=== PATIENT | male | born 1935 | race Two or more races ===

== ENCOUNTER 2025-01-27 06:33 | Inpatient (IN) | payer OTHER, SELFPAY ==
[2025-01-27] VITALS (17 sets, daily range): BP systolic 102–147; BP diastolic 62–90; BMI 25.6
--- NOTE | 2025-01-27 03:38 | ED.GENMED ---
History of Present Illness
General
Chief Complaint: Chest Pain
Source: patient and ambulance crew
Exam Limitations: clinical condition (Primary language is Guinean. 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
Time Seen by Provider: 01/27/25 03:38
History of Present Illness
History of Present Illness:
This is an 89-year-old gentleman who resides at home alone. He has history of hypertension, BPH, hyperlipidemia. He woke up approximately 1 hour prior to arrival to go to the bathroom and developed substernal chest pain radiating to his abdomen.
No history of similar episodes in the past.
His primary language is Guinean.
He arrives via EMS. Prehospital EKG concerning for anterior wall WY/STEMI. No name provided prehospital however, no old EKGs available for comparison.
He received 324 mg chewable aspirin prehospital as well as 3 sublingual nitroglycerin, thus far no improvement in pain.
His daily medications include Norvasc 10 mg, finasteride 5 mg. He takes 1 other medication he cannot recall. He had been on a statin in the past but currently not taking a statin.
He denies drug allergies.
Past History
Past History
ED Past Medical History: HTN, Hypercholesterolemia and Other (BPH)
ED Past Surgical History: None
Social History
Tobacco: Non-smoker
Alcohol: None
Drug: None
Personal:
Living: alone
Employment: Retired
Family History
Family History: Unable to obtain
Phy Exam
Physical Exam
Physical Exam:
GENERAL: 89-year-old gentleman appears his stated age, awake and alert, mildly to moderately anxious. Easily communicative.
EYE: pupils equal and reactive. anicteric
NECK: Supple, nontender, no meningismus, no significant adenopathy. No JVD.
ENT: posterior pharynx is clear, oral mucosa is mildly dry. No rhinorrhea.
CARDIAC: Regular rate and rhythm. no murmur.
LUNGS: Clear breath sounds bilaterally, no acute respiratory distress, no wheezes/rales/rhonchi
ABDOMEN: Soft, nondistended, without focal tenderness, no r/g, no cvat. normoactive BS.
NEUROLOGICAL: Alert and oriented x3, no focal neuro deficits.
SKIN: Warm and dry, normal color, skin intact. No rash.
MUSCULOSKELETAL: No C/C/E. peripheral pulses are full and equal b/l. No palpable tenderness.
PSYCH: Normal and appropriate interaction.
Scores
Heart Score for Chest Pain Patients
STEMI patient?: Yes
Course
Orders/Labs/Results
Orders:
Orders
01/27/25 03:33
EKG [Electrocardiogram (*1)] Urgent
Reason for Study: Chest Pain
EKG- Treatment ONCE
01/27/25 03:36
Complete Blood Count/With Diff Urgent
Comprehensive Metabolic Panel Urgent
PT/INR [Prothrombin Time] Urgent
Troponin I Urgent
01/27/25 03:47
Heparin 5,000 units .ROUTE .STK-MED ONE
Ticagrelor [Brilinta] 180 mg .ROUTE .STK-MED ONE
01/27/25 05:30
Code Status As Directed
Resuscitation Status: Full Code
Acetaminophen [Tylenol] 650 mg PO Q4HPRN PRN
01/27/25 05:31
Admit Patient As Directed
Co-Sign Provider:
Level of Care: Inpatient admission
Assign to:: IVU
Physician / Group: David
Diagnosis: Anterior STEMI
Reason for Hospitalization: Anterior STEMI
Expected length of stay greater than two midnights?: Yes
ELOS- Estimated Length of Stay in days: 4
I certify the patient meets the requirements for IP care: Yes
Electrocardiogram (*1) Urgent
Reason for Study: Other
Other Reason for Exam: s/p intervention
CARDIAC REHAB CONSULT Routine
Co-Sign Provider:
Cardiac Rehab & Exercise Evaluation Referral
Type of Cardiac Rehab Referral: Outpatient
Diagnosis: STEMI
Date of Diagnosis/Surgery: [id number]
Referring Provider: Yg Hernandez
[facility] Intensive Cardiac Rehab Exercise Prescription
The above named person is capable of participating in an intensive cardiac rehab exercise therapy program
under the guidance of the [facility] cardiac rehab staff, outpatient registered dieticians and
supervision of a physician.
ICR Program Objectives:
Provide supervised exercise, cooking classes, nutritional counseling and healthy mind-set education to
improve the function/symptom free work capacity to an optimal level as well as control risk factors to
prevent the progression of heart disease. During the supervised exercise therapy session some or all of
the following may be included in the cardiac rehab session: ECG telemetry, BP, heart rate, rate of
perceived exertion, symptoms/tolerance, cholesterol testing and education. Exercise modalities may
include: treadmill, upright or recumbent bike, spin bike, rowing machine, elliptical, recumbent
elliptical, arm-bike machine, recumbent stepper and free weights.
Intensity:
All CR staff will use ACSM guidelines: Most patients will exercise in the following range: Heart Rate
[place] range of 40% to 80% & Oxygen Uptake reserve range 40-80% (VO2R). Peak heart rate and VO2 are
derived from the cardiac rehab submaximal graded exercise test at RPE of 13/14 out of 20. Initial
intensity range: RPE 11 to 14/20 and may expand to 11 to 16/20.
Duration & Frequency:
If appropriate the patient will be progressed up to 40 minutes of exercise therapy. Patients will be
instructed to come three times a week in cardiac rehab and at a home/other gym to achieve optimal
physical activity/exercies i.e. 4000-10,000 steps per day.
Education:
The patient will receive one-on-one education during their orientation, initial exercise evaluation, ITP
reassessments and discharge session. Each exercise session will also include an education class (30-40
minutes).
Activity As Directed
Activity Level: Bedrest
Comment: refer to hemostasis device used for bedrest duration, then ambulate ad sandra
Oil And Gas Well Treatment Operator Procedure As Directed
Cardiac Cath Procedure: percutaneous coronary intervention
Femoral Artery Hemostasis Method As Directed
Procedure performed:: Percutaneous Coronary Int
Type of femoral hemostasis method used:: Internal Closure Device
Duration of bedrest (hours):: 4
Call provider if:: hematoma present after hemostasis achieved
Head of Bed-Restrictions As Directed
Comment: may elevate head of bed 30 degrees
Intake/ Output As Directed
Frequency: Per unit guidelines
Notify MD As Directed
Notify physician if: immediately for chest pain or bleeding from access site(s)
Site Checks As Directed
Check access site for bleeding/hematoma: Yes
Comment: on arrival, Q15min x4, Q30min x2, Q1 hr x2, Q2 hr x2, Q4 hr or per
protocol
Vascular Checks As Directed
Location: distal to access site - pulse check
Frequency: Other
Comment: on arrival, Q15min x4, Q30min x2, Q1 hr x2, Q2 hr x2, Q4 hr or per protocol
Vital Signs As Directed
Frequency: Other
Additional Instructions:: on arrival, Q15min x4, Q30min x2, Q1 hr x2, Q2 hr x2, then Q4 hr or per unit
protocol
PRN Pain Medication Management As Directed
May give lesser potent ordered pain med per pt: Yes
preference::
Protocol:: Medication orders for pain may be administered in a
manner that supports deferring to patient preference
when the pt is:
- Requesting an ordered lesser potent pain medication.
Least to most potent pain medications are defined
as: acetaminophen < NSAID < tramadol < opioids
(morphine, oxycodone, hydromorphone).
- Requesting a lesser dose of the same medication IF
ORDERED.
- Requesting a less intrusive route of administration
if both routes are prescribed by the provider (PO <
IV).
DX Deep Vein Thrombosis Video Routine
01/27/25 05:33
Glycohemoglobin (HgbA1c) Routine
01/27/25 05:35
Electrocardiogram (*1) Urgent
Reason for Study: Other
Other Reason for Exam: s/p intervention
Activity As Directed
Activity Level: Out of Bed- Chair
Comment: bed/chair rest for 2 hours then out of bed ad sandra
Oil And Gas Well Treatment Operator Procedure As Directed
Cardiac Cath Procedure: percutaneous coronary intervention
Intake/ Output As Directed
Frequency: Per unit guidelines
Notify MD As Directed
Notify physician if: immediately for chest pain or bleeding from access site(s)
Radial Artery Hemostasis Method As Directed
Instructions:: 3 mL out at 2 hour posts placement of band
3 mL out at 2 1/2 hours post placement of band
3 mL out at 3 hours post placement of band
Off at 3 1/2 hours post placement of band
If any oozing or hemotoma occurs:: re-inflate band and call provider
Site Checks As Directed
Check access site for bleeding/hematoma: Yes
Comment: on arrival, Q15min x4, Q30min x2, Q1 hr x2, Q2 hr x2, Q4 hr or per
protocol
Vascular Checks As Directed
Location: distal to access site - pulse check
Frequency: Other
Comment: on arrival, Q15min x4, Q30min x2, Q1 hr x2, Q2 hr x2, Q4 hr or per protocol
Vital Signs As Directed
Frequency: Other
Additional Instructions:: on arrival, Q15min x4, Q30min x2, Q1 hr x2, Q2 hr x2, then Q4 hr or per unit
protocol
01/27/25 06:00
Electrocardiogram (*1) IN AM
Reason for Study: Other
Other Reason for Exam: s/p intervention
Electrocardiogram (*1) Q6
Reason for Study: Other
Other Reason for Exam: s/p intervention
Comment: Obtain ECG with troponin
Cholesterol Lowering
At Your Request: Limited Participation
Cholesterol Lowering: Sodium, 2 Gram
Cardiovascular Evaluation IN AM
Nitroglycerin 100 mg/250 ml [Nitroglycerin Premix] 100 mg in 250 ml IV PER PROTOCOL
Initial dose in mcg/min, then titrate:: 5
Titrate to keep:: Chest Pain Free
Titrate to keep other:: SBP > 90 mmHg
Titrate by mcg/min:: 5 mcg/min, may increase by 10 mcg/min if dose > 20 mcg/min
Frequency of titrations (minutes):: every 5-10 minutes
Maximum dose in mcg/min:: 200
Begin to taper infusion when:: Remained at goal for 2hrs
Taper by mcg/min:: 5 mcg/min
Frequency of taper (minutes) if patient maintains goal:: 30
Taper to off?: Yes
If infusion off & no longer maintaining goal:: Contact Provider
01/27/25 08:00
Aspirin Chewable [Low Strength Aspirin] 81 mg PO DAILY
Pantoprazole [Protonix] 40 mg PO DAILY
01/27/25 09:15
Troponin I Q6H
01/27/25 12:00
Electrocardiogram (*1) Q6
Reason for Study: Other
Other Reason for Exam: s/p intervention
Comment: Obtain ECG with troponin
01/27/25 15:15
Troponin I Q6H
01/27/25 18:00
Electrocardiogram (*1) Q6
Reason for Study: Other
Other Reason for Exam: s/p intervention
Comment: Obtain ECG with troponin
Atorvastatin [Lipitor] 40 mg PO QPM
Enoxaparin Sodium [Lovenox] 40 mg SC QPM
01/27/25 20:00
Ticagrelor [Brilinta] 90 mg PO BID
01/28/25 05:57
Echo 2D MMode Color/Doppler [Echo 2D MMode Color/Doppler] Routine
Reason for Study: Anterior STEMI
Cardiology Consult: Yg Hernandez
01/28/25 06:00
Complete Blood Count/No Diff IN AM
01/29/25 06:00
Complete Blood Count/No Diff IN AM
Abnormal Lab Results
01/27/25 01/27/25 01/27/25
03:36 04:20 05:08
WBC 12.4 H 10^3/uL
(4.8-10.8)
RBC 4.42 L 10^6/uL
(4.70-6.10)
Hgb 12.8 L g/dL
(13.0-18.0)
Hct 38.9 L %
(39.0-52.0)
MCHC 32.9 L g/dL
(33.0-37.0)
MPV 11.2 H fL
(7.4-10.4)
Absolute Neuts (auto) 7.6 H 10^3/uL
(1.4-6.5)
Absolute Monos (auto) 1.0 H 10^3/uL
(0.1-0.6)
Sodium 134 L mmol/L
(135-145)
Glucose 154 H mg/dl
(70-99)
Troponin I 0.037 H* ng/ml
POC ACT Low Range 166 H Seconds 318 H Seconds
(116-155) (116-155)
01/27/25 03:36
01/27/25 03:36
Vital Signs
Initial and Last Documented VS:
Initial Vital Signs
Pulse Resp BP Pulse Ox
71 18 102/65 96
01/27/25 03:37 01/27/25 03:37 01/27/25 03:37 01/27/25 03:37
Last Documented Vital Signs
Temp Pulse Resp BP Pulse Ox
97.8 F 71 28 134/82 94
01/27/25 03:41 01/27/25 06:45 01/27/25 04:00 01/27/25 04:00 01/27/25 06:45
MDM/Problems Addressed
Differential Diagnosis Includes:
Concern for acute WY/STEMI
Aortic dissection
GERD
Acute intra-abdominal pathology
MDM/Problems Addressed:
Acute chest pain
Prehospital EKG concerning for acute anterior wall WY with anterior Q's. No old EKGs to compare.
Upon arrival to the ED patient continues with chest pain and EKG upon arrival notes progression of ST elevation anterolaterally consistent with acute anterior wall WY/STEMI.
I have been in contact with test center manager, Dr. Hernandez just prior to patient's arrival and during patient's arrival.
STEMI alert initiated promptly upon ED EKG.
Patient does have a son who resides in [place]. Son has been contacted and is on his way. Lives over an hour away.
Although patient's primary language is Guinean, he does well with understanding and speaking Azeri. Language line nuclear plant equipment operator utilized as well.
Chronic conditions affecting care: HTN and Other (Hyperlipidemia)
*Pulse Oximetry
SaO2: 96
Oxygen Mode of Delivery: Room air
Patient hypoxic: no
*EKG
Interpreted by ED Provider?: Yes
Interpretation: abnormal
Comparison EKG: no comparison EKG present
Rate: bradycardiac
Rhythm: sinus
[place]: normal axis
Interval: normal QT interval
QRS Pattern: poor R-wave progression
Ischemia: ST elevation
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
Rate: bradycardiac
Interpretation: normal
Rhythm: sinus
*Critical Care Note
Total Time (30-74mins, 75-104mins- exclusive of procedures): 25
comment:
Critical care statement: A total of 25 minutes of critical care time was provided for this patient. This includes management of unstable vital signs, evaluation of the patient at bedside, reviewing the patient's pertinent medical records, discussion
with consultants, review of old EKGs and review of pertinent medical records. This time with separate from time utilized to perform the aforementioned documented procedures
Update Note
Update Note:
03:45
Patient received 180 mg Brilinta, chewed, IV heparin 5000 units.
He did receive chewable aspirin 324 mg prehospital as well as 3 sublingual nitroglycerin.
Initially no improvement in pain but currently resting much more comfortably with marked improvement in pain. Chest pain has not completely resolved but markedly improved.
He remains hemodynamically stable. No respiratory distress.
Awaiting cardiology and Oil And Gas Well Treatment Operator team arrival.
ED Attending Note
-
Portions of this chart may have been created with voice recognition software.� Occasional wrong word or��sound alike� substitutions may have occurred due to the inherent limitations of voice recognition software.
Discharge Plan
Departure
Patient Disposition: Admit
Date of Disposition: 01/27/25
Time of Disposition: 03:43
Admit to: computer lab assistant
Admit to doctor: David
Presentation/result/management discussed w/ accepting MD/DO: Cardiology
Condition: Serious
Discharge Problem:
ST elevation (STEMI) myocardial infarction
Interventions
Interventions:
*Risk Screen - Suicide Last Done: 01/27/25 04:00
*General Assessment Last Done: 01/27/25 03:48
*Neglect/Abuse Screening Last Done: 01/27/25 04:00
*ED- Fall Risk Assessment Last Done: 01/27/25 03:48
*ED COVID-19 Vaccine History Last Done: 01/27/25 03:48
*ED Influenza Vaccine History Last Done: 01/27/25 03:48
*Nursing Disposition Last Done: 01/27/25 04:05
ED- Cardiac Assessment Last Done: 01/27/25 03:45
Discharge Date and Time
Discharge Date/Time: 01/27/25 04:05
[2025-01-27 03:54] LABS: Hematocrit 38.9 % (39.0-52.0); Hemoglobin 12.8 g/dL (13.0-18.0); Mean Corp Hgb Conc. 32.9 g/dL (33.0-37.0); Mean Corpuscular Volume 88.0 fL (80.0-94.0); Nucleated Red Blood Cells % 0 % (-); Platelet Count 299 10^3/uL (130-400); Red Cell Dist. Width 14.0 % (11.5-14.5)
[2025-01-27 04:08] LABS: INR 1.10; PT 14.5 Sec (11.4-14.6)
[2025-01-27 04:14] LABS: ALT (SGPT) 20 U/L (0-50); AST (SGOT) 21 U/L (17-59); Albumin 3.8 g/dl (3.5-5.0); Alkaline Phosphatase 52 U/L (38-126); Blood Urea Nitrogen 19 mg/dl (9-20); Calcium 8.9 mg/dl (8.4-10.2); Carbon Dioxide 27 mmol/L (22-30); Chloride 104 mmol/L (98-107); Estimated Creatinine Clearance 46 ml/min; Glucose 154 mg/dl (70-99); Potassium 3.5 mmol/L (3.5-5.1); Sodium 134 mmol/L (135-145); Total Protein 7.1 g/dl (6.3-8.2); eGFR > 60.00
[2025-01-27 04:35] LABS: ACT-LR - POC 166 Seconds (116-155)
[2025-01-27 04:42] LABS: Troponin I 0.037 ng/ml
[2025-01-27 05:24] LABS: ACT-LR - POC 318 Seconds (116-155)
--- NOTE | 2025-01-27 05:27 | ITS.CL.CATH ---
Machine Icer - Catheterization
Cardiac Catheterization
Procedure Report:
LEFT HEART CATH AND CORONARY INTERVENTION
Date of Procedure: January 27, 2025
Referring: [facility] Emergency Department
PROCEDURES:
1. Left heart catheterization with coronary and single-plane left ventriculography
2. Successful stenting of ostial to mid LAD with a 2.5 x 38 mm Mcgill stent that was implanted at nominal pressures and postdilated with a 2.5 mm noncompliant balloon
INDICATION: This is an 89-year-old primarily Wallisian-speaking gentleman who lives locally with his son ([place]). His son was away for the weekend at the [facility] when the patient experienced the sudden onset of abdominal and mid
epigastric/chest discomfort beginning approximately 1 hour prior to admission. His prehospital electrocardiogram was suggestive of an evolving anterior wall myocardial infarction. Informed consent proved extremely difficult given the language
barrier. I did call his son. Patient stated that he did not want any surgeries while the son agreed to proceed with percutaneous revascularization to which the patient agreed.
His past medical history is notable for hypertension, hyperlipidemia, and a reported 'leaky valve'. He is hard of hearing and wears hearing aids. No tobacco, alcohol history and no allergies per family. His passed 6 months ago today.
ACCESS: Right radial artery, 6 Angolan sheath. Severe tortuosity in the right subclavian artery limiting catheter torque. Radial access was abandoned in favor of right common femoral access. Ultrasound guidance was utilized and a 6 Angolan sheath
was inserted
HEMODYNAMICS (mmHg):
AO (s/d, m) : 116/65, 87
LV (s/d) : 118/20
LVEDP : 32
CORONARY FINDINGS
Dominance: Right
LEFT MAIN: 50% distal left main stenosis
LEFT ANTERIOR DESCENDING: The LAD arises normally fill left main and has a proximal 60-70% stenosis and 90% stenosis in the mid LAD spanning the origin of a small to medium caliber diagonal branch. The mid to distal LAD has a smooth focal 60%
stenosis.
CIRCUMFLEX: The circumflex is a medium caliber nondominant vessel. There is a 50% ostial circumflex stenosis. OM 2 has only minor luminal irregularities. The circumflex continues in the AV groove supplying a third obtuse marginal branch and
several small posterolateral branches. A well-developed collateral is noted to fill the posterolateral branch from the occluded RCA
RIGHT CORONARY: The right coronary artery is a heavily calcified dominant vessel that is subtotally occluded proximally and 100% occluded in its midportion. The mid to distal right coronary artery fills via [id number] collaterals with a
well-developed collateral from the distal circumflex
ANGIOPLASTY PROCEDURE DETAIL: Upon review of the diagnostic angiogram the decision was made to proceed directly with percutaneous revascularization of the ostial/proximal to mid LAD. Intravenous heparin was administered and the ACT was monitored
throughout the procedure. The patient received aspirin and a 180 mg loading dose of ticagrelor.
The origin of the left main was cannulated with a 6 Angolan EBU 3.5 guiding catheter and a short BMW guidewire was advanced with a moderate degree of difficulty across the stenosis in the proximal to mid LAD. The tip of the wire was redirected into
the distal vessel. A long BMW guidewire was then positioned in the distal circumflex. Balloon predilation of the LAD was performed with a 2.0 mm Euphora balloon and was followed by placement of a 2.5 x 38 mm Red stent that was positioned at the
ostium of the LAD and implanted at nominal pressures. The stent was postdilated with a 2.5 mm noncompliant balloon. Antegrade flow was maintained in the circumflex with stent deployment and following postdilation.
VENTRICULOGRAPHY: Left ventriculography was performed at conclusion of the interventional coronary procedure. The digital single-plane left ventricular ejection fraction is visually estimated at 35-40%. There is apical dyskinesis and anterolateral
hypokinesis. +2-3 mitral regurgitation is noted
SEDATION: 63 minutes of procedural sedation was utilized. An independent medical clerical assistant was present to assist with and help manage the patient's level of consciousness and physiologic status
RADIATION SUMMARY: Fluoro Time (min): 15.8, Dose (mGy): 1067, DAP (Gy.cm2) : 62.7
CONCLUSIONS
1. Acute coronary syndrome secondary to high-grade proximal and subtotal occlusion of the mid LAD. Chronic total occlusion of the right coronary artery. Successful stenting of the ostium to mid LAD with a 2.5 x 38 mm Red stent that was implanted
at nominal pressures and postdilated with a 2.5 mm noncompliant balloon
2. Mild to moderately reduced left ventricular systolic function. The apex is dyskinetic with hypokinesis noted in the anterolateral wall. There is 2-3+ mitral regurgitation.
RECOMMENDATIONS
1. The patient continued to experience substernal chest pressure at the conclusion of the interventional procedure. This was an exceedingly difficult situation given language barrier and expressed differences in patient and family desire for
aggressiveness of therapy. There is ALEXEY-3 flow in the circumflex and LAD as well as chronic total occlusion of the RCA. We will continue to trend serial troponin levels and begin IV nitroglycerin for chest discomfort
2. Uninterrupted dual antiplatelet therapy
3. High intensity statin
4. Hold blood pressure medications at this point. Will monitor over the next several days and add back medications as blood pressure tolerates
[2025-01-27] MEDS: NITROGLYCERIN PREMIX 250 IV (06:00)
--- NOTE | 2025-01-27 07:25 | PTCARENOTE ---
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 Tele monitor applied pt SR w/ 1st AV block. Pulse ox 89% RA, applied 3L of O2, pt currently sating 97%. Post cath ekg obtained per order, EKG result STEMI. Pt c/o 08/11 midsternal CP along w/ b/l arm pain.
David made aware. Orders obtained to start nitro gtt, nitro infusing at 5mcg/min. Family at bedside, pt primary language [place]. Language line at bedside. Right radial w/ TR band. + radial and + b/l DP pulses. Educated patient about activity
restrictions. Son Kurt at bedside, provided info in regards to health history and that patient lives with son. Call rich within reach. Report given to day shift WAQAS Serra.
[2025-01-27] MEDS: TYLENOL 650 MG PO (08:02)
[2025-01-27] MEDS: LOW STRENGTH ASPIRIN 81 MG PO (08:03)
[2025-01-27] MEDS: PROTONIX 40 MG PO (08:03)
--- NOTE | 2025-01-27 08:46 | W.PN.CARDCBS ---
Today's Communication / Plan
-
Doing well status post anterior wall NM and LAD stent
Check echo
Get old records
Impression / Plan
-
Impression:
Status post anterior STEMI/status post LAD stent 01/27/2025
Cardiomyopathy with ejection fraction of 35 to 40% on catheterization with apical dyskinesis and anterolateral hypokinesis
History of hypertension
Hypercholesterolemia
'Leaky valve '/moderate to severe mitral regurgitation on V-gram during catheterization
Catheterization 01/27/2025
CONCLUSIONS
1. Acute coronary syndrome secondary to high-grade proximal and subtotal occlusion of the mid LAD. Chronic total occlusion of the right coronary artery. Successful stenting of the ostium to mid LAD with a 2.5 x 38 mm Paola stent that was implanted
at nominal pressures and postdilated with a 2.5 mm noncompliant balloon
2. Mild to moderately reduced left ventricular systolic function. The apex is dyskinetic with hypokinesis noted in the anterolateral wall. There is 2-3+ mitral regurgitation.
Plan:
Doing okay at present status post LAD stent
There are no signs or symptoms of CHF at present
Will add low-dose Coreg
Will need to check echocardiogram
Need to get old records from prior cardiology
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
Subjective
Date of Service: January 27, 2025
No complaints
Objective
Labs:
01/27/25 03:36
01/27/25 03:36
Labs
Hgb 12.8 g/dL (13.0-18.0) L 01/27/25 03:36
Hct 38.9 % (39.0-52.0) L 01/27/25 03:36
Plt Count 299 10^3/uL (130-400) 01/27/25 03:36
PT 14.5 Sec (11.4-14.6) 01/27/25 03:36
INR 1.10 01/27/25 03:36
Sodium 134 mmol/L (135-145) L 01/27/25 03:36
Potassium 3.5 mmol/L (3.5-5.1) 01/27/25 03:36
BUN 19 mg/dl (9-20) 01/27/25 03:36
Creatinine 1.1 mg/dL (0.7-1.3) 01/27/25 03:36
Glucose 154 mg/dl (70-99) H 01/27/25 03:36
Troponins
01/27/25 01/27/25 01/27/25
03:36 05:45 11:45
Troponin I 0.037 H* Cancelled Cancelled
01/27/25
17:45
Troponin I Cancelled
Vital Signs and I&O:
Vital Signs
Temp Pulse Resp BP Pulse Ox
97.4 F 68 18 131/78 97
01/27/25 05:45 01/27/25 07:00 01/27/25 05:45 01/27/25 07:00 01/27/25 07:11
Vital Signs
Temp Pulse Resp BP Pulse Ox
97.4 F 68 18 131/78 97
01/27/25 05:45 01/27/25 07:00 01/27/25 05:45 01/27/25 07:00 01/27/25 07:11
Physical Exam
Physical Exam
General: Well developed, well nourished in NAD.
Neck: Supple, no JVD, HJR, carotids +2 B/L, no bruits bilaterally.
Heart: Non displaced PMI, RRR, no murmurs, No S3, S4, no rubs.
Lungs: Clear to auscultation bilaterally, no wheeze, rhonchi, rubs bilaterally,
normal expiratory phase.
Extremities: No clubbing, cyanosis or edema bilaterally.
Neuro: Grossly nonfocal, awake, alert and oriented x3.
[2025-01-27 10:19] LABS: HDL Cholesterol 42 mg/dl; LDL Cholesterol, Calculated 105 mg/dl; Very Low Density Lipoprotein 14 mg/dl (0-30)
[2025-01-27 10:30] LABS: Troponin I 222.000 ng/ml
[2025-01-27] MEDS: COREG 3.125 MG PO ×2 (10:35→20:41)
[2025-01-27] MEDS: LASIX 40 MG IV (13:21)
--- NOTE | 2025-01-27 14:21 | PTCARENOTE ---
Assumed care of the pt @ 0700. PT is [place] speaking and family at bedside. SR 1st HB vss RT tr band in placed and rt groin dressing c/d/i. On Nitro gtt @ 5 mcgs/min. POC discussed with pt and family. verbalized understanding. RT TR band when
removed 3 ml air site was oozing 3 ml were placed back in.
--- NOTE | 2025-01-27 14:24 | PTCARENOTE ---
Rt radial TR band moved dressingc/d/i.
--- NOTE | 2025-01-27 14:25 | PTCARENOTE ---
[address] Shoemaker notified @ [id number].
--- NOTE | 2025-01-27 14:28 | PTCARENOTE ---
1250 Pt c/o sob lungs coarse crackles. Pulse ox 95% on RA (refused NC) Dr Shoemaker notified and ordered 40 mg Lasix IVP.
[2025-01-27 14:49] LABS: Glycohemoglobin (HgbA1c) 5.8 % (4.0-5.9)
[2025-01-27 15:47] LABS: Magnesium 2.0 mg/dl (1.6-2.3); Potassium 3.6 mmol/L (3.5-5.1)
[2025-01-27 16:14] LABS: Troponin I 326.000 ng/ml
--- NOTE | 2025-01-27 16:56 | PTCARENOTE ---
TT Dr Shoemaker for Troponin 326 Pt coughed up sm amt bloody sputum and pt c/o rt mid arm pain. Repeat Troponin 2100.
[2025-01-27] MEDS: LOVENOX SC (18:35)
[2025-01-27] MEDS: LIPITOR 40 MG PO (18:38)
[2025-01-27] MEDS: BRILINTA 90 MG PO (20:41)
[2025-01-27 22:04] LABS: Troponin I 240.000 ng/ml
[2025-01-28] VITALS (10 sets, daily range): BP systolic 117–155; BP diastolic 65–92; PULSE 2–75; BMI 24.2
--- NOTE | 2025-01-28 00:49 | PTCARENOTE ---
Received pt @ change of shift. AAOx3, VSS-- NSR on monitor. Pt c/o SOB when trying to fall asleep. On 2L NC for comfort-- instructed to keep pt on it for night per KERRY Ba. Visually, pt looks comfortable with steady and rhythmic
breaths. Denies chest pain. Right radial site clean, dry, and intact. No swelling or ecchymosis present @ this time. Right groin site clean, dry, and intact. No ecchymosis or hematoma present @ this time. Son bedside, staying the night per request
of pt. Discussed plan of care with both, verbalize understanding. Call rich within reach.
--- NOTE | 2025-01-28 00:59 | PTCARENOTE ---
Pt continues to c/o SOB on and off, 96-99% on 2 L NC and seems comfortable until he drifts off to sleep a little bit. He wakes up SOB. After speaking with his son, he informed me his fell asleep and didn't wake up after being in the hospital in
July. Reached out to Dr. Shoemaker (second hand paper machine cards for [employer]) and verbally ordered 0.25 mg Xanax PO.
[2025-01-28] MEDS: XANAX 0.25 MG PO (01:36)
[2025-01-28] MEDS: KCL 40 MEQ PO ×2 (03:17→14:11)
--- NOTE | 2025-01-28 03:33 | PTCARENOTE ---
Language line used for this communication: Pt continue to state he does 'not feel well.' Denies CP and SOB. States he is 'pouring cold water on himself and that makes him feel better.' The oxygen bothers him and he states it does not help him. Pt
agrees to try humidification and to sit in the chair instead of laying in bed. Reached out to Vincenzo Fagan (CV PA) about adding chemistry to check K levels. Order for K placed and given-- see MAR. Pt agrees to call RN with any additional
discomfort.
[2025-01-28 03:57] LABS: Hematocrit 40.0 % (39.0-52.0); Hemoglobin 13.4 g/dL (13.0-18.0); Mean Corp Hgb Conc. 33.5 g/dL (33.0-37.0); Mean Corpuscular Volume 86.8 fL (80.0-94.0); Platelet Count 325 10^3/uL (130-400); Red Cell Dist. Width 14.2 % (11.5-14.5)
[2025-01-28 04:28] LABS: Blood Urea Nitrogen 16 mg/dl (9-20); Calcium 9.0 mg/dl (8.4-10.2); Carbon Dioxide 27 mmol/L (22-30); Chloride 104 mmol/L (98-107); Estimated Creatinine Clearance 50 ml/min; Glucose 141 mg/dl (70-99); Magnesium 2.0 mg/dl (1.6-2.3); Potassium 3.4 mmol/L (3.5-5.1); Sodium 135 mmol/L (135-145); eGFR > 60.00
--- NOTE | 2025-01-28 06:39 | PTCARENOTE ---
Pt's son came out to get RN because pt was feeling SOB, again. RN listened to lungs, and while listening pt began to fall asleep. Pt's breathing became more regular, and then stopped for about 5-8 seconds. Chest was not rising or falling. Pt woke up
gasping for air and panicking. Took a few minutes for pt to calm down again, began to drift off and again stopped breathing for about 10 seconds. Informed Vincenzo Fagan ( PA) about what was witnessed-- advised to inform respiratory therapist,
Anselmo Resendez. Chest x-ray ordered and obtained. Attempting to trial CPAP to see if it could help pt get some sleep. Will inform oncoming nurse of observation to situation.
[2025-01-28] MEDS: COREG 3.125 MG PO (08:28)
[2025-01-28] MEDS: BRILINTA 90 MG PO ×2 (08:28→20:46)
[2025-01-28] MEDS: PROTONIX 40 MG PO (08:28)
[2025-01-28] MEDS: LOW STRENGTH ASPIRIN 81 MG PO (08:28)
--- NOTE | 2025-01-28 09:26 | RESPNOTE ---
Respiratory: patient declined to wear Bilevel mask, tried both Full face and nasal mask. Pressure was reduced as well to 10/4. RN aware.
--- NOTE | 2025-01-28 12:05 | W.PN.CARDCBS ---
Addendum entered and electronically signed by Makayla Vega DO 01/28/25 22:23:
I saw and examined the patient.
The Building Code Inspector's note was reviewed and I agree with the note.
Comment: Patient seen and examined with [id number] at bedside. I did offer to use language line but patient and [id number] declined stating that she would translate. We reviewed his presenting symptoms, hospital testing/studies and
answered all questions. He denies chest pain or pressure. Shortness of breath has improved since IV Lasix. No palpitations.
GEN: NAD on RA
HEENT: mmm
LUNGS: Bronchovesicular breath sounds. No wheezes. Fine crackles right base
CV: Regular. Positive S1-S2. Occasional ectopy. 2/6 SM
ABD: Soft, nontender. Positive bowel sounds
EXT: No edema B/L LE. Right radial site intact. Right groin site intact without hematoma.
NEURO: Gross non-focal
Plan:
Acute anterior STEMI by prehospital EKG for emergent cardiac catheterization 01/27/2025 With acute heart failure with reduced ejection fraction secondary to ischemic cardiomyopathy
-Cardiac catheterization found right dominant system with 50% distal left main. LAD had a proximal 60-70% stenosis and a 90% stenosis in the mid LAD spanning the origin of a small to medium diagonal branch. Mid to distal LAD has a smooth 60%
stenosis. Circumflex has ostial 50% stenosis with OM 2 having minor luminal regularities. RCA is heavily calcified dominant vessel subtotally occluded proximally and 100% occluded in its midportion. Mid to distal RCA fills via [id number]
collaterals with a well-developed collaterals from the distal circumflex. LVEDP 32. Ventriculogram with EF estimated 35-40%, apical dyskinesis and anterolateral hypokinesis with 2�3 mitral regurgitation.
-Patient underwent successful stenting of the ostial to mid LAD with a 2.5 X30 8 mm Red stent.
-Troponin peaked at 326 and
- 2D echocardiogram demonstrated moderate reduced LV systolic function visually estimated 35% with akinesis of the mid inferior septum, apical septum and apex with hypokinesis of the mid inferior and severe hypokinesis of the mid anterior wall.
Echocardiogram also noted mitral sclerosis with mild to moderate eccentric anteriorly directed mitral regurgitation. Trileaflet aortic valve with mild aortic stenosis, peak/mean transaortic gradients 29/15 mmHg with mild to moderate aortic
regurgitation. There was mild tricuspid regurgitation with estimated pulmonary artery pressures 58 mmHg assuming a right atrial pressure of 10 mmHg. No pericardial effusion.
-Continue aspirin and Brilinta 90 mg twice daily for 1 year
-Patient remains in sinus rhythm on telemetry with frequent PVCs and 4�5 beat runs of NSVT
-Increase new carvedilol to 6.25 mg twice daily
-Monitor on telemetry. For more significant ectopy could consider discharge with a LifeVest
-Lipid profile on admission: Total cholesterol 161, triglycerides 72, LDL 105, HDL 42. Continue new statin for goal LDL 55 to 60 mg/dL
-Outpatient valsartan 160 mg daily was continued. Will have case management assess cost of Entresto and switch to Entresto if not cost prohibitive
-Case management also consulted for cost assessment of SGLT2 inhibitor
-Discontinue outpatient as outpatient amlodipine
-Shortness of breath likely secondary to heart failure decompensation in the setting of acute anterior ID and ischemic cardiomyopathy�will check proBNP. Patient received Lasix 40 mg IV 01/27 and 01/28 with improved symptoms. Patient is Lasix na�ve.
Will monitor response although anticipate he may need another dose tomorrow.
-Heart failure education
-Cardiac rehab consulted
-Post ID complication monitoring and supportive care
-Will need outpatient repeat echocardiogram in 3 months to reassess heart function as well as reevaluate valvular heart disease/mitral regurgitation and pulmonary pressures
Suspected sleep apnea
-Patient noted to have witnessed sleep apnea event by nursing and there was an attempt at CPAP during the night on 01/27/2025, the patient was intolerant. On recommendation of respiratory therapist there was an attempt at BiPAP at 10/ early
morning on 01/28/2025, but patient was not tolerant to this as well.
-Appreciate pulmonary consultation with plan for nocturnal pulse oximetry
Prediabetes with hemoglobin A1c 5.8%�low carbohydrate/cardiac healthy diet. Considering adding Farxiga given systolic heart failure which will also help with blood sugar control, goal normoglycemia
Mujnuaec-wl-mrh will try to track down the name of patient's outpatient clinical documentation clerk. They are considering transferring care to our office.
Original Note:
Today's Communication / Plan
-
Lasix 40 mg IV x 1 now
Consult to pulmonology
Updated patient's daughter, Angie, by phone for 15 minutes
Impression / Plan
-
PCP: Dr. Self in [place], phone number unknown, he can't find their card
Cardiology: Name unknown, he can't find their card
Impression:
Admitted with acute ID open LAD PCI 01/27/2025
CAD
s/p acute anterior STEMI with peak troponin 326 01/27/2025
s/p 2.5 mm [place] MERYL to the ostial to mid LAD, residual NURSERYPERSON RCA and ALEXEY-3 flow in the Circ and LAD at end of case 01/27/2025
ICM EF 35-40% by v-gram 01/27/25
HTN
Hypercholesterolemia
Reported h/o valvular heart disease and evidence of MR at time of cath 01/27/25
Witnessed BARTOLOME without h/o BARTOLOME
intolerant to attempts at CPAP and BiPAP 01/27/25 into 01/28/25
Echo 01/28/25: Study pending
Plan:
-Patient came to the ER with complaints of abdominal and mid epigastric/chest discomfort and prehospital ECG suggested evolving anterior wall ID. Patient was taken urgently to the Videotape Operator where he was found to have high-grade proximal and subtotal
occlusion of the mid LAD that was treated with SUPERVISOR NEWSPAPER DELIVERIES and 2.5 mm Red MERYL. Patient is now admitted for post ID care.
-Troponin peaked at 326 and EF was down to 35 to 40% BiV gram on 01/27/2025. Echo order placed and study is pending
-Patient is tolerating aspirin 81 mg daily and Brilinta 90 mg BID, both are new medications this admission
-New to Coreg 3.125 mg BID
-Outpatient dose of amlodipine 10 mg daily is on hold
-Outpatient dose of valsartan 160 mg daily was held on admission due to hypotension, but will restart now, orders placed by me.
-Labs reviewed by me and Cre is stable at 1.0. Repeat labs ordered for AM by me
-Patient noted to have witnessed sleep apnea event by nursing and there was an attempt at CPAP during the night on 01/27/2025, the patient was intolerant. On recommendation of respiratory therapist there was an attempt at BiPAP at 01/05 early
morning on 01/28/2025, but patient was not tolerant to this as well. There is no known h/o BARTOLOME. I talked with patient's daughter, Agnie, using patient's cell phone for 15 minutes on 01/28/2025 and the family has a concern that patient may have a PE
due to his ACS event and the coronary blockage being pushed out and ending up in the lungs, I attempted to explain to patient and family that that would not have happened.
-Consultation to pulmonology regarding concerns for BARTOLOME and that patient has been intolerant to attempted therapies including CPAP, BiPAP and oxygen via NC thus far.
-LVEDP was 32 that time of cath 01/27/2025. Patient was given Lasix 40 mg IV x 1 on 01/27/2025. Pulse ox is now 97% on RA. Patient denies SOB currently. Patient was not taking a diuretic prior to admission. Will try another dose of Lasix 40 mg
IV x 1 now, ordered by me
- Patient's daughter reports that patient can understand Greek, but has difficulty speaking Greek. I offered to communicate with patient via language line assignment desk editor services and patient would rather hear from his daughter.
Progress Note - Acquisition Analyst
Subjective
Date of Service: January 28, 2025
Patient was SOB last night and this morning and feels that CPAP, BiPAP and oxygen via NC only made things worse
Objective
Labs:
01/28/25 03:24
01/28/25 03:24
Labs
Hgb 13.4 g/dL (13.0-18.0) 01/28/25 03:24
Hct 40.0 % (39.0-52.0) 01/28/25 03:24
Plt Count 325 10^3/uL (130-400) 01/28/25 03:24
PT 14.5 Sec (11.4-14.6) 01/27/25 03:36
INR 1.10 01/27/25 03:36
Sodium 135 mmol/L (135-145) 01/28/25 03:24
Potassium 3.4 mmol/L (3.5-5.1) L 01/28/25 03:24
BUN 16 mg/dl (9-20) 01/28/25 03:24
Creatinine 1.0 mg/dL (0.7-1.3) 01/28/25 03:24
Glucose 141 mg/dl (70-99) H 01/28/25 03:24
Troponins
01/27/25 01/27/25 01/27/25
03:36 05:45 09:24
Troponin I 0.037 H* Cancelled 222.000 H* D
01/27/25 01/27/25 01/27/25
11:45 15:05 17:45
Troponin I Cancelled 326.000 H* D Cancelled
01/27/25
20:56
Troponin I 240.000 H* D
Vital Signs and I&O:
Vital Signs
Temp Pulse Resp BP Pulse Ox
98.6 F 77 24 141/80 95
01/28/25 11:11 01/28/25 08:30 01/28/25 11:11 01/28/25 08:28 01/28/25 11:11
Vital Signs
Temp Pulse Resp BP Pulse Ox
98.6 F 77 24 141/80 95
01/28/25 11:11 01/28/25 08:30 01/28/25 11:11 01/28/25 08:28 01/28/25 11:11
Intake & Output
01/26/25 01/27/25 01/28/25 01/29/25
06:59 06:59 06:59 06:59
Output Total 1700 / 1700 200 / 200
Balance -1700 / -1700 -200 / -200
Physical Exam
Physical Exam
GEN: NAD, AAO x 3 with the help of his daughter as assignment desk editor
HEENT: EOMI, MMM
LUNGS: RA. CTA B/L, no wheeze
CV: SR on telemetry. Reg, S1/S2, 04/09 syst LSB
ABD: ND
EXT: No edema B/L LE
NEURO: Gross non-focal
SKIN: No rash
--- NOTE | 2025-01-28 13:44 | CON.PUL ---
Consultation
Consultation Request
Date/Time Consultation Requested: 01/28/2025
Date/Time Consultation Performed: 01/28/2025
Medical History
-
Chief Complaint: Chest pain
History of Present Illness:
Patient is an 89-year-old female who presented to the hospital on 01/27 with abdominal and lower chest discomfort. EKG was concerning for ST elevation OK and patient was taken to Master Police Detective. Patient had successful stenting of ostial to mid LAD and
has been on dual antiplatelet therapy. Reportedly patient had witnessed apneic episodes and was empirically started on CPAP and subsequently BiPAP with poor tolerance overnight. Pulmonary consultation was requested to comment further on suspected
sleep disordered breathing.
PAST MEDICAL HISTORY:
1. Hypertension.
2. Hyperlipidemia.
3. BPH.
ALLERGIES: Reported none by son.
MEDICATIONS: Unknown.
SOCIAL HISTORY: Tobacco: None. Alcohol: None.
FAMILY HISTORY: Noncontributory.
Allergies / Home Medications
Allergies
Allergy/AdvReac Type Severity Reaction Status Date / Time
No Known Allergies Allergy Unverified 01/27/25 03:34
Home Medications
�Medication �Instructions �Recorded �Confirmed �Last Taken �Type
amlodipine 10 mg tablet 10 mg PO DAILY 01/27/25 01/27/25 01/26/25 History
finasteride 5 mg tablet 5 mg QMWFSU 01/27/25 01/27/25 01/26/25 History
valsartan 160 mg tablet 160 mg PO DAILY 01/27/25 01/27/25 Unknown History
Review of Systems
-
Hematologic/Lymphatic: Other (No new symptoms reported. )
Vitals / Labs / Diagnostic Testing
Vital Signs
Temp Pulse Resp BP Pulse Ox
98.6 F 77 24 141/80 95
01/28/25 11:11 01/28/25 08:30 01/28/25 11:11 01/28/25 08:28 01/28/25 11:11
Lab Data
01/28/25 03:24
01/28/25 03:24
Diagnostic Testing:
Physical Exam
-
HEENT: Normocephalic
Cardiovascular: S1/S2
Respiratory: Clear
GI: Soft and Non Distended
Neurology: Awake and Alert
Skin: Warm
General: Comfortable
Assessment
-
#1. Concern for sleep disordered breathing
- Patient at risk of both obstructive and central sleep apnea with underlying CHF. BMI 25.6, will need additional testing to establish diagnosis.
- BMP reviewed without elevated bicarb, no s/s of encephalopathy, not suggestive of hypercapnia. Check venous blood gas in a.m.
- Empiric trial of CPAP and BiPAP attempted with poor tolerance. Hold off additional PAP therapy pending overnight oximetry and outpatient PSG.
- Check overnight oximetry testing to see if patient has significant desaturations which might necessitate discharge on nighttime home oxygen.
- Outpatient follow-up with [facility] pulmonary clinic.
- Suspect currently elevated left ventricular end-diastolic pressure and acute OK with volume overload contributing to his symptoms as well. Agree with continued diuresis and assess for any need for nighttime supplemental oxygen.
- Patient's episode of dyspnea do not appear to be suggestive of sleep disordered breathing, more likely related to congestive heart failure/pulmonary edema.
Other medical diagnoses:
- Acute OK, s/p PCI LAD 01/27/2025
- HTN and HLD
- Mitral regurgitation
- Ischemic cardiomyopathy, LVEF 35% per ventriculography
Total time spent on this consultation/encounter _68___ minutes which includes review of history, physical exam, medications, laboratory data, personal review of imaging, extensive review of outpatient records, discussion with care team and
respiratory therapy.
Data:
CXR 01/2025: Mildly widened appearance of the mediastinum which could be secondary to aortic uncoiling versus ascending thoracic aortic aneurysm.
Increased density along the medial right lung base which may be artifact with underlying airspace disease not excluded. No pleural effusions or pneumothorax.
Questionable groundglass disease within the left midlung.
[facility] 01/2025: 1. Left heart catheterization with coronary and single-plane left ventriculography
2. Successful stenting of ostial to mid LAD with a 2.5 x 38 mm Red stent that was implanted at nominal pressures and postdilated with a 2.5 mm noncompliant balloon
- LVEDP 32
[2025-01-28] MEDS: LASIX 40 MG IV (14:11)
[2025-01-28] MEDS: DIOVAN 160 MG PO (14:11)
--- NOTE | 2025-01-28 14:57 | CM ---
Reviewed chart, Met with Mr. Fregoso to review discharge plans. He states prior to admission he resides alone in a three story home. He states prior to admission he was independent with ambulation and adls. He states he does not have any DME in
the home. He states he has a cleaning lady who comes in to clean. He has a prescription plan. Telephone call to [facility] to check on co-pay for Brilinta 90 mg po bid. His co-pay would be zero. He states he is planning on staying with his son for
awhile when ready to go home. Medical work-up in progress. The discharge plan is to go to his sons home when medically stable.
--- NOTE | 2025-01-28 15:10 | PTCARENOTE ---
Assumed care of pt from night RN. AAOx3. Swazi is primary language, tub puller service at bedside. NSR on tele, HR 80s-90s. Received pt on CPAP/BiPAP trial but unable to tolerate mask. Transitioned back to 2L nasal cannula. SpO2 96% on 2L. Pt has
frequent episodes of tachypnea/labored breathing at rest and with exertion. Denies any chest pain. Provider aware. Consult placed to Pulmonology. One time dose of 40mg IV lasix given. Valsartan restarted at 160mg PO. Echo performed at bedside,
results pending. R radial and R femoral cath sites CDI. Assessment documented. Pt currently resting in bed with [id number] at bedside.
[2025-01-28] MEDS: LIPITOR 40 MG PO (17:43)
[2025-01-28] MEDS: LOVENOX 40 MG SC (17:45)
[2025-01-28 19:17] LABS: Magnesium 2.0 mg/dl (1.6-2.3); Potassium 4.1 mmol/L (3.5-5.1)
[2025-01-28] MEDS: COREG 6.25 MG PO (20:47)
[2025-01-29 03:08] VITALS: BP 148/88
[2025-01-29 03:33] LABS: Venous Blood Gas B.E. 3.4 mmol/L (-4 to +4); Venous Blood Gas O2 Sat % 96.9 %
[2025-01-29 03:40] LABS: Hematocrit 39.6 % (39.0-52.0); Hemoglobin 13.6 g/dL (13.0-18.0); Mean Corp Hgb Conc. 34.3 g/dL (33.0-37.0); Mean Corpuscular Volume 86.7 fL (80.0-94.0); Platelet Count 300 10^3/uL (130-400); Red Cell Dist. Width 14.5 % (11.5-14.5)
[2025-01-29 04:05] LABS: Blood Urea Nitrogen 24 mg/dl (9-20); Calcium 9.1 mg/dl (8.4-10.2); Carbon Dioxide 26 mmol/L (22-30); Chloride 102 mmol/L (98-107); Estimated Creatinine Clearance 42 ml/min; Glucose 127 mg/dl (70-99); Magnesium 2.2 mg/dl (1.6-2.3); Potassium 3.8 mmol/L (3.5-5.1); Sodium 137 mmol/L (135-145); eGFR 57.81
--- NOTE | 2025-01-29 04:47 | PTCARENOTE ---
Assumed care on pt at 1900, aaox3, primary Tongan speaking, able to make needs known and maintain an Irish conversation, language line in the room if needed. Pt denied cp or discomfort during night, nocturnal Pox set up by RT. Denies SOB at rest
on RA, Pox 90-97%, OLIVA with ambulation. SR on the monitor, HR 60-70's, BP stable. R radial and R groin sites with CDI dressing, denies pain from sites, good distal pulses. Bed alarm in place, call light within reach, POC in progress.
[2025-01-29 06:00] VITALS: BMI 24.2
--- NOTE | 2025-01-29 07:44 | W.PN.CARDCBS ---
Addendum entered and electronically signed by Mo Leavitt DO 01/29/25 09:20:
I saw and examined the patient.
The Shock Absorption Floor Layer's note was reviewed and I agree with the note.
Comment:
Plan:
Cont post NJ care
Cont DAPT
Concern for acute on chronic HF with newly diagnosed ischemic CM with EF 35%
Lasix 80 mg IV this am and 40 mg in the PM
Cont to monitor daily wts and Is and Os and cr.
Check chest xray and follow pBNP
Replete lytes as needed
Cont pulm eval and work up for potential BARTOLOME.
Cont O2 and wean as able.
Cont GDMT:
New to Coreg
Cont ARB was taking as outpt and consider change to Entresto, case management looking into
Outpt Norvasc was stopped.
Discussed with son. They have appt with Dr Carranza months from now. They would like to transition to Dr Carranza.
Original Note:
Today's Communication / Plan
-
Lasix 80 mg IV x 1 now and then 40 mg IV x 1 this afternoon for acute HFrEF
Repeat BMP in a.m.
Impression / Plan
-
PCP: Dr. Self in [place], phone number unknown, he can't find their card
Cardiology: Name unknown, he can't find their card
Impression:
Admitted with acute NJ open LAD PCI 01/27/2025
CAD
s/p acute anterior STEMI with peak troponin 326 01/27/2025
s/p 2.5 mm Red MERYL to the ostial to mid LAD, residual DIVIDING MACHINE OPERATOR RCA and ALEXEY-3 flow in the Circ and LAD at end of case 01/27/2025
ICM EF 35-40% by v-gram 01/27/25, 35% by echo 01/29/25
HTN
Hypercholesterolemia
Reported h/o valvular heart disease and evidence of MR at time of cath 01/27/25
Witnessed BARTOLOME without h/o BARTOLOME
intolerant to attempts at CPAP and BiPAP 01/27/25 into 01/28/25
Acute HFrEF
Echo 01/28/25: EF 35%, akinesis of the mid inferoseptum, apical septum and apex with hypokinesis of the mid inferior wall and severe hypokinesis of the mid anterior wall, mod eccentric MR, mild peak/mean 29/15 mmHg and mild to mod aortic
regurgitation, mild TR with PAP 58 mmHg
Plan:
-Patient came to the ER with complaints of abdominal and mid epigastric/chest discomfort and prehospital ECG suggested evolving anterior wall NJ. Patient was taken urgently to the Accounts Manager where he was found to have high-grade proximal and subtotal
occlusion of the mid LAD that was treated with PRINCIPAL ARCHITECT and 2.5 mm Red MERYL. Patient is now admitted for post NJ care.
-Patient is hypoxic and SOB on 01/21/2025, suspect acute HFrEF. Lasix 80 mg IV x 1 ordered by me and will give additional dose of Lasix 40 mg IV x 1 at 1600. Patient was not taking a diuretic prior to admission. LVEDP was 32 on 01/27/2025
-CXR 2 view ordered by me, proBNP 13,700
-EF reduced at 35% by echo 01/28/2025
-New to Coreg 3.125 mg BID
-Outpatient dose of valsartan 160 mg daily restarted 01/28/25. Could try to switch to Entresto, will ask CM to check on cost.
-Outpatient dose of amlodipine 10 mg daily is on hold
-Labs reviewed by me and Cre is 1.2. Repeat labs ordered for AM by me
-Potassium is trending down and is 3.8 on 01/21/2025, KCl 40 mEq PO x 1 now ordered by me
-Patient denies any chest pain on 01/21/2025.
-Troponin peaked at 326 and EF was down to 35 to 40% BiV gram on 01/27/2025. Echo order placed and study is pending
-Patient is tolerating aspirin 81 mg daily and Brilinta 90 mg BID, both are new medications this admission
-LDL 105 and patient is new to atorvastatin 40 mg daily
-Appreciate input from pulmonology. There is a concern for sleep disordered breathing and overnight nocturnal oximetry performed by pulmonology. Patient was intolerant of attempts at BiPAP and CPAP therapies. He will eventually need an outpatient
sleep study.
Progress Note - Outboard Motor Assembler
Subjective
Date of Service: January 29, 2025
He has orthopnea
Objective
Labs:
01/29/25 03:16
01/29/25 03:16
Labs
Hgb 13.6 g/dL (13.0-18.0) 01/29/25 03:16
Hct 39.6 % (39.0-52.0) 01/29/25 03:16
Plt Count 300 10^3/uL (130-400) 01/29/25 03:16
PT 14.5 Sec (11.4-14.6) 01/27/25 03:36
INR 1.10 01/27/25 03:36
Sodium 137 mmol/L (135-145) 01/29/25 03:16
Potassium 3.8 mmol/L (3.5-5.1) 01/29/25 03:16
BUN 24 mg/dl (9-20) H 01/29/25 03:16
Creatinine 1.2 mg/dL (0.7-1.3) 01/29/25 03:16
Glucose 127 mg/dl (70-99) H 01/29/25 03:16
Troponins
01/27/25 01/27/25 01/27/25
03:36 05:45 09:24
Troponin I 0.037 H* Cancelled 222.000 H* D
01/27/25 01/27/25 01/27/25
11:45 15:05 17:45
Troponin I Cancelled 326.000 H* D Cancelled
01/27/25
20:56
Troponin I 240.000 H* D
Vital Signs and I&O:
Vital Signs
Temp Pulse Resp BP Pulse Ox
97.8 F 88 20 148/88 98
01/29/25 03:07 01/29/25 05:15 01/29/25 03:07 01/29/25 03:08 01/29/25 05:00
Vital Signs
Temp Pulse Resp BP Pulse Ox
97.8 F 88 20 148/88 98
01/29/25 03:07 01/29/25 05:15 01/29/25 03:07 01/29/25 03:08 01/29/25 05:00
Intake & Output
01/27/25 01/28/25 01/29/25 01/30/25
06:59 06:59 06:59 06:59
Intake Total 240 / 240
Output Total 1700 / 1700 500 / 500
Balance -1700 / -1700 -260 / -260
Physical Exam
Physical Exam
GEN: NAD, AAO x 3, he is able to answer my questions and says he does not have any chest pain
LUNGS: 2 L NC. CTA B/L, no wheeze
CV: SR on telemetry. Reg, S1/S2, 04/09 syst LSB
EXT: No edema B/L LE
NEURO: Gross non-focal
SKIN: No rash
[2025-01-29 07:49] VITALS: BP 136/103
[2025-01-29] MEDS: LASIX 80 MG IV (07:49)
[2025-01-29] MEDS: DIOVAN 160 MG PO (07:52)
[2025-01-29] MEDS: LOW STRENGTH ASPIRIN 81 MG PO (07:53)
[2025-01-29] MEDS: BRILINTA 90 MG PO (07:53)
[2025-01-29] MEDS: COREG 6.25 MG PO ×2 (07:53→20:10)
[2025-01-29] MEDS: PROTONIX 40 MG PO (07:53)
[2025-01-29] MEDS: KCL 40 MEQ PO (09:03)
--- NOTE | 2025-01-29 09:39 | PTCARENOTE ---
Received pt on 2L O2 at 98%, BP and HR stable, NSR. C/O SOB, diuresed with IV Lasix and will continue later on in the day. Continue to monitor
[2025-01-29 09:58] VITALS: BP 111/72
[2025-01-29 10:44] LABS: ACT-LR - POC 342 Seconds (116-155)
[2025-01-29 10:44] LABS: ACT-LR - POC 245 Seconds (116-155)
[2025-01-29 10:44] LABS: ACT-LR - POC 205 Seconds (116-155)
[2025-01-29 11:29] VITALS: BP 124/84
[2025-01-29 13:14] VITALS: BP 136/81
[2025-01-29] MEDS: LASIX 40 MG IV (13:48)
--- NOTE | 2025-01-29 13:53 | PTCARENOTE ---
Pt c/o of being short of breath again and feeling like he can't catch his breath, placed back to bed on 2L for comfort. c/o of being sob again and feeling like he can't catch his breath, i put him back in bed on 2L for comfort. Vitals stable-
136/81, HR59, 98%. Per HARINDER Dyer ok to give 16:00 dose of 40mg IV lasix now
--- NOTE | 2025-01-29 14:42 | W.PN.PUL3 ---
Today's Communication / Plan
-
- Initiate nighttime supplemental oxygen 2 L/min when sleeping
- Outpatient follow-up with [facility] pulmonary clinic for in-lab sleep study
Assessment
-
Patient is an 89-year-old female who presented to the hospital on 01/27 with abdominal and lower chest discomfort. EKG was concerning for ST elevation DE and patient was taken to [facility]. Patient had successful stenting of ostial to mid LAD and
has been on dual antiplatelet therapy. Reportedly patient had witnessed apneic episodes and was empirically started on CPAP and subsequently BiPAP with poor tolerance overnight. Pulmonary consultation was requested to comment further on suspected
sleep disordered breathing.
#1. Concern for sleep disordered breathing
- Patient at risk of both obstructive and central sleep apnea with underlying CHF. BMI 25.6, will need additional testing to establish diagnosis.
- BMP reviewed without elevated bicarb, no s/s of encephalopathy, not suggestive of hypercapnia. VBG 7.48/36, without any CO2 retention.
- Empiric trial of CPAP and BiPAP attempted with poor tolerance. Hold off additional PAP therapy pending outpatient PSG.
- Outpatient follow-up with [facility] pulmonary clinic.
- Suspect currently elevated left ventricular end-diastolic pressure and acute DE with volume overload contributing to his symptoms as well. Agree with continued diuresis
- Patient's episode of dyspnea do not appear to be suggestive of sleep disordered breathing, more likely related to congestive heart failure/pulmonary edema.
- 01/29, overnight oximetry study reviewed, patient spent 17 minutes below saturation of 88% and only few seconds below 85%. Total time below 89% was 32 minutes. Start nocturnal supplemental oxygen 2 L/min when sleeping. Patient's volume overload
also confounding interpretation of overnight oximetry study. Patient will need outpatient sleep study and lab for further analysis.
Other medical diagnoses:
- Acute DE, s/p PCI LAD 01/27/2025
- HTN and HLD
- Mitral regurgitation
- Ischemic cardiomyopathy, LVEF 35% per ventriculography
Total time spent on this consultation/encounter _68___ minutes which includes review of history, physical exam, medications, laboratory data, personal review of imaging, extensive review of outpatient records, discussion with care team and
respiratory therapy.
Data:
CXR 01/2025: Mildly widened appearance of the mediastinum which could be secondary to aortic uncoiling versus ascending thoracic aortic aneurysm.
Increased density along the medial right lung base which may be artifact with underlying airspace disease not excluded. No pleural effusions or pneumothorax.
Questionable groundglass disease within the left midlung.
[facility] 01/2025: 1. Left heart catheterization with coronary and single-plane left ventriculography
2. Successful stenting of ostial to mid LAD with a 2.5 x 38 mm Red stent that was implanted at nominal pressures and postdilated with a 2.5 mm noncompliant balloon
- LVEDP 32
Subjective Data
-
Date of Service:
Date of Service: January 29, 2025
Subjective:
Patient comfortably lying in bed, on room air, no acute distress.
Review of Systems
Genitourinary: Other (All 14 systems reviewed and negative except as stated above in the history of present illness.)
Objective Data
Data Reviewed
Vital Signs / I&O / Oxygen:
Vital Signs
Temp Pulse Resp BP Pulse Ox
97.8 F 64 20 136/81 99
01/29/25 03:07 01/29/25 13:48 01/29/25 03:07 01/29/25 13:48 01/29/25 13:15
Intake and Output
01/28/25 01/29/25 01/30/25
06:59 06:59 06:59
Intake Total 240 / 240 360 / 360
Output Total 1700 / 1700 500 / 500 1100 / 1100
Balance -1700 / -1700 -260 / -260 -740 / -740
SaO2 99
Nasal Cannula flow liters per 2
minute
Physical Exam
General: Comfortable
HEENT: Normocephalic
Cardiovascular: S1-S2
Respiratory: Crackles (Few inspiratory bibasilar Rales)
GI: Soft and Non Distended
Neurology: Awake and Alert
Skin: Warm
Labs/Micro/Reports
Lab Data
01/29/25 03:16
01/29/25 03:16
--- NOTE | 2025-01-29 14:59 | CM ---
Reviewed chart. Met with Mr. Zenobia kumarulices discharge plans. He states he is feeling the same. Prior to admission he resides alone in a three story home. Prior to admission he was independent with ambulation and adls. He does not have any DME
in the home. He states he has a cleaning lady who comes in to clean. He has a prescription plan. Telephone call to [facility] to check on co-pay for Brilinta 90 mg po bid. His co-pay would be zero. Telephone call to [facility] to check for co-pay for
Entresto and Farxiga. [facility] states Entresto is not in formulary and his Farxiga is free. Telephone call to [facility] to see if they have Brilinta 90 mg po bid in stock. They do not have it in stock. Telephone call to [facility] at [address] does have it stock. His He states he is planning on staying with his son for awhile when ready to go home. Medical work-up in progress. The discharge plan is to go to his sons home when medically stable.
--- NOTE | 2025-01-29 16:53 | W.PN.UPDATE ---
Update Note
Progress Note Update
CXR 2 view reviewed by me and there is no evidence of pleural effusion and overall pulmonary vascularity was reported to be within the limits of normal. Patient is having symptomatic improvement with attempts at IV diuresis. Dyspnea could be due
to Brilinta, will switch to Plavix. Brilinta on hold starting now and then Plavix 600 mg x 1 Tuesday morning followed by 75 mg daily thereafter.
[2025-01-29] MEDS: LOVENOX 40 MG SC (17:27)
[2025-01-29] MEDS: LIPITOR 40 MG PO (17:28)
[2025-01-29 22:19] VITALS: BP 123/84
--- NOTE | 2025-01-29 22:42 | PTCARENOTE ---
Received pt at change of shift, aaox3, visiting with family with no c/o cp or SOB. SR on tele monitor, HR 60-70's, bp stable. Pox 95% RA, lungs diminished throughout, L lung base with fine crackles on auscultation. R radial and r groin dsg CDI.
Updated son and pt on POC, call rich within reach.
[2025-01-30] VITALS (8 sets, daily range): BP systolic 104–133; BP diastolic 67–97; BMI 24.0
[2025-01-30 03:46] LABS: Blood Urea Nitrogen 31 mg/dl (9-20); Calcium 8.7 mg/dl (8.4-10.2); Carbon Dioxide 28 mmol/L (22-30); Chloride 101 mmol/L (98-107); Estimated Creatinine Clearance 39 ml/min; Glucose 115 mg/dl (70-99); Potassium 3.4 mmol/L (3.5-5.1); Sodium 137 mmol/L (135-145); eGFR 52.51
[2025-01-30] MEDS: KCL 40 MEQ PO ×2 (04:18→10:20)
--- NOTE | 2025-01-30 04:34 | PTCARENOTE ---
Addendum entered by Shira Glass RN 01/30/25 06:36:
Pt with increased SOB this morning, blasting contract miner card made aware and 40mg IV lasix ordered and given. Pt also appearing very anxious, 'afraid to fall asleep', 1:1 time spent with pt, + effect.
Original Note:
Pt restless during night, removing O2 tubing and tele leads frequently. Remains OLIVA, Pox 93-95% RA and 100% on 2L. K 3.4 with morning labs, blasting contract miner CT PA made aware and new order for 40mEq K administered.
[2025-01-30] MEDS: LASIX 40 MG IV ×3 (06:23→17:16)
[2025-01-30] MEDS: PLAVIX 600 MG PO (08:25)
[2025-01-30] MEDS: LOW STRENGTH ASPIRIN 81 MG PO (08:25)
[2025-01-30] MEDS: PROTONIX 40 MG PO (08:25)
[2025-01-30] MEDS: COREG 6.25 MG PO ×2 (08:25→20:08)
[2025-01-30] MEDS: DIOVAN 160 MG PO (08:25)
--- NOTE | 2025-01-30 10:25 | W.PN.CARDCBS ---
Addendum entered and electronically signed by Mo Leavitt DO 01/30/25 14:25:
I saw and examined the patient.
The Instrumentation Tech's note was reviewed and I agree with the note.
Comment:
Plan:
His dyspnea is likely multifactorial including HF, and possibly from Brilinta as well as some anxiety.
Cont Lasix 80 mg in AM and 40 mg IV in PM
Wt coming down.
Will stop Brilinta and reload with Plavix and then cont with Plavix
Monitor daily wts, Is and Os and cr
Cont DAPT
New to statin, LDL goal is <70
Cont GDMT with Coreg and ARB
Son update last 24 hrs.
Original Note:
Today's Communication / Plan
-
Suspect multifactorial SOB including acute HF and possibly a side effect of his Brilinta
Continue Lasix 80 mg IV a.m. and 40 mg IV p.m. daily
Brilinta changed to Plavix starting today
Impression / Plan
-
PCP: Dr. Self in [place], phone number unknown, he can't find their card
Cardiology: Name unknown, he can't find their card
Impression:
Admitted with acute NC open LAD PCI 01/27/2025
CAD
s/p acute anterior STEMI with peak troponin 326 01/27/2025
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
ICM EF 35-40% by v-gram 01/27/25, 35% by echo 01/29/25
HTN
Hypercholesterolemia
Reported h/o valvular heart disease and evidence of MR at time of cath 01/27/25
Witnessed BARTOLOME without h/o BARTOLOME
intolerant to attempts at CPAP and BiPAP 01/27/25 into 01/28/25
Acute HFrEF
Echo 01/28/25: EF 35%, akinesis of the mid inferoseptum, apical septum and apex with hypokinesis of the mid inferior wall and severe hypokinesis of the mid anterior wall, mod eccentric MR, mild peak/mean 29/15 mmHg and mild to mod aortic
regurgitation, mild TR with PAP 58 mmHg
Plan:
-Patient came to the ER with complaints of abdominal and mid epigastric/chest discomfort and prehospital ECG suggested evolving anterior wall NC. Patient was taken urgently to the [facility] where he was found to have high-grade proximal and subtotal
occlusion of the mid LAD that was treated with ACTIVITIES VOLUNTEER and 2.5 mm [place] MERYL. Patient is now admitted for post NC care.
-Weight is down at least 4 lbs with Lasix 80 mg IV AM and 40 mg IV PM diuresis. Patient was not taking a diuretic prior to admission.
-CXR report from 01/29/2025 reviewed by me and pulmonary vascularity is within normal limits.
-EF reduced at 35% by echo 01/28/2025
-New to Coreg this admission and dose increased to 6.25 mg BID 01/28/2025
-Outpatient dose of valsartan 160 mg daily restarted 01/28/25. Appreciate the help of case management on checking the cost of Entresto, it is not available at all with his prescription plan through his insurance, it is not an issue of a prior
authorization but rather it is not even offered through his insurance.
-Outpatient dose of amlodipine 10 mg daily is on hold
-Labs reviewed by me and Cre is 1. 3 on 01/30/2025. Repeat labs ordered for AM by me
-Potassium is trending down and is 3.4 on 01/30/2025, additional KCl 40 mEq PO x 1 now ordered by me. Magnesium was 2.2 on 01/29/2025
-Patient denies any chest pain on 01/21/2025.
-Troponin peaked at 326 and EF was down to 35 to 40% BiV gram on 01/27/2025. Echo order placed and study is pending
-Patient is tolerating aspirin 81 mg daily, but concerned that Brilinta may be contributing to some of his episodes of SOB. Last dose of Brilinta was 01/29/2025 AM and patient was then loaded with Plavix 600 mg x 1 on 01/30/2025 AM and then Plavix
75 mg daily thereafter, all orders placed by me.
-LDL 105 and patient is new to atorvastatin 40 mg daily
-Pulmonology is also following and there is a suspicion for sleep disordered breathing. Patient was previously intolerant to attempts at BiPAP and CPAP therapies and there was an attempt at oxygen via NC on the night of 01/29/2025, the patient
pulled this off frequently. He will eventually need an outpatient sleep study.
Progress Note - Supervisor Prep
Subjective
Date of Service: January 30, 2025
He was very out of breath early this morning
Objective
Labs:
01/29/25 03:16
01/30/25 02:52
Labs
Hgb 13.6 g/dL (13.0-18.0) 01/29/25 03:16
Hct 39.6 % (39.0-52.0) 01/29/25 03:16
Plt Count 300 10^3/uL (130-400) 01/29/25 03:16
PT 14.5 Sec (11.4-14.6) 01/27/25 03:36
INR 1.10 01/27/25 03:36
Sodium 137 mmol/L (135-145) 01/30/25 02:52
Potassium 3.4 mmol/L (3.5-5.1) L 01/30/25 02:52
BUN 31 mg/dl (9-20) H 01/30/25 02:52
Creatinine 1.3 mg/dL (0.7-1.3) 01/30/25 02:52
Glucose 115 mg/dl (70-99) H 01/30/25 02:52
Troponins
01/27/25 01/27/25 01/27/25
09:24 15:05 20:56
Troponin I 222.000 H* D 326.000 H* D 240.000 H* D
Vital Signs and I&O:
Vital Signs
Temp Pulse Resp BP Pulse Ox
98.1 F 64 20 133/76 99
01/30/25 07:40 01/30/25 07:35 01/30/25 07:40 01/30/25 07:35 01/30/25 07:40
Vital Signs
Temp Pulse Resp BP Pulse Ox
98.1 F 64 20 133/76 99
01/30/25 07:40 01/30/25 07:35 01/30/25 07:40 01/30/25 07:35 01/30/25 07:40
Intake & Output
01/28/25 01/29/25 01/30/25 01/31/25
06:59 06:59 06:59 06:59
Intake Total 240 / 240 600 / 600
Output Total 1700 / 1700 500 / 500 2275 / 2275 175 / 175
Balance -1700 / -1700 -260 / -260 -1675 / -1675 -175 / -175
Physical Exam
Physical Exam
GEN: NAD, AAO x 3
LUNGS: 2 L NC. CTA B/L, no wheeze
CV: SR on telemetry. Reg, S1/S2, 04/09 syst LSB
EXT: No edema B/L LE
NEURO: Gross non-focal
SKIN: No rash
--- NOTE | 2025-01-30 14:49 | CM ---
Reviewed chart. Met with Mr. Fregoso to review discharge plans. He states he is feeling a little better. Prior to admission he resides alone in a three story home. Prior to admission he was independent with ambulation and adls. He does not have
any DME in the home. He states he has a cleaning lady who comes in to clean. He has a prescription plan. Telephone call to [facility] to check on co-pay for Brilinta 90 mg po bid. His co-pay would be zero. Telephone call to [facility] to check for co-pay
for Entresto and Farxiga. [facility] states Entresto is not in formulary and his Farxiga is free . He states he is planning on staying with his son for awhile when ready to go home. Medical work-up in progress. The discharge plan is to go to his sons
home when medically stable.
--- NOTE | 2025-01-30 15:11 | W.PN.PUL3 ---
Today's Communication / Plan
-
- Continue nocturnal supplemental O2
- Out patient follow up with [facility] Pulmonary clinic for PSG. Will need in-lab sleep study
- Pulmonary team will sign off, please call as needed.
Assessment
-
Patient is an 89-year-old female who presented to the hospital on 01/27 with abdominal and lower chest discomfort. EKG was concerning for ST elevation TX and patient was taken to [facility]. Patient had successful stenting of ostial to mid LAD and
has been on dual antiplatelet therapy. Reportedly patient had witnessed apneic episodes and was empirically started on CPAP and subsequently BiPAP with poor tolerance overnight. Pulmonary consultation was requested to comment further on suspected
sleep disordered breathing.
#1. Concern for sleep disordered breathing
- Patient at risk of both obstructive and central sleep apnea with underlying CHF. BMI 25.6, will need additional testing to establish diagnosis.
- BMP reviewed without elevated bicarb, no s/s of encephalopathy, not suggestive of hypercapnia. VBG 7.48/36, without any CO2 retention.
- Empiric trial of CPAP and BiPAP attempted with poor tolerance. Hold off additional PAP therapy pending outpatient PSG.
- Outpatient follow-up with [facility] pulmonary clinic.
- Suspect currently elevated left ventricular end-diastolic pressure and acute TX with volume overload contributing to his symptoms as well. Agree with continued diuresis
- Patient's episode of dyspnea do not appear to be suggestive of sleep disordered breathing, more likely related to congestive heart failure/pulmonary edema.
- 01/29, overnight oximetry study reviewed, patient spent 17 minutes below saturation of 88% and only few seconds below 85%. Total time below 89% was 32 minutes. Started nocturnal supplemental oxygen 2 L/min when sleeping. Patient's volume
overload also confounding interpretation of overnight oximetry study. Patient will need outpatient sleep study and lab for further analysis.
- Tolerating nocturnal O2 well. Diuresis per cardiology service.
Other medical diagnoses:
- Acute TX, s/p PCI LAD 01/27/2025
- HTN and HLD
- Mitral regurgitation
- Ischemic cardiomyopathy, LVEF 35% per ventriculography
Total time spent on this consultation/encounter _38___ minutes which includes review of history, physical exam, medications, laboratory data, personal review of imaging, extensive review of outpatient records, discussion with care team and
respiratory therapy.
Data:
CXR 01/2025: Mildly widened appearance of the mediastinum which could be secondary to aortic uncoiling versus ascending thoracic aortic aneurysm.
Increased density along the medial right lung base which may be artifact with underlying airspace disease not excluded. No pleural effusions or pneumothorax.
Questionable groundglass disease within the left midlung.
[facility] 01/2025: 1. Left heart catheterization with coronary and single-plane left ventriculography
2. Successful stenting of ostial to mid LAD with a 2.5 x 38 mm Red stent that was implanted at nominal pressures and postdilated with a 2.5 mm noncompliant balloon
- LVEDP 32
Subjective Data
-
Date of Service:
Date of Service: January 30, 2025
Subjective:
Comfortably sitting in bed in no acute distress.
Review of Systems
Genitourinary: Other (Reports feeling tired otherwise unremarkable)
Objective Data
Data Reviewed
Vital Signs / I&O / Oxygen:
Vital Signs
Temp Pulse Resp BP Pulse Ox
97.9 F 56 17 117/75 94
01/30/25 11:18 01/30/25 11:19 01/30/25 11:18 01/30/25 11:19 01/30/25 11:18
Intake and Output
01/29/25 01/30/25 01/31/25
06:59 06:59 06:59
Intake Total 240 / 240 600 / 600
Output Total 500 / 500 2275 / 2275 175 / 175
Balance -260 / -260 -1675 / -1675 -175 / -175
SaO2 94
Nasal Cannula flow liters per 2
minute
Physical Exam
General: Comfortable
HEENT: Normocephalic
Cardiovascular: S1-S2
Respiratory: Crackles (Few inspiratory bibasilar Rales, improving)
GI: Soft and Non Distended
Neurology: Awake and Alert
Skin: Warm
Labs/Micro/Reports
Lab Data
01/29/25 03:16
01/30/25 02:52
[2025-01-30] MEDS: LOVENOX 40 MG SC (17:16)
[2025-01-30] MEDS: LIPITOR 40 MG PO (17:16)
--- NOTE | 2025-01-30 23:44 | PTCARENOTE ---
Tele remains SB-SR, HR 50-60's at rest. Pt denies any pain. Sating 98% 2L. Lungs clear throughout. Patient occasionally removes O2, and sats 95% RA. questionable SOB vs anxious at times. Right radial and right groin site CAM. + pulses throughout.
Patient voiding yellow urine, output monitored. Call rich in reach.
[2025-01-31] VITALS (8 sets, daily range): BP systolic 106–142; BP diastolic 59–86; BMI 23.8
[2025-01-31 03:40] LABS: Hematocrit 39.1 % (39.0-52.0); Hemoglobin 12.7 g/dL (13.0-18.0); Mean Corp Hgb Conc. 32.5 g/dL (33.0-37.0); Mean Corpuscular Volume 91.4 fL (80.0-94.0); Platelet Count 278 10^3/uL (130-400); Red Cell Dist. Width 14.9 % (11.5-14.5)
[2025-01-31 04:05] LABS: Blood Urea Nitrogen 35 mg/dl (9-20); Calcium 8.7 mg/dl (8.4-10.2); Carbon Dioxide 27 mmol/L (22-30); Chloride 102 mmol/L (98-107); Estimated Creatinine Clearance 29 ml/min; Glucose 108 mg/dl (70-99); Potassium 3.9 mmol/L (3.5-5.1); Sodium 136 mmol/L (135-145); eGFR 38.06
[2025-01-31] MEDS: LOW STRENGTH ASPIRIN 81 MG PO (08:25)
[2025-01-31] MEDS: PLAVIX 75 MG PO (08:25)
[2025-01-31] MEDS: COREG 6.25 MG PO ×2 (08:25→19:39)
[2025-01-31] MEDS: PROTONIX 40 MG PO (08:25)
[2025-01-31] MEDS: DIOVAN 160 MG PO (08:27)
[2025-01-31] MEDS: ATIVAN 0.5 MG PO ×2 (12:15→23:33)
--- NOTE | 2025-01-31 14:51 | W.PN.CARDCBS ---
Today's Communication / Plan
-
Recheck follow-up echocardiogram given fatigue
I discussed with the patient at great length fatigue following myocardial infarction and decline in ejection fraction.
Cardiac rehab consulted
Guideline directed medical therapy for heart failure with reduced ejection fraction as tolerates
Hold Lasix and follow creatinine
Impression / Plan
-
PCP: Dr. Self in [place], phone number unknown, he can't find their card
Cardiology: Name unknown, he can't find their card
Impression:
Admitted with acute DC open LAD PCI 01/27/2025
CAD
s/p acute anterior STEMI with peak troponin 326 01/27/2025
s/p 2.5 mm [place] MERYL to the ostial to mid LAD, residual MUSHROOM CUTTER RCA and ALEXEY-3 flow in the Circ and LAD at end of case 01/27/2025
ICM EF 35-40% by v-gram 01/27/25, 35% by echo 01/29/25
HTN
Hypercholesterolemia
Reported h/o valvular heart disease and evidence of MR at time of cath 01/27/25
Witnessed BARTOLOME without h/o BARTOLOME
intolerant to attempts at CPAP and BiPAP 01/27/25 into 01/28/25
Acute HFrEF
Echo 01/28/25: EF 35%, akinesis of the mid inferoseptum, apical septum and apex with hypokinesis of the mid inferior wall and severe hypokinesis of the mid anterior wall, mod eccentric MR, mild peak/mean 29/15 mmHg and mild to mod aortic
regurgitation, mild TR with PAP 58 mmHg
Plan:
He feels tired and weak at times. He has had no chest pain and no significant shortness of breath. He feels he should be progressing quicker. EKG and monitor is without change.
-Patient came to the ER with complaints of abdominal and mid epigastric/chest discomfort and prehospital ECG suggested evolving anterior wall DC. Patient was taken urgently to the [facility] where he was found to have high-grade proximal and subtotal
occlusion of the mid LAD that was treated with PUBLIC HEALTH OFFICER and 2.5 mm Red MERYL. Continue current post DC treatment.
Continue dual antiplatelet therapy
Continue risk factor modification and lipid-lowering
He does exercise as an outpatient. Cardiac rehab has been consulted.
Troponin peaked at 326
-He has heart failure with reduced ejection fraction. Currently guideline directed medical treatment is limited given renal insufficiency.
He is on valsartan (Entresto is not available on his plan). He is on carvedilol both of which we will continue. Could consider Aldactone pending upcoming renal function.
Follow labs
He is likely nearing euvolemic status caution with diuretics given recent decline in ejection fraction and contrast in the setting of advanced age.
Hold diuretic for now and continue to follow.
EF reduced at 35% by echo 01/28/2025
Given fatigue and weakness will reassess follow-up echocardiogram
Would reassess at echocardiogram at the 3-month izzy
Patient is tolerating aspirin 81 mg daily, previously concerned that Brilinta may be contributing to some of his episodes of SOB. Last dose of Brilinta was 01/29/2025 AM and patient was then loaded with Plavix 600 mg x 1 on 01/30/2025 AM and then
Plavix 75 mg daily .
-Now with renal insufficiency continue to follow
-Pulmonology is also following and there is a suspicion for sleep disordered breathing. Patient was previously intolerant to attempts at BiPAP and CPAP therapies and there was an attempt at oxygen via NC on the night of 01/29/2025, the patient
pulled this off frequently.
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
Subjective
Date of Service: January 31, 2025
He feels tired and fatigued but no chest pain.
Objective
Labs:
01/31/25 03:04
01/31/25 03:04
Labs
Hgb 12.7 g/dL (13.0-18.0) L 01/31/25 03:04
Hct 39.1 % (39.0-52.0) 01/31/25 03:04
Plt Count 278 10^3/uL (130-400) 01/31/25 03:04
PT 14.5 Sec (11.4-14.6) 01/27/25 03:36
INR 1.10 01/27/25 03:36
Sodium 136 mmol/L (135-145) 01/31/25 03:04
Potassium 3.9 mmol/L (3.5-5.1) 01/31/25 03:04
BUN 35 mg/dl (9-20) H 01/31/25 03:04
Creatinine 1.7 mg/dL (0.7-1.3) H 01/31/25 03:04
Glucose 108 mg/dl (70-99) H 01/31/25 03:04
Vital Signs and I&O:
Vital Signs
Temp Pulse Resp BP Pulse Ox
98.6 F 52 22 109/68 98
01/31/25 11:10 01/31/25 11:23 01/31/25 11:10 01/31/25 11:23 01/31/25 11:23
Vital Signs
Temp Pulse Resp BP Pulse Ox
98.6 F 52 22 109/68 98
01/31/25 11:10 01/31/25 11:23 01/31/25 11:10 01/31/25 11:23 01/31/25 11:23
Intake & Output
01/29/25 01/30/25 01/31/25 02/01/25
06:59 06:59 06:59 06:59
Intake Total 240 / 240 600 / 600 120 / 120
Output Total 500 / 500 2275 / 2275 700 / 700
Balance -260 / -260 -1675 / -1675 -580 / -580
Physical Exam
Physical Exam
General: Well developed, well nourished in NAD.
Heart: Non displaced PMI, RRR, no murmurs, No S3, S4, no rubs.
Abdomen: Normal bowel sounds, soft, non-tender, non-distended.
Extremities: No clubbing, cyanosis or edema bilaterally.
Neuro: Grossly nonfocal, awake, alert
--- NOTE | 2025-01-31 15:54 | CM ---
Reviewed chart. Prior to admission he resides alone in a three story home. Prior to admission he was independent with ambulation and adls. He does not have any DME in the home. He states he has a cleaning lady who comes in to clean. He has a
prescription plan. Telephone call to [facility] to check on co-pay for Brilinta 90 mg po bid. His co-pay would be zero. Telephone call to [facility] to check for co-pay for Entresto and Farxiga. [facility] states Entresto is not in formulary and his Farxiga is free
. He states he is planning on staying with his son for awhile when ready to go home.Will need to see his current functional level to see if he will have any skilled care needs. Medical work-up in progress. The discharge plan is to go to his sons
home when medically stable.
--- NOTE | 2025-01-31 17:00 | PTCARENOTE ---
Pt received this am with no c/o of any chest pain or sob. Room air sat 97%. SR, rate in the 60's to 70's. Assisted oob to the BR and the chair. Pt later called and stated he didn't feel good but denied any pain, nausea, sob or lightheadedness. Pt's
son verified that pt couldn't pinpoint any specific symptoms. Pt called again with same c/o. Ecg done with no changes. Ecg reviewed by Dr. Tere Lombardi who then went to see the pt. Pt ambulated in the peng with the nurse. Denies any c/o of not
feeling well.
[2025-01-31] MEDS: LIPITOR 40 MG PO (17:57)
[2025-01-31] MEDS: LOVENOX 40 MG SC (17:57)
[2025-02-01] VITALS (8 sets, daily range): BP systolic 107–162; BP diastolic 57–93; PULSE 61; O2SAT 97; BMI 24.2
--- NOTE | 2025-02-01 00:46 | PTCARENOTE ---
Tele remains SB-SR w/ occasional PACs. Denies pain. Pulse ox 95 % RA. Applied 2L of O2 for comfort, sating 98%. Lungs clear throughout. Voiding yellow urine. Call rich in reach.
[2025-02-01 03:53] LABS: Blood Urea Nitrogen 34 mg/dl (9-20); Calcium 8.6 mg/dl (8.4-10.2); Carbon Dioxide 30 mmol/L (22-30); Chloride 101 mmol/L (98-107); Estimated Creatinine Clearance 33 ml/min; Glucose 114 mg/dl (70-99); Potassium 4.0 mmol/L (3.5-5.1); Sodium 134 mmol/L (135-145); eGFR 44.23
[2025-02-01] MEDS: COREG 6.25 MG PO ×2 (09:06→19:30)
[2025-02-01] MEDS: PLAVIX 75 MG PO (09:06)
[2025-02-01] MEDS: PROTONIX 40 MG PO (09:07)
[2025-02-01] MEDS: DIOVAN 160 MG PO (09:07)
[2025-02-01] MEDS: LOW STRENGTH ASPIRIN 81 MG PO (09:10)
--- NOTE | 2025-02-01 09:45 | W.PN.CARDCBS ---
Addendum entered and electronically signed by LORI Cardenas 02/01/25 15:59:
pt w/ REEMA on CKD Stage 1
Addendum entered and electronically signed by Tere Lombardi MD 02/01/25 10:57:
I saw and examined the patient.
The Tool/Die Maker's note was reviewed and I agree with the note.
Comment:
He has no complaints today. Exam is stable. No chest pain overnight. Rhythm stable on the monitor. Fatigue is somewhat improved. He is looking forward to increasing ambulation.
He has coronary disease and presented with high-grade proximal LAD stenosis and large myocardial infarction. He underwent stent as noted.
Continue dual antiplatelet therapy
Continue risk factor modification
Cardiac rehab/physical therapy have been consulted
Follow telemetry
He is getting closer to discharge with great family support. Await PT/cardiac rehab assessment on ambulation.
He has heart failure with newly reduced ejection fraction with ischemic cardiomyopathy.
Reassess echocardiogram at the 3-month izzy.
Continue valsartan (Entresto was not available on his plan). Continue carvedilol. Consider Aldactone awaiting improvement of renal function. Once renal function has improved also consider SGLT2 inhibitor.
Volume status appears euvolemic. May eventually need some diuretic but currently on hold. Renal function continues to improve. Follow. Will need outpatient labs.
Once he is able to ambulate at home safely he is stable for discharge with continuing evaluation and guideline directed medical therapy and close follow-up.
Original Note:
Today's Communication / Plan
-
-PT eval today
-BMP 1 week after discharge to f/u REEMA on CKD
Impression / Plan
-
PCP: Dr. Self in [place], phone number unknown, he can't find their card
Cardiology: Name unknown, he can't find their card
Impression:
Admitted with acute VA open LAD PCI 01/27/2025
CAD
s/p acute anterior STEMI with peak troponin 326 01/27/2025
s/p 2.5 mm Red MERYL to the ostial to mid LAD, residual SLICING MACHINE FEEDER RCA and ALEXEY-3 flow in the Circ and LAD at end of case 01/27/2025
ICM EF 35-40% by v-gram 01/27/25, 35% by echo 01/29/25
HTN
Hypercholesterolemia
Reported h/o valvular heart disease and evidence of MR at time of cath 01/27/25
Witnessed BARTOLOME without h/o BARTOLOME
intolerant to attempts at CPAP and BiPAP 01/27/25 into 01/28/25
Acute HFrEF
Echo 01/28/25: EF 35%, akinesis of the mid inferoseptum, apical septum and apex with hypokinesis of the mid inferior wall and severe hypokinesis of the mid anterior wall, mod eccentric MR, mild peak/mean 29/15 mmHg and mild to mod aortic
regurgitation, mild TR with PAP 58 mmHg
Plan:
He is feeling well, no chest pain and no significant shortness of breath, still fatigued. He feels he should be progressing quicker. Lives with son and daughter in law. EKG and monitor is without change.
-Patient came to the ER with complaints of abdominal and mid epigastric/chest discomfort and prehospital ECG suggested evolving anterior wall VA. Patient was taken urgently to the [facility] where he was found to have high-grade proximal and subtotal
occlusion of the mid LAD that was treated with ACCOUNTANT BUDGET and 2.5 mm Red MERYL. Continue current post VA treatment.
Continue dual antiplatelet therapy
Continue risk factor modification and lipid-lowering
new to statin, LDL goal <55
He does exercise as an outpatient. Cardiac rehab has been consulted.
Troponin peaked at 326
no CP/SOB
telem reviewed: SR 62-68 bpm, rare PVC
-He has heart failure with reduced ejection fraction. Currently guideline directed medical treatment is limited given renal insufficiency.
He is on valsartan 160 mg daily (Entresto is not available on his plan) and carvedilol 6.25 mg bid , both of which we will continue. Could consider Aldactone pending upcoming renal function.
Follow labs. Creat on admit 1.1, increased 1.7 01/31, today 1.5.
He is likely nearing euvolemic status, wt down 3 lbs since admission. Caution with diuretics given recent decline in ejection fraction and contrast in the setting of advanced age.
Hold diuretic for now and continue to follow.
EF reduced at 35% by echo 01/28/2025, given complaints of fatigue and weakness echo repeated 01/31/2025 and was stable EF 35%
Would reassess at echocardiogram at the 3-month izzy
Patient is tolerating aspirin 81 mg daily, previously concerned that Brilinta may be contributing to some of his episodes of SOB. Last dose of Brilinta was 01/29/2025 AM and patient was then loaded with Plavix 600 mg x 1 on 01/30/2025 AM and then
Plavix 75 mg daily.
see PT today. Consider d/c today. Lives at home with son and daughter in law. Would need to do flight of steps to get to bedroom
Cardiology f/u arranged at [facility] 02/19/2025
-Now with renal insufficiency, improving to 1.5 today, continue to follow and repeat BMP 1 week after discharge
-Pulmonology is also following and there is a suspicion for sleep disordered breathing. Patient was previously intolerant to attempts at BiPAP and CPAP therapies and there was an attempt at oxygen via NC on the night of 01/29/2025, the patient
pulled this off frequently.
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
Subjective
Date of Service: February 01, 2025
-no CP/SOB
Objective
Labs:
01/31/25 03:04
02/01/25 03:13
Labs
Hgb 12.7 g/dL (13.0-18.0) L 01/31/25 03:04
Hct 39.1 % (39.0-52.0) 01/31/25 03:04
Plt Count 278 10^3/uL (130-400) 01/31/25 03:04
PT 14.5 Sec (11.4-14.6) 01/27/25 03:36
INR 1.10 01/27/25 03:36
Sodium 134 mmol/L (135-145) L 02/01/25 03:13
Potassium 4.0 mmol/L (3.5-5.1) 02/01/25 03:13
BUN 34 mg/dl (9-20) H 02/01/25 03:13
Creatinine 1.5 mg/dL (0.7-1.3) H 02/01/25 03:13
Glucose 114 mg/dl (70-99) H 02/01/25 03:13
Vital Signs and I&O:
Vital Signs
Temp Pulse Resp BP Pulse Ox
98.4 F 52 16 139/76 98
02/01/25 07:23 02/01/25 05:00 02/01/25 07:23 02/01/25 03:07 02/01/25 08:00
Vital Signs
Temp Pulse Resp BP Pulse Ox
98.4 F 52 16 139/76 98
02/01/25 07:23 02/01/25 05:00 02/01/25 07:23 02/01/25 03:07 02/01/25 08:00
Intake & Output
01/30/25 01/31/25 02/01/25 02/02/25
06:59 06:59 06:59 06:59
Intake Total 600 / 600 120 / 120
Output Total 2275 / 2275 700 / 700 250 / 250 200 / 200
Balance -1675 / -1675 -580 / -580 -250 / -250 -200 / -200
Physical Exam
Physical Exam
GEN: No distress, awake, Ox3
HEENT: supple, anicteric, mmm
LUNGS: CTA, no wheezes/rales
CV: Reg, S1/S2, no murmur
ABD: soft, BS+, NT/ND
EXT: No edema
NEURO: Gross non-focal
SKIN: No rash
--- NOTE | 2025-02-01 12:55 | PN.CDI ---
CDI
- -
CDI:
Physician Documentation Request
Admit Date: 01/27/25 06:33
Dear Cardiology,
Clinical Indicators:
Patient admitted with STEMI.
01/27 - 01/30 IV Lasix given for acute HFrEF.
02/01 PN, 'BMP 1 week after discharge to f/u REEMA on CKD...Now with renal insufficiency, improving to 1.5 today...'
Cr/GFR trend:
01/27/25 01/28/25 01/29/25
03:36 03:24 03:16
Creatinine 1.1 1.0 1.2
eGFR > 60.00 > 60.00 57.81
01/30/25 01/31/25 02/01/25
02:52 03:04 03:13
Creatinine 1.3 1.7 H 1.5 H
eGFR 52.51 38.06 44.23
Due to potentially conflicting documentation, please clarify which of the following accurately represents the patient's renal status:
REEMA on CKD (please specify stage)
Renal insufficiency only
Other, please specify
Criteria for REEMA*
1 Increase in serum creatinine by > or = to 0.3 mg/dL (> or = to 26.5 micromol/L) within 48 hours, OR
2 Increase in serum creatinine to > or = to 1.5 times baseline, which is known or presumed to have occurred within 7 days, OR
3 Urine volume < 0.5 nL/kg/hour for six hours
Stages of Chronic Kidney Disease*
Level Description GFR
G1 Normal or High >90
G2 Mildly decreased 60-89
G3a Mildly to moderately decreased 45-59
G3b Moderately to severely decreased 30-44
G4 Severely decreased 15-29
G5 Kidney failure <15
Use of terms such as suspected, likely, concern for, or probable (associated with a specific diagnosis that is being evaluated, monitored, or treated as if it exists) are acceptable and can be coded in the inpatient setting, when documented at the
time of discharge.
Thank you,
BARTOLO Ojeda RN
CDI Specialist
available via tiger text
Please use your independent medical judgment in providing your response.
*Source: Kidney Disease: Improving Global Outcomes (KDIGO) 2012
--- NOTE | 2025-02-01 15:34 | CM ---
Reviewed chart, Met with Mr. Hutchinson to review discharge plans. He states he is doing better. We reviewed [facility] and he wanted me to review his son. Telephone call to his son to review discharge plans. His son confirms his father will be
staying with him for a while when he is ready for discharge. [place] is [address] [place] [address] [place] Dev[place]. We reviewed [facility] and he is agreeable to [facility]. [facility] and they do not
accept his insurance. [facility] can accept his insurance. Referral sent. His son states he home is a two story home with two steps to enter. He states his father will have to go up a
full flight of steps to get to bedroom/full bathroom. He state he has a powder room on the first floor. Medical work-up in progress. The discharge plan [facility] when medically [facility].
[2025-02-01] MEDS: LOVENOX 40 MG SC (17:02)
[2025-02-01] MEDS: LIPITOR 40 MG PO (17:02)
--- NOTE | 2025-02-01 18:00 | PTCARENOTE ---
Pt received this am with no c/o of any pain, sob or lightheadedness. Room air 98%. OOB with assist to the Br. Ambulated in the hallway with the nurse without the walker, gait steady.
--- NOTE | 2025-02-01 21:54 | PTCARENOTE ---
Pt rec'd at change of shift in bed. Pt requested nursing to ambulate with him in peng. Pt's gait steady using walker from room to lounge. min PJ noted, no cp.
[2025-02-02 03:00] VITALS: BP 155/85
[2025-02-02 03:01] VITALS: BMI 24.2
--- NOTE | 2025-02-02 03:21 | PTCARENOTE ---
Pt up every couple hours to void. No complaints. Mild OLIVA noted with ambulation. am labs completed.
[2025-02-02 03:45] LABS: Blood Urea Nitrogen 27 mg/dl (9-20); Calcium 8.7 mg/dl (8.4-10.2); Carbon Dioxide 29 mmol/L (22-30); Chloride 104 mmol/L (98-107); Estimated Creatinine Clearance 39 ml/min; Glucose 113 mg/dl (70-99); Potassium 4.2 mmol/L (3.5-5.1); Sodium 139 mmol/L (135-145); eGFR 52.51
[2025-02-02 07:47] VITALS: BP 135/76
[2025-02-02] MEDS: DIOVAN 160 MG PO (08:13)
[2025-02-02] MEDS: LOW STRENGTH ASPIRIN 81 MG PO (08:13)
[2025-02-02] MEDS: FLUSH (NSS) 1 FLUSH IV (08:13)
[2025-02-02] MEDS: COREG 6.25 MG PO (08:13)
[2025-02-02] MEDS: PROTONIX 40 MG PO (08:13)
[2025-02-02] MEDS: PLAVIX 75 MG PO (08:13)
--- NOTE | 2025-02-02 09:04 | W.PN.CARDCBS ---
Addendum entered and electronically signed by Julio Lombardi MD 02/02/25 10:55:
Patient seen, interviewed and examined by me.
He tells me he was up and ambulating with his nurse today and told me that he felt fine. His pulse ox never dropped below 95%. No chest pain and no worsening dyspnea with ambulation.
Well-appearing, no acute distress
Regular rate and rhythm with normal S1 and S2, no S3 no S4. There is a grade 1/6 apical holosystolic murmur and no rubs. PMI is normally placed.
Lungs are clear to auscultation bilaterally without wheezes rales or rhonchi.
Abdomen soft nontender nondistended with normoactive bowel sounds
Extremities show trace pretibial edema bilaterally no clubbing or cyanosis.
Neurologic exam is grossly nonfocal.
We await formal evaluation by PT regarding his ability to navigate stairs as he does have stairs at home.
Pending this evaluation, we will plan for discharge to home if PT agreeable or otherwise have to make plans for rehab stay if PT feels that is most appropriate.
He has had no chest pain status post intervention for late presentation of LAD [place] with peak troponin of 326, treated with 2.5 mm [place] MERYL to the ostial to mid LAD, residual LEATHER LACER RCA and ALEXEY-3 flow in the Circ and LA
Maintain aspirin and Plavix as dual antiplatelet regimen. Maintain Lipitor carvedilol and valsartan.
He has had some volume overload but was subsequently overdiuresed. He does have heart failure with reduced ejection fraction and will need some diuretic. Will plan to discharge on low-dose Lasix, Lasix 20 mg on Wednesdays and Fridays. We
will plan to have basic metabolic profile assessed in 1 week. We have also arranged an office visit at our office postdischarge.
Discharge planning, awaiting evaluation by PT.
Original Note:
Today's Communication / Plan
-
Evaluation on stairs with PT today. Check ambulatory pulse ox as well
Planning for DC with , home PT
Continue aspirin, Plavix, Lipitor, Coreg, valsartan
Will plan for p.o. Lasix 20 mg Tuesday with BMP in 1 week upon discharge
Cardiac rehab
Impression / Plan
-
PCP: Dr. Self in [place], phone number unknown, he can't find their card
Cardiology: Name unknown, he can't find their card
Impression:
Admitted with acute [place] open LAD PCI 01/27/2025
CAD
s/p acute anterior STEMI with peak troponin 326 01/27/2025
s/p 2.5 mm [place] MERYL to the ostial to mid LAD, residual LEATHER LACER RCA and ALEXEY-3 flow in the Circ and LAD at end of case 01/27/2025
ICM EF 35-40% by v-gram 01/27/25, 35% by echo 01/29/25
HTN
Hypercholesterolemia
Reported h/o valvular heart disease and evidence of MR at time of cath 01/27/25
Witnessed BARTOLOME without h/o BARTOLOME
intolerant to attempts at CPAP and BiPAP 01/27/25 into 01/28/25
Acute HFrEF
Echo 01/28/25: EF 35%, akinesis of the mid inferoseptum, apical septum and apex with hypokinesis of the mid inferior wall and severe hypokinesis of the mid anterior wall, mod eccentric MR, mild peak/mean 29/15 mmHg and mild to mod aortic
regurgitation, mild TR with PAP 58 mmHg
Plan:
- He presented with abdominal and chest discomfort with prehospital EKG showing evolving anterior wall [place]. Was taken urgently to [facility] where found to have mid LAD occlusion treated with STRAIGHT LINE PRESS SETTER and MERYL. Troponin peaked at 326.
- Continue DAPT, was initially on Brilinta, however was transitioned to Plavix due to concern for shortness of breath
- LDL 105. continue high intensity lipid lowering therapy. goal LDL <55
- in SR on review of tele overnight.
- BPs stable. echo showed EF 35%. continue coreg, valsartan (entresto not available on his plan). GDMT of CM as able to tolerate, consider aldactone as OP
- was diuresed during admission [place] proBNP [place] 127[address] to 6410. currently diuretics on hold. Cr 1.3. would plan to DC for now on po lasix 20mg MWF and repeat BMP in 1 week.
- will need repeat echo at 3 month izzy to reassess EF
- PT eval 02/01 noted. plan for home PT. will work with PT on stairs today and if does well, would plan for DC to home today with VN
- cardiac rehab
- Cardiology f/u arranged at [facility] 02/19/2025
- Pulmonology is also following and there is a suspicion for sleep disordered breathing. Patient was previously intolerant to attempts at BiPAP and CPAP therapies and there was an attempt at oxygen via NC on the night of 01/29/2025, the patient
pulled this off frequently. would recommend OP pulm follow up
- d/w nursing. d/w son at bedside
Progress Note - Director Erp
Subjective
Date of Service: February 02, 2025
Patient without complaints overnight
Objective
Labs:
01/31/25 03:04
02/02/25 03:07
Labs
Hgb 12.7 g/dL (13.0-18.0) L 01/31/25 03:04
Hct 39.1 % (39.0-52.0) 01/31/25 03:04
Plt Count 278 10^3/uL (130-400) 01/31/25 03:04
PT 14.5 Sec (11.4-14.6) 01/27/25 03:36
INR 1.10 01/27/25 03:36
Sodium 139 mmol/L (135-145) 02/02/25 03:07
Potassium 4.2 mmol/L (3.5-5.1) 02/02/25 03:07
BUN 27 mg/dl (9-20) H 02/02/25 03:07
Creatinine 1.3 mg/dL (0.7-1.3) 02/02/25 03:07
Glucose 113 mg/dl (70-99) H 02/02/25 03:07
Vital Signs and I&O:
Vital Signs
Temp Pulse Resp BP Pulse Ox
97.9 F 61 18 135/76 98
02/02/25 07:45 02/02/25 07:47 02/02/25 07:45 02/02/25 07:47 02/02/25 07:45
Vital Signs
Temp Pulse Resp BP Pulse Ox
97.9 F 61 18 135/76 98
02/02/25 07:45 02/02/25 07:47 02/02/25 07:45 02/02/25 07:47 02/02/25 07:45
Intake & Output
01/31/25 02/01/25 02/02/25 02/03/25
07:59 07:59 07:59 06:59
Intake Total 120 / 120
Output Total 700 / 700 450 / 450
Balance -580 / -580 -450 / -450
Physical Exam
Physical Exam
GEN: No distress, awake, alert, oriented x3. Mild dyspnea noted on conversation
HEENT: supple, anicteric, mmm, EOMI
LUNGS: CTA bilaterally, no wheezes/rales
CV: Reg, S1/S2, no murmur
ABD: soft, BS+, NT/ND
EXT: No cyanosis, clubbing, edema
NEURO: Gross non-focal
SKIN: Warm, pink, dry. No rash
--- NOTE | 2025-02-02 09:07 | PTCARENOTE ---
The patient is aaox3, his vital signs are stable. NSR is noted on the monitor. 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 His right groin is CAM and a right pedal pulse is noted also. He has no complaints of pain, discomfort,
or SOB. However, he appears dyspneic (at rest) at times even though he denies it. His pulse ox on RA during that time was 99% on RA.
--- NOTE | 2025-02-02 09:19 | W.DS.TRANS ---
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
-
Discharge Instructions:
Discharge Diagnosis/Procedures Large acute heart attack with LAD stenting,
ischemic cardiomyopathy ejection fraction 35%,
acute heart failure with a reduced ejection
fraction
Diet 2 Gram Sodium,Restrict fluids to 64 oz
Activity No strenuous activity
Driving Restrictions As prior to admission
Bathing Restrictions OK to Shower
Blood Work check bloodwork (BMP) 1 week after discharge-lab
slip provided/on chart
Other Services VN,Cardiac Rehab,PT
Specialty Instructions Weigh Daily
Instructions: *DCA Heart Failure Instructions
Stand-Alone Forms: DC Instructions- Cath/EP Lab
Changes to Home Medications: Yes
Discharge Medications:
DC Medications w/original date entered in [employer]
finasteride 5 mg tablet 5 mg QMWFSU 01/27/25
aspirin 81 mg chewable tablet 81 mg PO DAILY Heart disease/condition 90 days #90 tabs 02/01/25
atorvastatin 40 mg tablet 40 mg PO QPM High cholesterol #90 tabs 02/01/25
carvedilol 6.25 mg tablet 6.25 mg PO BID Heart disease/condition #180 tabs 02/01/25
clopidogrel 75 mg tablet 75 mg PO DAILY Heart disease/condition #90 tabs 02/01/25
pantoprazole 40 mg tablet,delayed release 40 mg PO DAILY protect stomach on blood thinners #90 tabs 02/01/25
furosemide 20 mg tablet (Lasix) 20 mg PO MOWEFR #20 tabs 02/02/25
nitroglycerin 0.4 mg sublingual tablet 0.4 mg sublingual Q5-15M PRN chest pain #20 tabs 02/02/25
valsartan 160 mg tablet 160 mg PO DAILY #1 tab 02/02/25
Home Medication Changes
asa, lipitor, coreg, plavix, protonix, lasix, SL nitro PRN are new
Pending Results: No
[2025-02-02 09:47] VITALS: BMI 24.2
[2025-02-02 10:13] VITALS: O2SAT 95; O2SAT 98
--- NOTE | 2025-02-02 10:14 | PTCARENOTE ---
I walked the patient in the peng for an ambulatory O2 sat. At rest he was 98% on RA. He ambulated in the peng and walked approximately 225 feet. His O2 Sat was 95% while ambulating. He recovered at 98% on RA at rest.
[2025-02-02 11:29] VITALS: BP 143/69
== END 2025-02-02 15:02 | disposition home health service (06) | DRG 321 ==
LOC: IVU 06:33
PROVIDERS: Internal Medicine Cardiovascular Disease; Physician Assistant Medical; ADMITTING PHYSICIAN Internal Medicine Interventional Cardiology; CONSULT PHYSICIAN Internal Medicine; EMERGENCY PHYSICIAN Emergency Medicine; FAMILY PHYSICIAN Internal Medicine
PROC: 4A023N7 Measurement of Cardiac Sampling and Pressure, Left Heart, Percutaneous Approach (ICD-10-PCS; 2025-01-27)
PROC: B2111ZZ Fluoroscopy of Multiple Coronary Arteries using Low Osmolar Contrast (ICD-10-PCS; 2025-01-27)
PROC: 027034Z Dilation of Coronary Artery, One Artery with Drug-eluting Intraluminal Device, Percutaneous Approach (ICD-10-PCS; 2025-01-27)
PROC: B2151ZZ Fluoroscopy of Left Heart using Low Osmolar Contrast (ICD-10-PCS; 2025-01-27)
PROC: 5A09357 Assistance with Respiratory Ventilation, Less than 24 Consecutive Hours, Continuous Positive Airway Pressure (ICD-10-PCS; 2025-01-28)
DX: I21.09 ST elevation (STEMI) myocardial infarction involving other coronary artery of anterior wall (principal); I50.21 Acute systolic (congestive) heart failure; I13.0 Hypertensive heart and chronic kidney disease with heart failure and stage 1 through stage 4 chronic kidney disease, or unspecified chronic kidney disease; N17.9 Acute kidney failure, unspecified; N40.0 Benign prostatic hyperplasia without lower urinary tract symptoms; E78.00 Pure hypercholesterolemia, unspecified; I25.5 Ischemic cardiomyopathy; N18.1 Chronic kidney disease, stage 1; R06.81 Apnea, not elsewhere classified; H91.90 Unspecified hearing loss, unspecified ear; I08.0 Rheumatic disorders of both mitral and aortic valves; I25.10 Atherosclerotic heart disease of native coronary artery without angina pectoris; Z60.2 Problems related to living alone; Z60.3 Acculturation difficulty; Z79.82 Long term (current) use of aspirin; Z79.899 Other long term (current) drug therapy; Z79.02 Long term (current) use of antithrombotics/antiplatelets; Z97.4 Presence of external hearing-aid
CPT/HCPCS: 71045; 71046; 80048; 80053; 80061; 82805; 83036; 83735; 83880; 84132; 84484; 85025; 85027; 85347; 85610; 93005; 93306; 93308; 93458; 94660; 94762; 97162; 99152; 99153; 99285; C1725; C1760; C1769; C1874; C1894; C9606; Q9967

== ENCOUNTER 2025-02-08 11:21 | Inpatient (IN) | payer OTHER, SELFPAY ==
[2025-02-08] VITALS (65 sets, daily range): BP systolic 85–172; BP diastolic 50–130; BMI 25.2
--- NOTE | 2025-02-08 08:28 | ED.GENMED ---
History of Present Illness
General
Chief Complaint: Breathing Problem
Time Seen by Provider: 02/08/25 08:11
History of Present Illness
History of Present Illness:
89-year-old male with history of CAD status post stenting on 01/27, hypertension, hyperlipidemia, CHF with EF 35%, mitral regurgitation presenting to the emergency department for shortness of breath. Patient arrives with son. Since recent
catheterization and stenting, patient has been staying with his son. Notes he has had about 1-2 episodes of difficulty breathing per day, however usually improve with some Ativan. However this morning when he went to go check on the patient, very
dyspneic. Patient on arrival with increased work of breathing, limited historian. Presently denying any chest pain. Son does note that he has been coughing, however keeps windows open at night. Denies any lower extremity swelling. Denies any
known fever. No known sick contacts. No additional history obtained at this time
Past History
Past History
ED Past Medical History: HTN, Hypercholesterolemia and Other (BPH)
ED Past Surgical History: None
Social History
Tobacco: Non-smoker
Alcohol: None
Drug: None
Personal:
Living: alone
Employment: Retired
Family History
Family History: Unable to obtain
Phy Exam
Physical Exam
Physical Exam:
General: Tachypneic with increased work of breathing
HEENT: protecting airway
Neck: appears supple
CV: Normal heart rate, regular rhythm
Resp: Increased work of breathing, rhonchi bilaterally with mild crackles at the bases
Abd: No distention
Extremities: No deformities, no swelling
Neuro: alert, no focal neurologic deficit
: deferred
Rectal: deferred
Psych: Normal affect
Skin: Intact
Scores
Heart Failure Risk
Heart Failure Risk Score: Yes
History of Stroke or TIA: No
History of intubation for respiratory distress: No
Heart rate on ED arrival >/= 110: No
SaO2 <90% on arrival on room air: No
HR >/=110 during 3min walk test (or too ill to perform test): Yes
ECG has acute ischemic changes: No
Urea >/=12mmol/L (BUN 33.6mg/dL): No
Serum CO2>/=35mmol/L: No
Troponin I or T elevated to MA Level (0.4mg/dL): Yes
NT-proBNP >/=5,000ng/L (5,000pg/ml): Yes
HF Risk Score: 5
Admission Status: VERY HIGH RISK 39.8% Consider admission to hospital
Course
Orders/Labs/Results
Orders:
Orders
02/08/25 08:06
Electrocardiogram (*1) Urgent
Reason for Study: Shortness of Breath
EKG- Treatment ONCE
02/08/25 08:21
Electrocardiogram (*1) Stat
Reason for Study: Other
Other Reason for Exam: chest pain
Lorazepam [Ativan] 2 mg .ROUTE .STK-MED ONE
Nitroglycerin 100 mg/250 ml [Nitroglycerin Premix] 100 mg in 250 ml .ROUTE .STK-MED
Nitroglycerin 100 mg/250 ml [Nitroglycerin Premix] 100 mg in 250 ml IV NOW
Currently infusing. Continue current dose and titrate:: Yes
Titrate to keep:: SBP < 160 mmHg
Titrate by mcg/min:: 5 mcg/min, may increase by 10 mcg/min if dose > 20 mcg/min
Frequency of titrations (minutes):: every 3-5 minutes
Maximum dose in mcg/min:: 200
Begin to taper infusion when:: Remained at goal for 2hrs
Taper by mcg/min:: 5 mcg/min
Frequency of taper (minutes) if patient maintains goal:: 30
Taper to off?: Yes
If infusion off & no longer maintaining goal:: Contact Provider
CR Chest Portable - 1 View Urgent
Comment:
Reason For Exam: SOB
Reason Study Needs to be Portable: Patient Unstable
Bipap [RESP] Urgent
Patient to use own unit?: No
Inspiratory Pressure (cm H2O): 12
Expiratory Pressure (cm H2O): 5
02/08/25 08:22
Lorazepam [Ativan] 0.5 mg IV NOW STA
02/08/25 08:26
COVID-19 Antigen Urgent
Source: Nasal Swab
Complete Blood Count/With Diff Urgent
Comprehensive Metabolic Panel Urgent
NT-proBNP Urgent
PTT Urgent
Prothrombin Time Urgent
Troponin I Urgent
Influenza A+B Rapid Molecular Urgent
[facility] Source: Nasal Swab
Specimen Description:
02/08/25 09:23
Cefepime HCl [Maxipime] 2,000 mg IV NOW STA
Furosemide [Lasix] 40 mg IV NOW STA
02/08/25 09:28
Lactic Acid Q4H
Comment: CANCEL 2nd LACTIC ACID IF 1st LACTIC ACID IS LESS THAN 2
Blood Culture Q30M
KEON Source: Blood/Venous
Specimen Description:
02/08/25 09:43
Blood Culture Q30M
KEON Source: Blood/Venous
Specimen Description:
02/08/25 09:54
Vancomycin [Vancocin] 2,000 mg 0.9% Sodium Chloride 500 ml [Nss] 500 ml IV NOW
02/08/25 10:53
Admit/Transfer Patient As Directed
Co-Sign Provider:
Level of Care: Inpatient admission
Assign to:: IMU- Intermediate Care
Physician / Group: Hospitalist
Diagnosis: Acute hypoxic resp failure
Reason for Hospitalization: Acute hypoxic resp failure
Expected length of stay greater than two midnights?: Yes
ELOS- Estimated Length of Stay in days: 3
I certify the patient meets the requirements for IP care: Yes
PRN Pain Medication Management As Directed
May give lesser potent ordered pain med per pt: Yes
preference::
Protocol:: Medication orders for pain may be administered in a
manner that supports deferring to patient preference
when the pt is:
- Requesting an ordered lesser potent pain medication.
Least to most potent pain medications are defined
as: acetaminophen < NSAID < tramadol < opioids
(morphine, oxycodone, hydromorphone).
- Requesting a lesser dose of the same medication IF
ORDERED.
- Requesting a less intrusive route of administration
if both routes are prescribed by the provider (PO <
IV).
02/08/25 10:56
Code Status As Directed
Resuscitation Status: Full Code
02/08/25 11:11
Respiratory Culture/Gram Stain Urgent
KEON Source: Sputum
Specimen Description:
Abnormal Lab Results
02/08/25
08:26
WBC 14.3 H 10^3/uL
(4.8-10.8)
RBC 4.09 L 10^6/uL
(4.70-6.10)
Hgb 11.9 L g/dL
(13.0-18.0)
Hct 37.3 L %
(39.0-52.0)
MCHC 31.9 L g/dL
(33.0-37.0)
RDW 15.0 H %
(11.5-14.5)
MPV 12.8 H fL
(7.4-10.4)
Abs Immat Gran (auto) 0.1 H 10^3/uL
(0-0.05)
Absolute Neuts (auto) 10.6 H 10^3/uL
(1.4-6.5)
Absolute Monos (auto) 1.0 H 10^3/uL
(0.1-0.6)
Lymphocytes % 15.6 L %
(20.5-51.1)
PT 15.4 H Sec
(11.4-14.6)
Sodium 134 L mmol/L
(135-145)
BUN 26 H mg/dl
(9-20)
Creatinine 1.4 H mg/dL
(0.7-1.3)
Glucose 129 H mg/dl
(70-99)
Troponin I 0.947 H* ng/ml
02/08/25 08:26
02/08/25 08:26
Vital Signs
Initial and Last Documented VS:
Initial Vital Signs
Temp Pulse Resp BP Pulse Ox
99.1 F 79 28 172/101 92
02/08/25 08:02 02/08/25 08:02 02/08/25 08:02 02/08/25 08:02 02/08/25 08:02
Last Documented Vital Signs
Temp Pulse Resp BP Pulse Ox
99.1 F 53 19 135/75 100
02/08/25 08:02 02/08/25 12:20 02/08/25 12:20 02/08/25 12:20 02/08/25 12:20
MDM/Problems Addressed
MDM/Problems Addressed:
89-year-old male with history of CAD status post stenting on 01/27, hypertension, hyperlipidemia, CHF with EF 35%, mitral regurgitation presenting to the emergency department for shortness of breath. Vital signs on arrival significant for tachypnea.
On exam, patient in mild to moderate respiratory distress with increased work of breathing, rhonchi and crackles bilaterally. No significant lower extremity edema. Given patient's clinical presentation and reportedly acute onset of symptoms,
concern for CHF and flash pulmonary edema. EKG obtained on arrival which is abnormal, however without significant change from prior, upon discharge from recent hospitalization. Son notes that he has had these episodes of dyspnea in the past,
however not to this extent. Usually treated with Ativan. Anxiety component is a consideration, however given patient's significant cardiac history, will initiate workup with laboratory analysis. Patient hypertensive on arrival. Will start
patient on a nitro drip and BiPAP for respiratory support. Will obtain stat portable chest x-ray imaging. Low-grade temperature on arrival. Will also send COVID and flu
09:00 -chest x-ray concerning for pulmonary edema, also possible right lower lobe infiltrate. Patient does have leukocytosis, low-grade temperature, cough, so we will treat as hospital-acquired pneumonia given recent admission. Patient is
improving on the BiPAP, as well as the nitro drip. Blood pressure has since dropped, so will back off of the nitro. Ultimate plan for admission
09:20 -patient's troponin is elevated, however downtrending since recent hospitalization. BNP is elevated, as expected. Will administer Lasix, antibiotics, admission
*Pulse Oximetry
SaO2: 92
Oxygen Mode of Delivery: Room air
Patient hypoxic: no
*EKG
Interpreted by ED Provider?: Yes
EKG Intrepretation Date: 02/08/25
EKG Intrepretation Time: 08:31
Interpretation: abnormal
Comparison EKG: no changes
Heart Rate: 86
Rate: normal
Rhythm: sinus
[place]: normal axis
Interval: long QT
QRS Pattern: normal QRS
Ischemia: ST elevation (laterally, appears unchanged. Respiratory artifact)
*Critical Care Note
Total Time (30-74mins, 75-104mins- exclusive of procedures): 57
comment:
The high probability of a clinically significant, sudden or life threatening deterioration of the cardiopulmonary system(s) required my full and direct attention, intervention and personal management. The aggregate critical care time was 57 minutes.
This time is in addition to time spent performing reported procedures but includes the following:
[x] Data Review and interpretation
[x] Patient assessment and monitoring of vital signs
[x] Documentation
[x] Medication orders and management
ED Attending Note
-
Portions of this chart may have been created with voice recognition software.� Occasional wrong word or��sound alike� substitutions may have occurred due to the inherent limitations of voice recognition software.
Discharge Plan
Departure
Patient Disposition: Admit
Date of Disposition: 02/08/25
Time of Disposition: 09:30
Presentation/result/management discussed w/ accepting MD/DO: Hospitalist
Patient with high blood pressure during this ER visit?: Yes
Condition: Fair
Discharge Problem:
CHF exacerbation, Right lower lobe pneumonia
Interventions
Interventions:
*Risk Screen - Suicide Last Done: 02/08/25 08:02
*General Assessment Last Done: 02/08/25 08:02
*Neglect/Abuse Screening Last Done: 02/08/25 08:02
*ED COVID-19 Vaccine History Last Done: 02/08/25 08:06
*ED Influenza Vaccine History Last Done: 02/08/25 08:06
ED- Cardiac Assessment Last Done: 02/08/25 08:38
ED- Pulmonary Assessment Last Done: 02/08/25 08:38
[2025-02-08] MEDS: NITROGLYCERIN PREMIX 250 IV (08:40)
[2025-02-08] MEDS: ATIVAN 0.5 MG IV (08:40)
--- NOTE | 2025-02-08 08:44 | EDRN ---
BIPAPA 12/5 6L
[2025-02-08 08:52] LABS: Hematocrit 37.3 % (39.0-52.0); Hemoglobin 11.9 g/dL (13.0-18.0); Mean Corp Hgb Conc. 31.9 g/dL (33.0-37.0); Mean Corpuscular Volume 91.2 fL (80.0-94.0); Nucleated Red Blood Cells % 0 % (-); Platelet Count 332 10^3/uL (130-400); Red Cell Dist. Width 15.0 % (11.5-14.5)
[2025-02-08 09:02] LABS: ALT (SGPT) 50 U/L (0-50); AST (SGOT) 35 U/L (17-59); Albumin 3.5 g/dl (3.5-5.0); Alkaline Phosphatase 58 U/L (38-126); Blood Urea Nitrogen 26 mg/dl (9-20); Calcium 8.6 mg/dl (8.4-10.2); Carbon Dioxide 26 mmol/L (22-30); Chloride 104 mmol/L (98-107); Glucose 129 mg/dl (70-99); Potassium 4.4 mmol/L (3.5-5.1); Sodium 134 mmol/L (135-145); Total Protein 6.9 g/dl (6.3-8.2); eGFR 48.04
[2025-02-08 09:10] LABS: COVID-19 Antigen Negative (Negative)
[2025-02-08 09:14] LABS: Troponin I 0.947 ng/ml
--- NOTE | 2025-02-08 09:16 | EDRN ---
Provider notified of critical value troponin
[2025-02-08 09:23] LABS: INR 1.19; PT 15.4 Sec (11.4-14.6)
[2025-02-08 09:24] LABS: APTT 31.0 Sec (23.4-35.0)
[2025-02-08] MEDS: MAXIPIME 2000 MG IV (09:44)
[2025-02-08] MEDS: VANCOCIN 540 MG IV (10:07)
--- NOTE | 2025-02-08 10:59 | HPS.HSE ---
Family Physician
-
Family Physician: Cortes Self
Chief Complaint
-
Shortness of breath
History of Present Illness
89-year-old male was admitted to [facility] on and discharged on 02/02/2025. He had a STEMI. He presented with abdominal and chest discomfort and got cardiac catheterization. He was found to have a mid LAD occlusion treated with
drug-eluting stent. He was initially started on Brilinta then changed to Plavix due to concerns of shortness of breath. Patient's creatinine was slightly elevated and Lasix was decreased and changed to p.o. Patient also has chronic total
occlusion of her RCA. Pulmonary also followed the patient for suspicion of sleep disordered breathing. He was previously intolerant of PAP therapy and was not using it at home. He was also prescribed Ativan after discharge for anxiety initially
started with 0.25 then went up to 1 mg at nighttime. Son states that patient feels that he cannot catch breath at times and opens the window gasping for air and he leaves the window open in the cold. Family usually comforts him for 20 minutes and
he calms down. Shortness of breath has been getting worse. No fever
Medical History
Past Medical History
Past Medical History: Reports Other
Additional Past Medical History:
Sleep apnea, STEMI, CHF, coronary disease, hypertension, hyperlipidemia, mitral regurgitation, NSVT, prediabetes
Past Surgical History: Reports Other
Additional Past Surgical History:
Cardiac cath with stent in LAD
Social History
Tobacco: Non-smoker
Alcohol: Occasional
Drug: None
Personal:
Living: With Family
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
Family History
Family History: Other (MOm with dementia)
Allergies / Home Medications
Allergies reflects when Allergies were last updated in [facility].
Home Medications with original date entered in [facility]
Allergy/Medication List:
Allergies
Allergy/AdvReac Type Severity Reaction Status Date / Time
No Known Allergies Allergy Verified 02/08/25 08:02
Home Medications
finasteride 5 mg tablet 5 mg PO Q48H Urinary Issue 01/27/25
aspirin 81 mg chewable tablet 81 mg PO DAILY Heart disease/condition 90 days #90 tabs 02/01/25
atorvastatin 40 mg tablet 40 mg PO QPM High cholesterol #90 tabs 02/01/25
carvedilol 6.25 mg tablet 6.25 mg PO BID Heart disease/condition #180 tabs 02/01/25
clopidogrel 75 mg tablet 75 mg PO DAILY Heart disease/condition #90 tabs 02/01/25
furosemide 20 mg tablet (Lasix) 20 mg PO MOWEFR Fluid Retention/Swelling 02/08/25
lorazepam 0.5 mg tablet 1 mg PO HSPRN PRN anxiety 02/08/25
nitroglycerin 0.4 mg sublingual tablet 0.4 mg sublingual [id number] PRN chest pain 02/08/25
pantoprazole 40 mg tablet,delayed release 40 mg PO DAILY Gastrointestinal Issue 02/08/25
valsartan 160 mg tablet 160 mg PO DAILY Blood Pressure 02/08/25
Review of Systems
-
A 12 point ROS was completed and negative except as noted: Yes
Respiratory: Reports Trouble Breathing
Cardiac: Denies Chest Pain
Abdomen/GI: Denies Abdominal Pain
Physical Exam
Vital Signs
Vital Signs
Temp Pulse Resp BP Pulse Ox
99.1 F 50 27 99/54 97
02/08/25 08:02 02/08/25 10:20 02/08/25 10:20 02/08/25 10:20 02/08/25 10:20
Physical Exam
General: Other (on BIPAP)
Respiratory: Rales (right base)
Cardiac: S1/S2 and Regular Rhythm
GI: Soft, Non Tender and Normal Bowel Sounds
Musculoskeletal: No Edema
Neuro: Awake and Nonfocal/grossly intact; No Facial Droop
Laboratory Results
-
02/08/25 08:
02/08/25:
Laboratory Results
PT 15.4 Sec (11.4-14.6) H 02/08/25 08:
INR 1.19 02/08/25 08:
APTT 31.0 Sec (23.4-35.0) 02/08/25:
Lactic Acid Cancelled 02/08/25 13:15
Total Bilirubin 1.0 mg/dl (0.2-1.3) 02/08/25:
AST 35 U/L (17-59) 02/08/25:
ALT 50 U/L (0-50) 02/08/25:
Alkaline Phosphatase 58 U/L (38-126) 02/08/25 08:
Troponin I 0.947 ng/ml H* 02/08/25 08:
Impression/Plan
-
IMPRESSION/PLAN:
Echo 01/31/2025-EF 35%. Normal LV size with moderately reduced systolic function. Akinesis of the mid inferoseptum and inferior wall, apical septum and apex. Hypokinesis of the distal anterior wall. RV size and systolic function are within
normal limits.
Chest [id number] increased interstitial markings with patchy bibasilar airspace opacities greater on the right. Findings nonspecific but could represent interstitial edema, patchy bibasilar atelectasis, right lower lobe pneumonia was also a
consideration.
# Acute hypoxic respiratory failure
Likely secondary to combination of factors
COVID neg
CHF, pneumonia
BIPAP- wean as tolerated.
If not getting better may need CT scan of the chest
# Pneumonia
Type unclear. Check sputum cultures if possible
Treat with Zosyn and doxycycline.
# Acute on chronic HFrEF
Ischemic cardiomyopathy
BNP 69740
If blood pressure stable treat with Lasix
Intake output charting
Daily weights
Cardiology to evaluate
# Recent STEMI with LAD stent
Continue aspirin Plavix statin, Coreg. Hold valsartan
Follow troponin
# History of NSVT
# REEMA- follow creat
# Hyperlipidemia-continue statin
# Enlarged prostate-continue finasteride
# DVT prophylaxis-Lovenox
# Full code
Discussed with patient's son at bedside
Discussed with cardiology
Time over 75 min
Part of this note was created using voice recognition system. Occasional wrong word or��sound alike� substitutions may have inadvertently occurred due to the inherent limitations of voice recognition software. If noted kindly bring it to my
attention for correction.
--- NOTE | 2025-02-08 14:04 | CON.CAR ---
Addendum entered and electronically signed by Yg Hernandez MD 02/08/25 15:23:
Attending addendum: Patient is well known to me as I had seen him when he presents with an acute anterior wall KY on 01/27/25 at 4:00. He was referred for coronary angiography and was found to have CENTRIFUGE OPERATOR of the RCA collateralized and high-grade
stenosis in the mid LAD that was successfully stented with a 2.5 x 38 mm [place] stent. He suffered a large KY with peak troponin rising to 326 ng/ml and EF falling to around 30%. he recovered slowly and did experience some shortness of breath while
in the hospital and his Brilinta was switched to clopidogrel given concerns that symptoms may be drug related. He was discharged on 02/02 and continued to experience shortness of breath often times when lying recumbent. This morning he experienced
an episode that was particularly severe and he was brought to the ER for further evaluation. On arrival he received some nitroglycerin and dropped his blood pressures. He was hypoxic and placed on bipap. His shortness if breath is improved with
bipap. His proBNP returned elevated at 10,400 pg/ml. He denies any chest pain or symptoms similar to those leading him to see medical attention with his KY.
PE:
Gen: Bipap is in place. Understanding him is difficult with Bipap mask
HEENT: NC/AT, sclera anicteric.
Lungs: Posterior lung field crackles to lower 1/3 bilaterally
CV: RRR with normal S1 and S2. I/ murmur USB and lower left sternal border
Ext: No edema
ECG: Sinus bradycardia with anterior T-inversions and evidence of anterior KY with inferior Q waves
RECOMMENDATIONS:
-Continue aspirin and Plavix
-IV diuresis with furosemide 40mg or 80mg IV bid until we are making way with diuresis
-Continue valsartan (Entreso) is NOT covered by current prescription
-Low threshold to obtain repeat echocardiogram.
-Could consider right heart if renal function
-May consider adding SGLT2 or consider GLP1RA depending on insurance coverage
-Continue high intensity statin.
.
Original Note:
Consultation
Consultation Request
Date/Time Consultation Performed: 02/08/25
Requesting Provider: Dr. Macias
Performing Provider: Belinda Crowe PA-C for Dr. Hernandez
Reason for Consultation: CHF
Medical History
-
Chief Complaint: SOB
History of Present Illness:
Patient is an 89-year-old male with admission to [facility] 01/27 - 02/02/2025 for acute anterior STEMI with peak troponin of 326 status post LAD MERYL with residual CENTRIFUGE OPERATOR of RCA. He was noted to have ischemic cardiomyopathy with EF of 35% and was diuresed
during admission and discharged on Lasix dosing of 20 mg Tuesday as had also experienced renal insufficiency during that admission. Since that time patient noted to have worsening dyspnea on exertion and episodes of gasping and is
subsequently able to calm down (ativan has been helping), however has been progressive. Patient noted to be hypoxic on arrival. No recent [place] [address]. Geo CP. Cardiology consulted for evaluation. Patient primarily
Hungarian speaking.
PMH:
CAD
s/p acute anterior STEMI with peak troponin 326 01/27/2025
s/p 2.5 mm Red MERYL to the ostial to mid LAD, residual CENTRIFUGE OPERATOR RCA and ALEXEY-3 flow in the Circ and LAD at end of case 01/27/2025
ICM EF 35-40% by v-gram 01/27/25, 35% by echo 01/29/25
CHFrEF
HTN
Hypercholesterolemia
Reported h/o valvular heart disease and evidence of MR at time of cath 01/27/25
Witnessed BARTOLOME without h/o BARTOLOME
intolerant to attempts at CPAP and BiPAP 01/27/25 into 01/28/25
Past Medical History
Past Medical History: Other (in HPI)
Social History
Tobacco: Non-Smoker
Alcohol: None
Personal:
Living: With Family
Family History
Family History: Reviewed & Not Pertinent
Allergies / Home Medications
Allergy/AdvReac Type Severity Reaction Status Date / Time
No Known Allergies Allergy Verified 02/08/25 08:02
�Medication �Instructions �Recorded �Confirmed �Type
finasteride 5 mg tablet 5 mg PO Q48H Urinary Issue 01/27/25 02/08/25 History
aspirin 81 mg chewable tablet 81 mg PO DAILY Heart 02/01/25 02/08/25 Rx
disease/condition 90 days #90 tabs
atorvastatin 40 mg tablet 40 mg PO QPM High cholesterol #90 02/01/25 02/08/25 Rx
tabs
carvedilol 6.25 mg tablet 6.25 mg PO BID Heart 02/01/25 02/08/25 Rx
disease/condition #180 tabs
clopidogrel 75 mg tablet 75 mg PO DAILY Heart 02/01/25 02/08/25 Rx
disease/condition #90 tabs
furosemide 20 mg tablet (Lasix) 20 mg PO MOWEFR Fluid 02/08/25 02/08/25 History
Retention/Swelling
lorazepam 0.5 mg tablet 1 mg PO HSPRN PRN anxiety 02/08/25 02/08/25 History
nitroglycerin 0.4 mg sublingual 0.4 mg sublingual [id number] PRN 02/08/25 02/08/25 History
tablet chest pain
pantoprazole 40 mg tablet,delayed 40 mg PO DAILY Gastrointestinal 02/08/25 02/08/25 History
release Issue
valsartan 160 mg tablet 160 mg PO DAILY Blood Pressure 02/08/25 02/08/25 History
Review of Systems
-
Unable to obtain full review of systems at this time due to: Language Barrier
History Source: Patient
All other systems: Negative unless noted
Physical Exam
Vital Signs
Temp Pulse Resp BP Pulse Ox
99.1 F 53 22 125/85 99
02/08/25 08:02 02/08/25 13:50 02/08/25 13:50 02/08/25 13:50 02/08/25 13:50
Lab Results
02/08/25 08:26
02/08/25 08:26
Troponin I 0.947 ng/ml H* 02/08/25 08:26
Zup-D-Zrllktnkngu Pept 26483 pg/ml 02/08/25 08:26
Physical Exam
General: Other (on BIPAP)
HEENT: Normocephalic, Anicteric and Moist Mucous Membranes
Respiratory: Wheezes and Crackles
Cardiac: S1/S2 and Regular Rhythm
GI: Soft, Non Tender, Non Distended and Normal Bowel Sounds
Musculoskeletal: No Clubbing, No Cyanosis and Edema (1+ of B/L LE)
Skin: Warm and Dry
Neuro: Awake, Alert and Oriented
Impression / Plan
-
Primary Housekeeping Attendant: Dr. Tere Lombardi
Assessment:
Presentation with SOB
Acute HFrEF
CAD
s/p acute anterior STEMI with peak troponin 326 01/27/2025
s/p 2.5 mm Red MERYL to the ostial to mid LAD, residual CENTRIFUGE OPERATOR RCA and ALEXEY-3 flow in the Circ and LAD at end of case 01/27/2025
ICM EF 35-40% by v-gram 01/27/25, 35% by echo 01/29/25
HTN
Hypercholesterolemia
Reported h/o valvular heart disease and evidence of MR at time of cath 01/27/25
Witnessed BARTOLOME without h/o BARTOLOME
intolerant to attempts at CPAP and BiPAP 01/27/25 into 01/28/25
Echo 01/28/25: EF 35%, akinesis of the mid inferoseptum, apical septum and apex with hypokinesis of the mid inferior wall and severe hypokinesis of the mid anterior wall, mod eccentric MR, mild peak/mean 29/15 mmHg and mild to mod aortic
regurgitation, mild TR with PAP 58 mmHg
ECHO 01/31/2025: EF 35%, akinesis of mid inferoseptum and inferior wall, apical septum and apex, hypokinesis of distal anterior wall
Plan:
- Patient with admission for STEMI resulting in LAD PCI 01/27 - 02/02/2025 now presents back with worsening shortness of breath since discharge
-Currently requiring BiPAP, wean as able
-proBNP 10,000
-Chest x-ray by my review appears to have evidence of pulmonary edema
-Agree with IV diuresis. Was discharged on p.o. Lasix 20 mg Tuesday as during last admission, creatinine had bumped to 1.7 with diuresis and contrast administration. Creatinine today is 1.4, will need to continue to monitor with
diuresis
-Echo last admission with EF 35%
-GDMT of cardiomyopathy as able. Continue Coreg, losartan. Entresto is not covered by patient's insurance. If creatinine remains stable, consider addition of Farxiga, which has $0 co-pay. Would also consider addition of Aldactone if able
-Troponin downtrending from last admission, 0.9. EKG sinus bradycardia with PACs and evidence of evolving anterior KY. Patient without chest pain. Continue aspirin, Plavix. He initially was on Brilinta, however this was transitioned due to
shortness of breath which was felt to potentially be from ticagrelor.
-he is scheduled for appt in cards office 02/19.
Data Reviewed
-
EKG: Tracing Personally Visualized and interpreted
Radiology: Image Personally Visualized and interpreted
Medical Tests (Nuc Med, Echo etc): Report Reviewed by me
Labs: Labs Reviewed by me
Old Records: Reviewed
--- NOTE | 2025-02-08 14:57 | CM ---
Chart reviewed and spoke with patient and son Ramon at ED bedside
Recent stay at [facility] due to NSTEMI, dc home on 02/02 with [facility]. Cardiac rehab was supposed to start in 2 weeks
Lives with son and his in 3 story home .
Prior to NSTEMI he was independent and went to [facility] 3/wk
about 6 [address] Eleuterio Bray
RX plan yes
Pharmacy [facility]
hx of [facility]
Referral sent to [facility] liasian Emilia Ramos to resume when medically ready
no hx of SNF
Son will contact cardiac rehab once he is discharged from hospital to coordinate as needed
DCP to be assessed
Tx to IMU on BIPAP
home with HHC vs SNF
CM will continued to follow up for any dcp needs
[2025-02-08] MEDS: LASIX 80 MG IV (15:03)
--- NOTE | 2025-02-08 15:32 | W.PN.UPDATE ---
Addendum entered and electronically signed by Pinky Macias MD 02/08/25 15:44:
Pt seen again. Feeling better
Will Try and wean off BIPAP and place on O2
Reached out to Resp.
He diuresed well.
D/W Son at bed side
Original Note:
Update Note
Progress Note Update
See that transfer orders not processed . Pt yet to get Am meds and also troponin still not drawn. Pt's nurse notified.
[2025-02-08] MEDS: LOW STRENGTH ASPIRIN 81 MG PO (15:58)
[2025-02-08] MEDS: PROTONIX 40 MG PO (15:59)
[2025-02-08] MEDS: PLAVIX 75 MG PO (15:59)
[2025-02-08] MEDS: VIBRAMYCIN 100 MG PO ×2 (16:00→20:15)
[2025-02-08] MEDS: ZOSYN 50 IV ×2 (16:11→23:31)
[2025-02-08 17:03] LABS: Troponin I 0.882 ng/ml
[2025-02-08] MEDS: LIPITOR 40 MG PO (18:55)
[2025-02-08] MEDS: LOVENOX 30 MG SC (18:55)
[2025-02-08] MEDS: COREG 6.25 MG PO (20:15)
--- NOTE | 2025-02-08 22:00 | PTCARENOTE ---
Pt received from ED to IMU. AAOX3. Tuvaluan speaking. Does speak a little Divehi and understands some as well. Son Ramon and family at bedside helping translate for pt. Pt received on 5L NC pox 91-98%. Afebrile. SR/PQT on CM rate 60's-70's. CHF
pkt given. Much education provided to family at bedside and in turn to pt via son regarding pt's home diet. Pt enjoys soups with high salt content. Afib videos on TV as well. Lungs diminished, scattered crackles, OLIVA, MARISSA, orthopneic. Tachypneic
rate 30's. Breathing settles down with rest. Skin intact. Rest of assessment as documented. Using urinal in bed, can spill. Troponin critical at 0.801 but lower than in ED. Tonya SANDOVAL TT'd and aware. Pt was oriented to room and surroundings. Pt
very knowledgeable to room since just d/c last Tuesday from [facility]. Call rich remains within reach. Will continue to monitor.
[2025-02-08 22:46] LABS: Troponin I 0.801 ng/ml
[2025-02-08] MEDS: FLUSH (NSS) 2 FLUSH IV (23:33)
[2025-02-09] VITALS (12 sets, daily range): BP systolic 96–153; BP diastolic 55–80; BMI 24.9
[2025-02-09] MEDS: ZOSYN 50 IV ×4 (03:38→21:24)
[2025-02-09] MEDS: ROBITUSSIN DM 10 ML PO ×3 (03:38→21:24)
[2025-02-09] MEDS: FLUSH (NSS) 2 FLUSH IV ×2 (03:39→21:25)
[2025-02-09 03:49] LABS: Hematocrit 33.8 % (39.0-52.0); Hemoglobin 10.8 g/dL (13.0-18.0); Mean Corp Hgb Conc. 32.0 g/dL (33.0-37.0); Mean Corpuscular Volume 91.8 fL (80.0-94.0); Platelet Count 275 10^3/uL (130-400); Red Cell Dist. Width 14.9 % (11.5-14.5)
[2025-02-09 04:06] LABS: Blood Urea Nitrogen 31 mg/dl (9-20); Calcium 8.3 mg/dl (8.4-10.2); Carbon Dioxide 26 mmol/L (22-30); Chloride 107 mmol/L (98-107); Estimated Creatinine Clearance 33 ml/min; Glucose 108 mg/dl (70-99); Magnesium 2.1 mg/dl (1.6-2.3); Potassium 4.1 mmol/L (3.5-5.1); Sodium 139 mmol/L (135-145); eGFR 44.23
[2025-02-09 04:19] LABS: Troponin I 0.706 ng/ml
--- NOTE | 2025-02-09 04:58 | PTCARENOTE ---
Critical Troponin this am 0.706 - down from previous 0.801. EKG obtained as ordered showing STEMI. Tonya SANDOVAL TT'd and after eval there were subtle changes but pt is still recovering from previous PR from January. Will continue to monitor.
[2025-02-09] MEDS: ATIVAN 1 MG PO (05:52)
--- NOTE | 2025-02-09 06:00 | PTCARENOTE ---
Pt pulling off O2 couple times this am. POX down into 80's. With increased work of breath. O2 placed back on 6L NC. POX up to 96%. Pt requesting fan. Fan placed for comfort. Very anxious. Groaning with each breath. Pt agreeable to wear BIPAP and prn
Ativan given. RT in with pt at present time. RT came out of room and stated pt refused to wear BIPAP. Currently resting comfortable. Will continue to monitor.
--- NOTE | 2025-02-09 06:51 | W.PN.UPDATE ---
Update Note
Progress Note Update
Troponin continues to trend down. Robitussin added for cough. Pt with SOB this am. Ativan given and bipap reapplied. Family updated last evening and will return this am.
[2025-02-09] MEDS: LOW STRENGTH ASPIRIN 81 MG PO (08:06)
[2025-02-09] MEDS: VIBRAMYCIN 100 MG PO ×2 (08:06→20:09)
[2025-02-09] MEDS: PROSCAR 5 MG PO (08:06)
[2025-02-09] MEDS: PLAVIX 75 MG PO (08:06)
[2025-02-09] MEDS: PROTONIX 40 MG PO (08:06)
[2025-02-09] MEDS: VENTOLIN NEBULES 2.5 MG INH (08:46)
--- NOTE | 2025-02-09 08:58 | W.PN.CARDCBS ---
Today's Communication / Plan
-
Continues with respiratory distress which is likely multifactorial
Received urgent nebulizer treatment, morphine 1 mg IV, Lasix 40 mg IV, steroids
Chest b-sje-[id number] increased interstitial markings with patchy bibasilar airspace opacities greater on the right. Findings nonspecific but could represent interstitial edema, patchy bibasilar atelectasis, right lower lobe
pneumonia was also a consideration.
Bilateral venous ultrasound negative for DVT February 09, 2025
If creatinine continues to rise, he may benefit from consideration for right heart catheterization to aid in evaluation of his volume status
Previously was discharged on p.o. Lasix 20 mg Tuesday as during last admission, creatinine had bumped to 1.7 with diuresis and contrast administration
Urgent bedside echo Feb 09 2025 shows EF 30 to 35% overall unchanged from prior echoes with normal RV size and function
Continue medical therapy of likely non-OH troponin, peak 0.9 trending down (last troponin prior to discharge from last admission was 240)
With regards to recent PCI, cont DAPT with aspirin and Plavix given recent PCI, he was initially on Brilinta but transition due to shortness of breath to Plavix
Cont high intensity statin therapy
GDMT of cardiomyopathy as able.
Continue Coreg, but hold losartan with worsening cr. (Entresto is not covered by patient's insurance).
Consider addition of Farxiga, which has $0 co-pay, but hold off for now with increased cr
Consider addition of Aldactone but hold off for now with increased cr
Pt for pulm eval and CT chest, cont pulm toilet including steroids and empiric abx as per primary service and pulmonary
Impression / Plan
-
.
Primary Matrix Inspector: Dr. Tere Lombardi
Impression:
Presentation with likely multifactorial dyspnea
Acute hypoxic respiratory failure
Acute HFrEF
CAD
s/p acute anterior STEMI with peak troponin 326 01/27/2025
s/p 2.5 mm Red MERYL to the ostial to mid LAD, residual [employer] RCA and ALEXEY-3 flow in the Circ and LAD at end of case 01/27/2025
ICM EF 35-40% by v-gram 01/27/25, 35% by echo 01/29/25
Elevated troponin, peak 0.9 trending down (last troponin prior to discharge from last admission was 240)
Acute on recently elevated creatinine
HTN
Hypercholesterolemia
Reported h/o valvular heart disease and evidence of MR at time of cath 01/27/25
Witnessed BARTOLOME without h/o BARTOLOME
intolerant to attempts at CPAP and BiPAP 01/27/25 into 01/28/25
Echo January 28, 2025: EF 35%, akinesis of the mid inferoseptum, apical septum and apex with hypokinesis of the mid inferior wall and severe hypokinesis of the mid anterior wall, mod eccentric MR, mild peak/mean 29/15 mmHg and mild to mod aortic
regurgitation, mild TR with PAP 58 mmHg
Limited echo January 31, 2025: EF 35%, akinesis of mid inferoseptum and inferior wall, apical septum and apex, hypokinesis of distal anterior wall
Plan:
Patient with admission for STEMI resulting in LAD PCI 01/27 - 02/02/2025, ischemic CM, now presents back with worsening shortness of breath since discharge
Continues with respiratory distress which is likely multifactorial
Received urgent nebulizer treatment, morphine 1 mg IV, Lasix 40 mg IV, steroids
Chest l-yhc-daehekr increased interstitial markings with patchy bibasilar airspace opacities greater on the right. Findings nonspecific but could represent interstitial edema, patchy bibasilar atelectasis, right lower lobe
pneumonia was also a consideration.
Bilateral venous ultrasound negative for DVT February 09, 2025
If creatinine continues to rise, he may benefit from consideration for right heart catheterization to aid in evaluation of his volume status
Previously was discharged on p.o. Lasix 20 mg Tuesday as during last admission, creatinine had bumped to 1.7 with diuresis and contrast administration
Urgent bedside echo Feb 09 2025 shows EF 30 to 35% overall unchanged from prior echoes with normal RV size and function
Continue medical therapy of likely non-OH troponin, peak 0.9 trending down (last troponin prior to discharge from last admission was 240)
With regards to recent PCI, cont DAPT with aspirin and Plavix given recent PCI, he was initially on Brilinta but transition due to shortness of breath to Plavix
Cont high intensity statin therapy
GDMT of cardiomyopathy as able.
Continue Coreg, but hold losartan with worsening cr. (Entresto is not covered by patient's insurance).
Consider addition of Farxiga, which has $0 co-pay, but hold off for now with increased cr
Consider addition of Aldactone but hold off for now with increased cr
Pt for pulm eval and CT chest, cont pulm toilet including steroids and empiric abx as per primary service and pulmonary
Discussed with [id number] at bedside and nursing and primary service
Outpatient cardiac follow-up is currently scheduled for February 19, 2025
Progress Note - Matrix Inspector
Subjective
Date of Service: February 09, 2025
Patient seen and examined, he is in moderate distress complaining of shortness of breath. No chest pain
Objective
Labs:
02/09/25 03:27
02/09/25 03:27
Labs
Hgb 10.8 g/dL (13.0-18.0) L 02/09/25 03:27
Hct 33.8 % (39.0-52.0) L 02/09/25 03:27
Plt Count 275 10^3/uL (130-400) 02/09/25 03:27
PT 15.4 Sec (11.4-14.6) H 02/08/25 08:
INR 1.19 02/08/25 08:26
APTT 31.0 Sec (23.4-35.0) 02/08/25 08:26
Sodium 139 mmol/L (135-145) 02/09/25 03:27
Potassium 4.1 mmol/L (3.5-5.1) 02/09/25 03:27
BUN 31 mg/dl (9-20) H 02/09/25 03:27
Creatinine 1.5 mg/dL (0.7-1.3) H 02/09/25 03:27
Glucose 108 mg/dl (70-99) H 02/09/25 03:27
Troponins
02/08/25 02/08/25 02/08/25
08: 15:54 21:43
Troponin I 0.947 H* 0.882 H* 0.801 H*
02/09/25
03:27
Troponin I 0.706 H*
Vital Signs and I&O:
Vital Signs
Temp Pulse Resp BP Pulse Ox
97.5 F 67 24 151/75 98
02/09/25 07:00 02/09/25 08:51 02/09/25 08:51 02/09/25 06:00 02/09/25 08:51
Vital Signs
Temp Pulse Resp BP Pulse Ox
97.5 F 67 24 151/75 98
02/09/25 07:00 02/09/25 08:51 02/09/25 08:51 02/09/25 06:00 02/09/25 08:51
Intake & Output
02/07/25 02/08/25 02/09/25 02/10/25
06:59 06:59 06:59 06:59
Intake Total 100 / 100
Output Total 775 / 775
Balance -675 / -675
Physical Exam
Physical Exam
General: In moderate distress, AAOX3
Neck: Negative JVD
Heart: Regular, Negative S3 positive S1/S2, Negative S4, No murmur
Lungs: CTA b/l, negative wheezes/rales/rhonchi
Abd: Positive BS, NT/ND, neg rebound/rigidity/guarding
Ext: Negative cyanosis/clubbing/edema
Neuro: nonfocal
[2025-02-09] MEDS: LASIX 40 MG IV ×2 (09:04→16:20)
[2025-02-09] MEDS: MORPHINE SULFATE 1 MG IV (09:13)
--- NOTE | 2025-02-09 09:16 | PTCARENOTE ---
Received pt sleeping. Upon waking pt becoming tachypneic, RR 30's, 97% on 6L, anxious. LS very decreased w/ fine exp wheeze. Dr Macias notified. Neb and Lasix ordered & given, see MAR. Dr Leavitt at bedside to evaluate pt during this time. 1mg IV
Morphine ordered and given as well. DIL at bedside. POC updated. Will continue to monitor closely.
[2025-02-09] MEDS: COREG 6.25 MG PO ×2 (10:14→20:08)
[2025-02-09] MEDS: DECADRON 6 MG IV (10:26)
--- NOTE | 2025-02-09 11:23 | CON.PUL ---
Consultation
Consultation Request
Date/Time Consultation Requested: 02/09/2025-10:30 AM
Date/Time Consultation Performed: 02/09/2025-11 AM
Requesting Provider: Hospitalist
Performing Provider: Dr. Lamar
Reason for Consultation: Shortness of breath
Medical History
-
Chief Complaint: Shortness of breath
History of Present Illness:
89-year-old non-smoking male with a history of CAD, CHF, hypertension, hyperlipidemia, prediabetes who was recently discharged 02/02/2025 after STEMI found to have LAD occlusion treated with drug-eluting stent followed during that admission by
pulmonary for suspected sleep disordered breathing and was previously intolerant of CPAP and presented with increasing shortness of breath-pulmonary consulted for shortness of breath 02/09/2025. Patient is now off BiPAP and states his breathing is
somewhat improved. He has some mild mucus production and denies any chest pain, chest tightness, chest congestion, productive cough, abdominal pain, leg swelling or weakness.
Past Medical History
Past Medical History: None (Hypertension. Hyperlipidemia. CAD/stent. History CHF preserved EF. Mitral regurgitation. NSVT. Prediabetes.)
Social History
Tobacco: Non-smoker
Alcohol: Occasional
Drug: None
Personal:
Living: With Family
Occupational Exposures: No known asbestos exposure
Environmental Exposures: No known tuberculosis exposure
Family History
Family History: Reviewed & Not Pertinent (Mother with dementia)
Allergies / Home Medications
Allergies
Allergy/AdvReac Type Severity Reaction Status Date / Time
No Known Allergies Allergy Verified 02/08/25 08:02
Home Medications
�Medication �Instructions �Recorded �Confirmed �Last Taken �Type
finasteride 5 mg tablet 5 mg PO Q48H Urinary Issue 01/27/25 02/08/25 01/26/25 History
aspirin 81 mg chewable tablet 81 mg PO DAILY Heart 02/01/25 02/08/25 02/07/25 Rx
disease/condition 90 days #90 tabs
atorvastatin 40 mg tablet 40 mg PO QPM High cholesterol #90 02/01/25 02/08/25 02/07/25 Rx
tabs
carvedilol 6.25 mg tablet 6.25 mg PO BID Heart 02/01/25 02/08/25 02/07/25 Rx
disease/condition #180 tabs
clopidogrel 75 mg tablet 75 mg PO DAILY Heart 02/01/25 02/08/25 02/07/25 Rx
disease/condition #90 tabs
furosemide 20 mg tablet (Lasix) 20 mg PO MOWEFR Fluid 02/08/25 02/08/25 02/06/25 History
Retention/Swelling
lorazepam 0.5 mg tablet 1 mg PO HSPRN PRN anxiety 02/08/25 02/08/25 02/08/25 History
nitroglycerin 0.4 mg sublingual 0.4 mg sublingual [id number] PRN 02/08/25 02/08/25 Unknown History
tablet chest pain
pantoprazole 40 mg tablet,delayed 40 mg PO DAILY Gastrointestinal 02/08/25 02/08/25 02/07/25 History
release Issue
valsartan 160 mg tablet 160 mg PO DAILY Blood Pressure 02/08/25 02/08/25 02/07/25 History
Review of Systems
-
Unable to Obtain full review of systems at this time due to: Other (per HPI)
Vitals / Labs / Diagnostic Testing
Vital Signs
Temp Pulse Resp BP Pulse Ox
97.5 F 70 35 153/80 97
02/09/25 07:00 02/09/25 10:14 02/09/25 09:00 02/09/25 10:14 02/09/25 10:22
Lab Data
02/09/25 03:27
02/09/25 03:27
Microbiology
02/08/25 09:43 Blood/Venous Blood Culture - Preliminary
No Growth in 24 hours- Final report to follow
02/08/25 09:28 Blood/Venous Blood Culture - Preliminary
No Growth in 24 hours- Final report to follow
02/08/25 08:26 Nasal Swab Influenza Types A & B (GUS) - Final
Negative for Influenza A & B, NAAT
Negative results must be combined with clinical observations
and patient history.
Nucleic Acid Amplification test (NAAT)performed on the
[employer] platform.
Diagnostic Testing:
Physical Exam
-
Exam:
well-nourished and well-developed in no apparent distress
HEENT-atraumatic, normocephalic
Neck-supple, no JVD, no bruit
Heart-regular rate and rhythm-no murmurs, rubs or gallops
Chest-clear to auscultation, no wheezes, crackles
Back-no tenderness
Abdomen-soft, nontender, nondistended, no hepatosplenomegaly
Extremities-no cyanosis, clubbing, edema and good peripheral pulses
Integument-intact, no rashes, lesions or ecchymosis
Neurology-alert and oriented, nonfocal motor and sensory exam
Assessment
-
89-year-old non-smoking male with a history of CAD, CHF, hypertension, hyperlipidemia, prediabetes who was recently discharged 02/02/2025 after STEMI found to have LAD occlusion treated with drug-eluting stent followed during that admission by
pulmonary for suspected sleep disordered breathing and was previously intolerant of CPAP and presented with increasing shortness of breath-pulmonary consulted for shortness of breath 02/09/2025.
Hypoxemia-multifactorial
CHF reduced EF
Pneumonia
REEMA
Leukocytosis
Zetbsw-wizzvsfscm-gwslzgxokn 10.8
Mild hyperglycemia
Mild elevation in troponin
Nocturnal hypoxemia on room air continuous overnight oximetry 01/29/25-32 minutes less than 89% saturation, renae 82%
Conditions present prior to admission:
Hypertension.
Hyperlipidemia.
CAD/stent.
History CHF preserved EF.
Mitral regurgitation.
NSVT.
Prediabetes.
BPH
Plan
Respiratory decompensation likely multifactorial including underlying CHF reduced EF, possible pneumonia and less likely thromboembolic disease
Supplemental oxygen as needed
Aspiration precautions
BiPAP or noninvasive ventilation as needed
Nebulizers if needed-currently not bronchospastic though nursing reports wheezing this morning
Received 2 doses of steroids
Intubated mechanically ventilate this patient is DNR if respiratory status further deteriorates
CT chest with PE protocol-pending
Lower extremity ultrasound-pending
Diuresis as tolerated
Monitor renal function, electrolytes, intake/output, lower extremity edema and weight
Replace electrolytes as needed
Cardiology following-correspondence reviewed
Repeat echocardiogram pending
Check cultures
Sputum culture if possible
Empiric antibiotics-Zosyn and doxycycline initiated
Consider procalcitonin-may not be as accurate with REEMA
If oxygenation improves and chest x-ray clears with diuresis and consider discontinuation of antibiotics
DVT prophylaxis-on Lovenox
GI prophylaxis-on pantoprazole
Nutrition
Early mobilization
Outpatient sleep disordered breathing follow-up
Diagnostic data:
Chest x-ray 01/29/2025-extremely low lung volumes, right basilar discoid atelectasis
Chest x-ray 02/08/2025-NAD, diffuse increased interstitial markings with patchy bibasilar airspace opacification may represent interstitial edema with basilar atelectasis and right lower lobe pneumonia is also considered a possibility
Echocardiogram 01/31/2025-EF 35%, akinesis of mid inferoseptal and inferior wall, apical septum and apex
Data Reviewed
-
EKG: Report reviewed by me
Radiology: Image personally visualized and interpreted and Report reviewed by me
CT Scan: Report reviewed by me
Medical Tests (Nuc Med, Echo etc): Report reviewed by me
Labs: Labs reviewed by me
Old Records: Reviewed
Total Time Spent with Patient (in minutes): 50
--- NOTE | 2025-02-09 11:29 | W.PN.HOSP.TC ---
Today's Communication/Plan
-
CT Chest
Trial of 1 dose of steroids to see if symptoms get better. If symptoms are better we will add more IV steroids
Pulmonary consultation
Assessment / Plan
Assessment / Plan
89-year-old male was admitted to [facility] on and discharged on 02/02/2025. He had a STEMI. He presented with abdominal and chest discomfort and got cardiac catheterization. He was found to have a mid LAD occlusion treated with
drug-eluting stent. He was initially started on Brilinta then changed to Plavix due to concerns of shortness of breath. Patient's creatinine was slightly elevated and Lasix was decreased and changed to p.o. Patient also has chronic total
occlusion of her RCA. Pulmonary also followed the patient for suspicion of sleep disordered breathing. He was previously intolerant of PAP therapy and was not using it at home. He was also prescribed Ativan after discharge for anxiety initially
started with 0.25 then went up to 1 mg at nighttime. Son states that patient feels that he cannot catch breath at times and opens the window gasping for air and he leaves the window open in the cold. Family usually comforts him for 20 minutes and
he calms down. Shortness of breath has been getting worse. No fever
Echo 01/31/2025-EF 35%. Normal LV size with moderately reduced systolic function. Akinesis of the mid inferoseptum and inferior wall, apical septum and apex. Hypokinesis of the distal anterior wall. RV size and systolic function are within
normal limits.
Chest x-rtx-omrqhlg increased interstitial markings with patchy bibasilar airspace opacities greater on the right. Findings nonspecific but could represent interstitial edema, patchy bibasilar atelectasis, right lower lobe pneumonia was also a
consideration.
Patient is off of BiPAP. He appears to be slightly short of breath with prolonged expiratory phase
Cardiovascular system S1-S2 appreciated
Chest bilateral rales appreciated
Abdomen soft and nontender
No pedal edema
# Acute hypoxic respiratory failure
Likely secondary to combination of factors
COVID neg
CHF, pneumonia
He does not look overtly fluid overloaded and creatinine is also trending up.
Of BIPAP-on nasal cannula oxygen
I would proceed with CT of the chest
Interstitial changes noted on the k-tyj-nvtjhuk a dose of steroid, if this helps his breathing will place patient on every 6 hours Decadron
Request pulmonary evaluation
Repeat echo being done today-no change since the prior echo
# Pneumonia
Type unclear. Check sputum cultures if possible
Speech evaluation to rule out aspiration
Treat with Zosyn and doxycycline.
# Acute on chronic HFrEF
Ischemic cardiomyopathy
BNP [id number]
Intake output charting
Daily weights
Cardiology following
# Recent STEMI with LAD stent
Continue aspirin Plavix statin, Coreg. Hold valsartan
Follow troponin
# History of NSVT
# REEMA- follow creat
# Hyperlipidemia-continue statin
# Enlarged prostate-continue finasteride
# DVT prophylaxis-Lovenox
# Full code
Discussed with patient's DIL at bedside in detail
Discussed with cardiology
Discussed with nursing
Difficult situation as it is not completely clear what is driving his shortness of breath and hypoxia
Time spent more than 50 minutes
Anticipated Discharge: > 48 hours
Subjective/Interval History
-
Date of Service: February 09, 2025
Objective Data
-
Labs:
Laboratory Results
02/09/25
03:27
WBC 12.3 H
Hgb 10.8 L
Hct 33.8 L
Plt Count 275
Sodium 139
Potassium 4.1
Chloride 107
Carbon Dioxide 26
BUN 31 H
Creatinine 1.5 H
Glucose 108 H
Calcium 8.3 L
Vital Signs:
Vital Signs
Temp Pulse Resp BP Pulse Ox
97.5 F 70 35 153/80 97
02/09/25 11:00 02/09/25 10:14 02/09/25 09:00 02/09/25 10:14 02/09/25 10:22
I&O
02/08/25 02/09/25 02/10/25
06:59 06:59 06:59
Intake Total 100 / 100 290 / 290
Output Total 775 / 775
Balance -675 / -675 290 / 290
--- NOTE | 2025-02-09 13:00 | PTCARENOTE ---
6mg IV Decadron given. 1hr after pt appearing more comfortable. RR 20's 97% on 6L. No wheeze auscultated. ECHO completed, report pending. Awaiting Pulmonary consult.
--- NOTE | 2025-02-09 13:43 | PTCARENOTE ---
Called CT to check on when pt will come down. CT reports no plan to bring him down as he is routine scan. Dr Macias notified, ordered changed to URGENT. Will call CT back to arrange scan.
[2025-02-09] MEDS: LIPITOR 40 MG PO (17:13)
[2025-02-09] MEDS: LOVENOX 30 MG SC (17:13)
[2025-02-10] VITALS (12 sets, daily range): BP systolic 91–152; BP diastolic 49–103; BMI 24.4
[2025-02-10 03:47] LABS: Hematocrit 33.3 % (39.0-52.0); Hemoglobin 11.2 g/dL (13.0-18.0); Mean Corp Hgb Conc. 33.6 g/dL (33.0-37.0); Mean Corpuscular Volume 89.3 fL (80.0-94.0); Platelet Count 292 10^3/uL (130-400); Red Cell Dist. Width 14.8 % (11.5-14.5)
[2025-02-10 04:06] LABS: Blood Urea Nitrogen 34 mg/dl (9-20); Calcium 8.9 mg/dl (8.4-10.2); Carbon Dioxide 26 mmol/L (22-30); Chloride 105 mmol/L (98-107); Estimated Creatinine Clearance 28 ml/min; Glucose 122 mg/dl (70-99); Potassium 3.9 mmol/L (3.5-5.1); Sodium 137 mmol/L (135-145); eGFR 35.54
[2025-02-10] MEDS: ZOSYN 50 IV ×4 (04:24→21:14)
[2025-02-10] MEDS: FLUSH (NSS) 2 FLUSH IV (04:24)
--- NOTE | 2025-02-10 06:24 | PTCARENOTE ---
Pt slept well overnight. Continues on 6L NC pox 93-98%. Afebrile. SB/SR/PAC/PQT on CM. No complaints of pain or discomfort. With any movement pt with OLIVA. Occasional moist slightly productive cough. Diminished throughout. No change from previous
assessment. Using urinal at bedside. Turns self in bed. Call rich remains within reach. Will continue to monitor.
--- NOTE | 2025-02-10 08:11 | W.PN.CARDCBS ---
Today's Communication / Plan
-
Acute respiratory failure improved with steroids and pulm toilet.
Consider chest u/s for possible thoracentesis of b/l pleural effusions
CT chest February 09, 2025: Findings suggesting moderate bilateral lower lobe and mild THERESE pneumonia. Moderate bilateral pleural effusions.Mild bibasilar consolidation likely atelectasis.
Chest x-ray February 08, 2025-diffuse increased interstitial markings with patchy bibasilar airspace opacities greater on the right. Findings nonspecific but could represent interstitial edema,
patchy bibasilar atelectasis, right lower lobe pneumonia was also a consideration.
Bilateral venous ultrasound negative for DVT February 09, 2025
Hold further IV lasix after 40 mg IV AM Feb 10 and continue to follow cr which continues to rise. He is within 1 lb of his wt at last discharge 10 days ago.
As creatinine continues to rise, he may benefit from consideration for right heart catheterization to aid in evaluation of his volume status, however he is clinically improving so will defer this for now and continue to monitor volume status.
Previously was discharged on p.o. Lasix 20 mg Tuesday as during last admission, creatinine had bumped to 1.7 with diuresis and contrast administration
Urgent bedside echo Feb 09 2025 shows EF 30 to 35% overall unchanged from prior echoes with normal RV size and function
Continue medical therapy of likely non-KS troponin, peak 0.9 trending down (last troponin prior to discharge from last admission was 240)
With regards to recent PCI, cont DAPT
Impression / Plan
-
.
Primary Vehicle Calibration Engineer: Dr. Tere Lombardi
Impression:
Presentation with likely multifactorial dyspnea
Acute hypoxic respiratory failure
Acute HFrEF
CAD
s/p acute anterior STEMI with peak troponin 326 01/27/2025
s/p 2.5 mm Red MERYL to the ostial to mid LAD, residual [employer] RCA and ALEXEY-3 flow in the Circ and LAD at end of case 01/27/2025
ICM EF 35-40% by v-gram 01/27/25, 35% by echo 01/29/25
Elevated troponin, peak 0.9 trending down (last troponin prior to discharge from last admission was 240)
Acute on recently elevated creatinine
HTN
Hypercholesterolemia
Reported h/o valvular heart disease and evidence of MR at time of cath 01/27/25
Witnessed BARTOLOME without h/o BARTOLOME
intolerant to attempts at CPAP and BiPAP 01/27/25 into 01/28/25
Echo January 28, 2025: EF 35%, akinesis of the mid inferoseptum, apical septum and apex with hypokinesis of the mid inferior wall and severe hypokinesis of the mid anterior wall, mod eccentric MR, mild peak/mean 29/15 mmHg and mild to mod aortic
regurgitation, mild TR with PAP 58 mmHg
Limited echo January 31, 2025: EF 35%, akinesis of mid inferoseptum and inferior wall, apical septum and apex, hypokinesis of distal anterior wall
Plan:
Patient with admission for STEMI resulting in LAD PCI 01/27 - 02/02/2025, ischemic CM, now presents back with worsening shortness of breath since discharge
Acute respiratory failure improved with steroids and pulm toilet.
Consider chest u/s for possible thoracentesis of b/l pleural effusions
CT chest February 09, 2025: Findings suggesting moderate bilateral lower lobe and mild THERESE pneumonia. Moderate bilateral pleural effusions.Mild bibasilar consolidation likely atelectasis.
Chest x-ray February 08, 2025-diffuse increased interstitial markings with patchy bibasilar airspace opacities greater on the right. Findings nonspecific but could represent interstitial edema,
patchy bibasilar atelectasis, right lower lobe pneumonia was also a consideration.
Bilateral venous ultrasound negative for DVT February 09, 2025
Hold further IV lasix after 40 mg IV AM Nov 9 and continue to follow cr which continues to rise. He is within 1 lb of his wt at last discharge 10 days ago.
As creatinine continues to rise, he may benefit from consideration for right heart catheterization to aid in evaluation of his volume status, however he is clinically improving so will defer this for now and continue to monitor volume status.
Previously was discharged on p.o. Lasix 20 mg Tuesday as during last admission, creatinine had bumped to 1.7 with diuresis and contrast administration
Urgent bedside echo Feb 09 2025 shows EF 30 to 35% overall unchanged from prior echoes with normal RV size and function
Continue medical therapy of likely non-KS troponin, peak 0.9 trending down (last troponin prior to discharge from last admission was 240)
With regards to recent PCI, cont DAPT with aspirin and Plavix given recent PCI, he was initially on Brilinta but transition due to shortness of breath to Plavix
Cont high intensity statin therapy
GDMT of cardiomyopathy as able.
Continue Coreg, but hold losartan with worsening cr. (Entresto is not covered by patient's insurance).
Consider addition of Farxiga, which has $0 co-pay, but hold off for now with increased cr
Consider addition of Aldactone but hold off for now with increased cr
Cont pulm toilet including steroids and empiric abx as per primary service and pulmonary
Discussed with pulm and primary service
Outpatient cardiac follow-up is currently scheduled for February 19, 2025
Progress Note - Vehicle Calibration Engineer
Subjective
Date of Service: February 10, 2025
Pt seen and examined. No complaints. No chest pain or shortness of breath.
Objective
Labs:
02/10/25 03:24
02/10/25 03:24
Labs
Hgb 11.2 g/dL (13.0-18.0) L 02/10/25 03:24
Hct 33.3 % (39.0-52.0) L 02/10/25 03:24
Plt Count 292 10^3/uL (130-400) 02/10/25 03:24
PT 15.4 Sec (11.4-14.6) H 02/08/25 08:26
INR 1.19 02/08/25 08:26
APTT 31.0 Sec (23.4-35.0) 02/08/25 08:26
Sodium 137 mmol/L (135-145) 02/10/25 03:24
Potassium 3.9 mmol/L (3.5-5.1) 02/10/25 03:24
BUN 34 mg/dl (9-20) H 02/10/25 03:24
Creatinine 1.8 mg/dL (0.7-1.3) H 02/10/25 03:24
Glucose 122 mg/dl (70-99) H 02/10/25 03:24
Troponins
02/08/25 02/08/25 02/08/25
08: 15:54 21:43
Troponin I 0.947 H* 0.882 H* 0.801 H*
02/09/25
03:27
Troponin I 0.706 H*
Vital Signs and I&O:
Vital Signs
Temp Pulse Resp BP Pulse Ox
97.7 F 52 16 110/57 97
02/10/25 07:00 02/10/25 06:00 02/10/25 06:00 02/10/25 06:00 02/10/25 06:00
Vital Signs
Temp Pulse Resp BP Pulse Ox
97.7 F 52 16 110/57 97
02/10/25 07:00 02/10/25 06:00 02/10/25 06:00 02/10/25 06:00 02/10/25 06:00
Intake & Output
02/08/25 02/09/25 02/10/25 02/11/25
06:59 06:59 06:59 06:59
Intake Total 100 / 100 580 / 580
Output Total 775 / 775 950 / 950
Balance -675 / -675 -370 / -370
Physical Exam
Physical Exam
General: No acute distress, AAOX3
Neck: Negative JVD
Heart: Regular, Negative S3 positive S1/S2, Negative S4, No murmur
Lungs: CTA b/l, negative wheezes/rales/rhonchi
Abd: Positive BS, NT/ND, neg rebound/rigidity/guarding
Ext: Negative cyanosis/clubbing/edema
Neuro: nonfocal
[2025-02-10] MEDS: LASIX IV (08:37)
[2025-02-10] MEDS: PROTONIX 40 MG PO (08:37)
[2025-02-10] MEDS: PLAVIX 75 MG PO (08:38)
[2025-02-10] MEDS: LOW STRENGTH ASPIRIN 81 MG PO (08:38)
[2025-02-10] MEDS: COREG 6.25 MG PO ×2 (08:38→20:16)
[2025-02-10] MEDS: VIBRAMYCIN 100 MG PO ×2 (08:38→20:16)
--- NOTE | 2025-02-10 09:34 | PTCARENOTE ---
pt aaox3. states no pain and breathing feels better. o2 reduced to 2lnc. 97%. breath sounds diminished. pt oob 1 person assist to bathroom. pt son at bedside. reviewed plan of care and pt condition with son and pt.
--- NOTE | 2025-02-10 10:51 | W.PN.HOSP.TC ---
Today's Communication/Plan
-
Short course of steroid trial
PFTs as outpatient
Hold Lasix today-patient needs more diuresis once renal function improves
Check urinalysis and urine sodium
Consider thoracentesis if okay with pulmonary
Assessment / Plan
Assessment / Plan
89-year-old male was admitted to [facility] on and discharged on 02/02/2025. He had a STEMI. He presented with abdominal and chest discomfort and got cardiac catheterization. He was found to have a mid LAD occlusion treated with
drug-eluting stent. He was initially started on Brilinta then changed to Plavix due to concerns of shortness of breath. Patient's creatinine was slightly elevated and Lasix was decreased and changed to p.o. Patient also has chronic total
occlusion of her RCA. Pulmonary also followed the patient for suspicion of sleep disordered breathing. He was previously intolerant of PAP therapy and was not using it at home. He was also prescribed Ativan after discharge for anxiety initially
started with 0.25 then went up to 1 mg at nighttime. Son states that patient feels that he cannot catch breath at times and opens the window gasping for air and he leaves the window open in the cold. Family usually comforts him for 20 minutes and
he calms down. Shortness of breath has been getting worse. No fever
Patient lost his 6 months ago to cancer. He lives with his son now
Echo 02/09/2025-normal LV size. EF 30 to 35%. LV-anteroseptum, apex, entire anterior wall, anterior inferior wall, basal and mid anterolateral wall and apical lateral segment are abnormal. Mild to moderate AAS. Mild to moderate MR. Mild to
moderate TR. PA pressure 53 mmHg.
Chest t-myo-sliujip increased interstitial markings with patchy bibasilar airspace opacities greater on the right. Findings nonspecific but could represent interstitial edema, patchy bibasilar atelectasis, right lower lobe pneumonia was also a
consideration.
CT of the chest-moderate bilateral lower lobe and mild left upper lobe pneumonia. Moderate bilateral pleural effusions. Mild bibasilar consolidation like atelectasis.
Ultrasound of the chest-bilateral moderate-sized pleural effusions
Patient is off of BiPAP. He appears to be slightly short of breath with prolonged expiratory phase
Cardiovascular system S1-S2 appreciated, systolic murmur at apex and right heart border
Chest bilateral rales appreciated, decreased breath sounds at bases
Abdomen soft and nontender
No pedal edema
# Acute hypoxic respiratory failure
Likely secondary to combination of factors
COVID neg
CHF, pneumonia
CT of the chest as above
Speech to evaluate to rule out aspiration
Pt also improved with steroids yesterday-unclear if he has a reactive airway component. Continue short course of steroid trial. Patient needs PFTs as outpatient
Of BIPAP-on nasal cannula oxygen
He has bilateral pleural effusions however creatinine is trending up therefore hold off on Lasix today.
If pulmonary also agrees-patient may benefit from thoracentesis
Once creatinine is better push more diuresis
Cardiology and pulmonary consults appreciated
# Pneumonia
Type unclear. Check sputum cultures if possible
Speech evaluation to rule out aspiration
Treat with Zosyn and doxycycline.
# Acute on chronic HFrEF
Ischemic cardiomyopathy
BNP 75249
Intake output charting
Daily weights
Holding valsartan secondary to REEMA. Continue Coreg
Eventually may benefit from SGLT2 inhibitors
# Recent STEMI with LAD stent
Continue aspirin Plavix statin, Coreg. Hold valsartan
Follow troponin
# History of NSVT
# REEMA- follow creat. Hold valsartan and Lasix today
# Hyperlipidemia-continue statin
# Enlarged prostate-continue finasteride
# Lifelong non-smoker
# DVT prophylaxis-Lovenox
# Full code
Discussed with patient's son at bedside in detail
Discussed with pulmonary
Discussed with nursing
Time spent more than 50 minutes
Anticipated Discharge: > 48 hours
Subjective/Interval History
-
Date of Service: February 10, 2025
Objective Data
-
Labs:
Laboratory Results
02/10/25
03:24
WBC 14.5 H
Hgb 11.2 L
Hct 33.3 L
Plt Count 292
Sodium 137
Potassium 3.9
Chloride 105
Carbon Dioxide 26
BUN 34 H
Creatinine 1.8 H
Glucose 122 H
Calcium 8.9
Vital Signs:
Vital Signs
Temp Pulse Resp BP Pulse Ox
97.7 F 52 16 141/103 97
02/10/25 07:00 02/10/25 06:00 02/10/25 06:00 02/10/25 08:38 02/10/25 09:30
I&O
02/09/25 02/10/25 02/11/25
06:59 06:59 06:59
Intake Total 100 / 100 580 / 580
Output Total 775 / 775 950 / 950
Balance -675 / -675 -370 / -370
--- NOTE | 2025-02-10 11:11 | W.PN.PUL.V3 ---
Today's Communication / Plan
-
Diuresis
Antibiotics
Consider thoracentesis
Prednisone taper
Wean oxygen
Increase activity
Assessment
-
89-year-old non-smoking male with a history of CAD, CHF, hypertension, hyperlipidemia, prediabetes who was recently discharged 02/02/2025 after STEMI found to have LAD occlusion treated with drug-eluting stent followed during that admission by
pulmonary for suspected sleep disordered breathing and was previously intolerant of CPAP and presented with increasing shortness of breath-pulmonary consulted for shortness of breath 02/09/2025.
Hypoxemia-multifactorial
CHF reduced EF
Pneumonia
REEMA
Leukocytosis
Fafpfg-euyarprajt-onjylfhbrz 10.8
Mild hyperglycemia
Mild elevation in troponin
Nocturnal hypoxemia on room air continuous overnight oximetry 01/29/25-32 minutes less than 89% saturation, renae 82%
Conditions present prior to admission:
Hypertension.
Hyperlipidemia.
CAD/stent.
History CHF preserved EF.
Mitral regurgitation.
NSVT.
Prediabetes.
BPH
Plan
Respiratory decompensation likely multifactorial including underlying CHF reduced EF, possible pneumonia and less likely thromboembolic disease-unclear if steroids helped-very quick improvement after initiation
Supplemental oxygen as needed-currently weaned to 2 L
Aspiration precautions
BiPAP or noninvasive ventilation as needed
Nebulizers if needed-currently not bronchospastic though nursing reports wheezing this morning
Received 2 doses of steroids-changed to prednisone with fairly rapid taper
Intubated mechanically ventilate this patient is DNR if respiratory status further deteriorates
CT chest with PE protocol-02/09/2025-moderate bilateral lower lobe and mid left upper lobe pneumonia, moderate bilateral pleural effusions
Lower extremity ultrasound-02/09/2025-no evidence for DVT
Chest ultrasound 02/10/2025-bilateral moderate-sized pleural effusions-if effusions do not improve with diuresis then reasonable to perform therapeutic/diagnostic thoracentesis-reviewing scans the effusions are similar size on both sides
Diuresis continues as tolerated
Monitor renal function, electrolytes, intake/output, lower extremity edema and weight
Replace electrolytes as needed
Cardiology following-correspondence reviewed
Repeat echocardiogram 02/09/2025-EF 30-35%, moderate aortic stenosis, moderate mitral regurgitation
Cultures reviewed
MRSA screen negative
Blood culture negative
Influenza negative
Sputum culture-unable to produce
Empiric antibiotics-Zosyn and doxycycline initiated-finite course
Consider procalcitonin-may not be as accurate with REEMA
If oxygenation improves and chest x-ray clears with diuresis and consider discontinuation of antibiotics
DVT prophylaxis-on Lovenox
GI prophylaxis-on pantoprazole
Nutrition
Early mobilization
Reviewed with nursing, cardiology, son at the bedside and primary team
Outpatient sleep disordered breathing follow-up
Diagnostic data:
Chest x-ray 01/29/2025-extremely low lung volumes, right basilar discoid atelectasis
Chest x-ray 02/08/2025-NAD, diffuse increased interstitial markings with patchy bibasilar airspace opacification may represent interstitial edema with basilar atelectasis and right lower lobe pneumonia is also considered a possibility
Echocardiogram 01/31/2025-EF 35%, akinesis of mid inferoseptal and inferior wall, apical septum and apex
Subjective Data
-
Date of Service:
Date of Service: February 10, 2025
Chief Complaint: Pulmonary Follow Up and Dyspnea Follow Up
Subjective:
Feels much improved today, less oxygen requirements, no complaints of chest pain, chest tightness, productive cough or abdominal pain-son was at the bedside and helped with translation
Review of Systems
General: Other (Per HPI)
Objective Data
Data Reviewed
Vital Signs / I&O:
Vital Signs
Temp Pulse Resp BP Pulse Ox
97.7 F 52 16 141/103 97
02/10/25 07:00 02/10/25 06:00 02/10/25 06:00 02/10/25 08:38 02/10/25 09:30
Intake and Output
02/09/25 02/10/25 02/11/25
06:59 06:59 06:59
Intake Total 100 / 100 580 / 580
Output Total 775 / 775 950 / 950
Balance -675 / -675 -370 / -370
SaO2: 97
Nasal Cannula flow liters per minute: 2
Physical Exam
General: Respiratory Distress (n) and Comfortable
HEENT: Normocephalic, Anicteric and Moist Mucous Membranes
Cardiovascular: Regular Rhythm and Murmur
Respiratory: Wheeze (n), Crackles (Few basilar), Rhonchi (n), Non-Labored Respirations, Accessory Resp Muscle Use (n) and Stridor
GI: Soft, Non Distended and Non Tender
Neurology: Awake, Alert and No Motor Deficits
Skin: Warm, Good Color, Cyanosis (n), Jaundice (n) and Rash (n)
Labs/Micro/Reports
Lab Data
02/10/25 03:24
02/10/25 03:24
Microbiology
02/08/25 09:43 Blood/Venous Blood Culture - Preliminary
No Growth in 48 hours- Final report to follow
02/08/25 09:28 Blood/Venous Blood Culture - Preliminary
No Growth in 48 hours- Final report to follow
02/08/25 15:54 Nose MRSA Screen - Final
No Methicillin Resistant Staphylococcus aureus isolated.
02/08/25 08:26 Nasal Swab Influenza Types A & B (GUS) - Final
Negative for Influenza A & B, NAAT
Negative results must be combined with clinical observations
and patient history.
Nucleic Acid Amplification test (NAAT)performed on the
[employer] platform.
--- NOTE | 2025-02-10 11:15 | PTOTSP ---
Speech Therapy Evaluation
Pt is at an increased risk of aspiration given history of CHF compounded by recent respiratory failure and dependency on oxygen. Imaging revealed moderate bilateral lower lobe and mid left upper lobe PNA. Recent chest ultrasound noted bilateral
effusions. Pt managed trials of regular solids with no overt s/sx of aspiration, clear vocal quality following all trials, RR and O2 levels remained stable. Cannot rule out silent aspiration at bedside. Pt with elevated WBC 14.5.
Recommendation:
1. IDDSI 7 Regular solids, IDDSI 0 thin liquids
2. Medication as best tolerated
3. Standard aspiration precautions
4. MEDICATION NURSE to follow, likely briefly
[2025-02-10] MEDS: DELTASONE 50 MG PO (11:24)
[2025-02-10] MEDS: PEPCID 20 MG PO (11:24)
[2025-02-10 13:17] LABS: Urine Character Clear (Clear)
[2025-02-10 15:17] LABS: Urine Red Blood Cell 0-2 /HPF (0-2); Urine Urothelial Cell 0-2 /LPF (FEW)
[2025-02-10] MEDS: LIPITOR 40 MG PO (18:02)
[2025-02-10] MEDS: LOVENOX 30 MG SC (18:02)
[2025-02-10] MEDS: ROBITUSSIN DM 10 ML PO (20:16)
--- NOTE | 2025-02-10 21:00 | PTCARENOTE ---
Pt received awake alert and oriented. Pt able to make needs known. NSR on monitor. Pt OLIVA and orthopneic. Remains on O2 4l NC with sats >95%. Asked for cough med-med with robitussin DM. Voiding in urinal. Assessment as charted.
[2025-02-11] VITALS (20 sets, daily range): BP systolic 68–180; BP diastolic 44–99; BMI 24.7
[2025-02-11] MEDS: ZOSYN 50 IV (04:14)
[2025-02-11 05:37] LABS: Blood Urea Nitrogen 40 mg/dl (9-20); Calcium 8.8 mg/dl (8.4-10.2); Carbon Dioxide 29 mmol/L (22-30); Chloride 103 mmol/L (98-107); Estimated Creatinine Clearance 26 ml/min; Glucose 111 mg/dl (70-99); Potassium 3.6 mmol/L (3.5-5.1); Sodium 140 mmol/L (135-145); eGFR 33.30
--- NOTE | 2025-02-11 05:37 | PTCARENOTE ---
Slept well during night. Bradycardic into 40s at times when sleeping. Assessment unchanged.
[2025-02-11] MEDS: PROTONIX 40 MG PO (07:29)
[2025-02-11] MEDS: COREG PO (07:30)
[2025-02-11] MEDS: PROSCAR 5 MG PO (07:30)
[2025-02-11] MEDS: DELTASONE 40 MG PO (07:30)
[2025-02-11] MEDS: PLAVIX 75 MG PO (07:30)
[2025-02-11] MEDS: LOW STRENGTH ASPIRIN 81 MG PO (07:30)
[2025-02-11] MEDS: VIBRAMYCIN 100 MG PO ×2 (07:30→19:30)
[2025-02-11] MEDS: COREG 6.25 MG PO ×2 (08:31→19:30)
--- NOTE | 2025-02-11 08:37 | VNURNOTE ---
Chart reviewed. Patient is current with [facility]. Will continue to follow hospital course and DC plans.
--- NOTE | 2025-02-11 08:58 | W.PN.HOSP.TC ---
Addendum entered and electronically signed by Tab Hudson DO 02/11/25 16:06:
Sepsis due to pneumonia with organ dysfunction of Acute Hypoxic Respiratory Failure / REEMA -sepsis POA.
Original Note:
Today's Communication/Plan
-
Thoracentesis
Nephrology consult
Monitor renal function
Assessment / Plan
Assessment / Plan
Gen-AAOx3, NAD
HEENT-NC, AT, anicteric, clear oral mm
Neck-supple
CV-reg, no M, +S1/S2
Lungs-clear B/L
Abd-soft, NT, ND
Ext-no edema
Musculoskeletal-no cyanosis, clubbing
Skin-warm and dry
Neuro-grossly non-focal
Psych-calm, cooperative
Acute hypoxic respiratory failure -oxygenation currently stable on 3 L nasal cannula.
Likely secondary to combination of factors, including bilateral moderate-sized pleural effusions, possible pneumonia, atelectasis.
COVID, influenza neg
Speech consult noted, no evidence of overt aspiration. Cannot rule out silent aspiration. Recommendation for regular solids, thin liquids.
Pt also improved with steroids yesterday-unclear if he has a reactive airway component. Continue short course of steroid trial. Patient needs PFTs as outpatient
Off BIPAP-on nasal cannula oxygen
Community-acquired pneumonia
Type unclear. Check sputum cultures if possible
Treat with Zosyn and doxycycline.
Check urinary antigens.
Bilateral pleural effusions -unclear etiology. Thoracentesis requested by IR. Discussed with son.
Acute on chronic HFrEF
Ischemic cardiomyopathy
BNP 26983
Intake output charting
Daily weights, weight is down 5 kg since admission.
Holding valsartan secondary to REEMA. Continue Coreg
Eventually may benefit from SGLT2 inhibitors
Normocytic anemia -hemoglobin stable at 11.2. Etiology unclear. Monitor for now.
Hyponatremia -present on admission. Resolved.
Recent STEMI with LAD stent
Continue aspirin Plavix statin, Coreg. Hold valsartan
Follow troponin
History of NSVT
REEMA-unfortunately renal function deteriorating. Hold valsartan and Lasix today.
Creatinine up to 1.9 today, admission creatinine 1.4. Discharge creatinine on February 02 was 1.3.
Bladder scan 102 cc yesterday.
Consult nephrology.
Hyperlipidemia-continue statin
Enlarged prostate-continue finasteride
Lifelong non-smoker
DVT prophylaxis-Lovenox
Full code
Updated patient's son at the bedside.
Anticipated Discharge: > 48 hours
Subjective/Interval History
-
Date of Service: February 11, 2025
Patient seen and examined. Complaining of mild shortness of breath.
Objective Data
-
Labs:
Laboratory Results
02/11/25
04:58
Sodium 140
Potassium 3.6
Chloride 103
Carbon Dioxide 29
BUN 40 H
Creatinine 1.9 H
Glucose 111 H
Calcium 8.8
Vital Signs:
Vital Signs
Temp Pulse Resp BP Pulse Ox
97.5 F 65 17 163/90 97
02/11/25 08:13 02/11/25 08:31 02/11/25 04:00 02/11/25 08:31 02/11/25 06:00
I&O
02/10/25 02/11/25 02/12/25
06:59 06:59 06:59
Intake Total 580 / 580 500 / 500
Output Total 950 / 950 700 / 700
Balance -370 / -370 -200 / -200
Review of Systems
-
History Source: Patient
All other systems: Reviewed and negative
--- NOTE | 2025-02-11 10:18 | W.PN.CARDCBS ---
Addendum entered and electronically signed by Raphael Shoemaker MD 02/11/25 11:44:
I saw and examined the patient.
The TRANSPORTATION PROGRAM DIRECTOR or PA's note was reviewed and I agree with the note.
Comment: General: Well developed, well nourished in NAD.
Neck: Supple, no JVD, HJR, carotids +2 B/L, no bruits bilaterally.
Heart: Non displaced PMI, RRR, no murmurs, No S3, S4, no rubs.
Lungs: Scattered rhonchi
Extremities: No clubbing, cyanosis or edema bilaterally.
Neuro: Grossly nonfocal, awake, alert and oriented x3.
Volume status appears improved. Creatinine is increased to 1.9 and will hold IV Lasix. Will assess status post thoracentesis. He may need home oxygen. Updated patient's son at bedside and discussed with primary service in detail.
Original Note:
Today's Communication / Plan
-
Lasix IV is on hold due to REEMA
Await results and report from thoracentesis today, patient had moderate-sized B/L pleural effusions on chest U/S yesterday
Patient's son updated at bedside 02/11/2025 reviewed last admission and current admission and the current plan of care
Impression / Plan
-
PCP: Dr. Self
Primary Molding Utility Worker: Dr. Tere Lombardi
Impression:
Presentation with likely multifactorial dyspnea 02/08/2025
Acute hypoxic respiratory failure
Acute HFrEF
CAD
s/p acute anterior STEMI with peak troponin 326 01/27/2025
s/p 2.5 mm Red MERYL to the ostial to mid LAD, residual OIL FIELD CASER RCA and ALEXEY-3 flow in the Circ and LAD at end of case 01/27/2025
ICM EF 35-40% by v-gram 01/27/25, 35% by echo 01/29/25
Elevated troponin, peak 0.9 trending down (last troponin prior to discharge from last admission was 326)
REEMA
HTN
Hypercholesterolemia
Reported h/o valvular heart disease and evidence of MR at time of cath 01/27/25
Witnessed BARTOLOME without h/o BARTOLOME 01/2025
intolerant to attempts at CPAP and BiPAP 01/27/25 into 01/28/25
PNA
Echo 01/28/25: EF 35%, akinesis of the mid inferoseptum, apical septum and apex with hypokinesis of the mid inferior wall and severe hypokinesis of the mid anterior wall, mod eccentric MR, mild peak/mean 29/15 mmHg and mild to mod aortic
regurgitation, mild TR with PAP 58 mmHg
Limited echo 01/31/25: EF 35%, akinesis of mid inferoseptum and inferior wall, apical septum and apex, hypokinesis of distal anterior wall
Echo 02/09/2025: EF 30 to 35%,entire septum and apex are akinetic. The entire anterior wall, entire inferior wall, basal and mid anterolateral wall, and apical lateral segment are hypokinetic, mild to moderate peak/mean 28/14 mmHg, mild to
moderate MR with eccentric jet, mild to moderate TR with mild PHTN and PAP 53 mmHg, compared to echo 01/28/2025 and 01/31/2025 the findings are overall similar
Plan:
-Patient with admission for STEMI resulting in LAD PCI, ischemic CM and acute HF 01/27/25 until 02/02/2025, now presents back with worsening shortness of breath since discharge.
-Weight is down at least 3 lbs Lasix 40 mg IV BID diuresis since admission. Patient was taking Lasix 20 mg MWF prior to admission.
-Cre up to 1.9 on 02/11/2025, labs reviewed by me. Patient had a similar bump in Cre during attempts at IV diuresis last admission.
-There is evidence of moderate-sized B/L pleural effusions on CT chest 02/09/2025 which was confirmed on chest U/S on 02/10/2025 and patient underwent thoracentesis 02/11/2025, report and results pending.
-EF is relatively stable at 30 to 35% by echo 02/09/2025
-Outpatient dose of Coreg 6.25 mg BID has been continued
-Outpatient dose of valsartan 160 mg daily is on hold due to REEMA. Appreciate the help of case management on checking the cost of Entresto last admission, it is not available at all with his prescription plan through his insurance, it is not an issue
of a prior authorization but rather it is not even offered through his insurance.
-Patient was not taking aldosterone antagonist prior to admission and will not add yet due to REEMA
-Patient has a $0 co-pay for Farxiga 10 mg daily, will add prior to discharge
-Initial troponin 0.947 and trending down thereafter which is consistent with overall downtrend from his peak troponin of 326 on 01/27/2025 at the time of his acute WA
-Outpatient doses of aspirin and Plavix have been continued.
-Outpatient dose of atorvastatin 40 mg daily has been continued, LDL was 105 last admission and the goal is less than 70
-Pulmonology note reviewed by me and there was evidence of PNA on CT chest which is being managed with ceftriaxone and doxycycline
-Patient was given Decadron IV initially and now transition to prednisone, but pulmonology is not sure if steroids truly helped as the patient seemed to improve very rapidly
-Telemetry reviewed by me and patient remains in SR
-Overall patient being treated for multifactorial hypoxia including CHF and PNA. Case reviewed with patient's son at the bedside on 02/11/2025.
Progress Note - Molding Utility Worker
Subjective
Date of Service: February 11, 2025
He is anxious about the upcoming thoracentesis, overall feels better
Objective
Labs:
02/10/25 03:24
02/11/25 04:58
Labs
Hgb 11.2 g/dL (13.0-18.0) L 02/10/25 03:24
Hct 33.3 % (39.0-52.0) L 02/10/25 03:24
Plt Count 292 10^3/uL (130-400) 02/10/25 03:24
PT 15.4 Sec (11.4-14.6) H 02/08/25 08:26
INR 1.19 02/08/25 08:26
APTT 31.0 Sec (23.4-35.0) 02/08/25 08:26
Sodium 140 mmol/L (135-145) 02/11/25 04:58
Potassium 3.6 mmol/L (3.5-5.1) 02/11/25 04:58
BUN 40 mg/dl (9-20) H 02/11/25 04:58
Creatinine 1.9 mg/dL (0.7-1.3) H 02/11/25 04:58
Glucose 111 mg/dl (70-99) H 02/11/25 04:58
Troponins
02/08/25 02/08/25 02/09/25
15:54 21:43 03:27
Troponin I 0.882 H* 0.801 H* 0.706 H*
Vital Signs and I&O:
Vital Signs
Temp Pulse Resp BP Pulse Ox
97.7 F 68 26 180/99 98
02/11/25 09:50 02/11/25 09:50 02/11/25 09:50 02/11/25 09:50 02/11/25 09:50
Vital Signs
Temp Pulse Resp BP Pulse Ox
97.7 F 68 26 180/99 98
02/11/25 09:50 02/11/25 09:50 02/11/25 09:50 02/11/25 09:50 02/11/25 09:50
Intake & Output
02/09/25 02/10/25 02/11/25 02/12/25
06:59 06:59 06:59 06:59
Intake Total 100 / 100 580 / 580 500 / 500
Output Total 775 / 775 950 / 950 700 / 700
Balance -675 / -675 -370 / -370 -200 / -200
Physical Exam
Physical Exam
GEN: NAD, AAO x 3
LUNGS: 4 L NC. No wheeze
CV: SR on telemetry.
EXT: No edema B/L LE
[2025-02-11] MEDS: STERILE WATER FOR INJECTION 10 ML IV (10:55)
[2025-02-11] MEDS: ROCEPHIN 1000 MG IV (10:55)
--- NOTE | 2025-02-11 12:03 | W.CON.NEPH ---
Consultation
-
Date/Time Consultation Requested: 02/1025 0831
Date/Time Consultation Performed: 02/11/25 1145
Requesting Provider: Sandra Garcia
Performing Provider: Suha Davila
Reason for Consultation: REEMA
Medical History
-
Chief Complaint: SOB
History of Present Illness:
89-year-old male h/o of HTN on valsartan, recent CAD s/p stent d/c on 02/02 presented back on 02/08 with SOB and noted with acute CHF. He was admitted to [facility] on for STEMI and was found to have a mid LAD occlusion treated
with drug-eluting stent. He was initially started on Brilinta then changed to Plavix due to concerns of shortness of breath.During this admission he had mild REEMA post cath creatinine increased from baseline 1.1 to 1.7 with improvement to 1.3 at
discharge. Pulmonary also followed the patient for suspicion of sleep disorder. He was previously intolerant of PAP therapy and was not using it at home. He was also prescribed Ativan after discharge for anxiety.
On this admission chest x-ray shows possible CHF and the pneumonia, creatinine was at 1.4. A CT scan without contrast shows moderate bilateral lower lobe and mid left lower lobe pneumonia with bilateral moderate pleural effusion. Now cr increased
up to 1.9 with IV diuretics hence nephrology consultation. Patient denies any dysuria. Has shortness of breath, he had thoracentesis on the right side of 300 cc today. Denies any chest pain or abdominal pain diarrhea or constipation. No nausea
or vomiting. No fever. He also maintains on the steroid and IV antibiotics.
Past Medical History
Sleep apnea, CAD/STEMI 01/27/25, CHF, hypertension, hyperlipidemia, mitral regurgitation, NSVT, prediabetes
Past Surgical History: Other (Cardiac cath with stent in LAD)
Social History
Tobacco: Non-Smoker
Alcohol: None
Personal:
Living: With Family
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
Family History
no ckd
Family History: Not Pertinent
Allergies / Home Medications
Allergy/AdvReac Type Severity Reaction Status Date / Time
No Known Allergies Allergy Verified 02/08/25 08:02
�Medication �Instructions �Recorded �Confirmed �Type
finasteride 5 mg tablet 5 mg PO Q48H Urinary Issue 01/27/25 02/08/25 History
aspirin 81 mg chewable tablet 81 mg PO DAILY Heart 02/01/25 02/08/25 Rx
disease/condition 90 days #90 tabs
atorvastatin 40 mg tablet 40 mg PO QPM High cholesterol #90 02/01/25 02/08/25 Rx
tabs
carvedilol 6.25 mg tablet 6.25 mg PO BID Heart 02/01/25 02/08/25 Rx
disease/condition #180 tabs
clopidogrel 75 mg tablet 75 mg PO DAILY Heart 02/01/25 02/08/25 Rx
disease/condition #90 tabs
furosemide 20 mg tablet (Lasix) 20 mg PO MOWEFR Fluid 02/08/25 02/08/25 History
Retention/Swelling
lorazepam 0.5 mg tablet 1 mg PO HSPRN PRN anxiety 02/08/25 02/08/25 History
nitroglycerin 0.4 mg sublingual 0.4 mg sublingual [id number] PRN 02/08/25 02/08/25 History
tablet chest pain
pantoprazole 40 mg tablet,delayed 40 mg PO DAILY Gastrointestinal 02/08/25 02/08/25 History
release Issue
valsartan 160 mg tablet 160 mg PO DAILY Blood Pressure 02/08/25 02/08/25 History
Review of Systems
-
All other systems: Negative unless noted
Physical Exam
Vital Signs
Vital Signs
Temp Pulse Resp BP Pulse Ox
97.5 F 68 26 180/99 98
02/11/25 11:10 02/11/25 09:50 02/11/25 09:50 02/11/25 09:50 02/11/25 09:50
Lab Results
WBC 14.5 10^3/uL (4.8-10.8) H 02/10/25 03:24
RBC 3.73 10^6/uL (4.70-6.10) L 02/10/25 03:24
Hgb 11.2 g/dL (13.0-18.0) L 02/10/25 03:24
Hct 33.3 % (39.0-52.0) L 02/10/25 03:24
Plt Count 292 10^3/uL (130-400) 02/10/25 03:24
Sodium 140 mmol/L (135-145) 02/11/25 04:58
Potassium 3.6 mmol/L (3.5-5.1) 02/11/25 04:58
Chloride 103 mmol/L (98-107) 02/11/25 04:58
Carbon Dioxide 29 mmol/L (22-30) 02/11/25 04:58
BUN 40 mg/dl (9-20) H 02/11/25 04:58
Creatinine 1.9 mg/dL (0.7-1.3) H 02/11/25 04:58
eGFR 33.30 02/11/25 04:58
Glucose 111 mg/dl (70-99) H 02/11/25 04:58
Calcium 8.8 mg/dl (8.4-10.2) 02/11/25 04:58
Cnw-X-Lyydshixpvp Pept 59210 pg/ml 02/08/25 08:26
Albumin 3.5 g/dl (3.5-5.0) 02/08/25 08:26
Physical Exam
General: Awake, Alert, Oriented, AOx3, No Distress and Nontoxic
HEENT: EOMI, Anicteric, Conjunctivae Clear, Facial Symmetry and No JVD
Respiratory: Normal Excursion, Nonlabored Respirations and Other (fine crackles rt base, left base decreased)
Cardiac: S1/S2 and Regular Rate/Rhythm
Breast: Deferred by me
Abdomen: Soft, Nontender and Nondistended
Musculoskeletal: No Cyanosis and No Edema
Skin: No Rash and Normal Turgor
Neuro: Nonfocal/Grossly Intact
Psych: Mood/afflect pleasant, Insight/judgement good and Appropriate
Data Reviewed
-
Labs: Labs Reviewed by me, Discussed with Patient and Discussed with Family
Assessment/Plan
-
IMP:
REEMA, possible CKD baseline cr 1.1
Acute hypoxic respiratory failure
Community-acquired pneumonia
Bilateral pleural effusions,. Thoracentesis right 300cc
Acute on chronic HFrEF 30-35%
Ischemic cardiomyopathy
Normocytic anemia
Recent STEMI with LAD stent 01/27/25
History of NSVT
Hyperlipidemia
Enlarged prostate
Plan:
recent STEMI LAD stent on 01/27 now a/w CHF flare
REEMA -cardiorenal, in setting of CHF and diuretics use
agree with holding lasix today and monitor labs
vol status seem to be stable, lost atleast 4kg sinice admit
bland UA and bladder scan 102cc 02/10, check Fena and U PCR
wean O2 as able, likely plan left thoracentesis soon
cont FR and diet restriction
BP somewhat labile, monitor with coreg and prednisone
reviewed with pt and daughter on phone regarding REEMA and potential etiologies, prognosis
abx per primary
dose meds renally
[2025-02-11 12:06] LABS: Body Fluid Second Tech HB
[2025-02-11 12:10] LABS: LDH 216 U/L (120-246); Total Protein 6.1 g/dl (6.3-8.2)
--- NOTE | 2025-02-11 13:54 | W.PN.PUL3 ---
Today's Communication / Plan
-
- D/c prednisone
- 5 days of antibiotic should suffice
- Follow-up pleural fluid cultures and cytology
Assessment
-
89-year-old non-smoking male with a history of CAD, CHF, hypertension, hyperlipidemia, prediabetes who was recently discharged 02/02/2025 after STEMI found to have LAD occlusion treated with drug-eluting stent followed during that admission by
pulmonary for suspected sleep disordered breathing and was previously intolerant of CPAP and presented with increasing shortness of breath-pulmonary consulted for shortness of breath 02/09/2025.
#1. Acute hypoxic respiratory failure
- Suspect this is primarily related to pulmonary edema and decompensated congestive heart failure along with pleural effusions, with underlying pulmonary hypertension
- Continue to diurese, wean oxygen as tolerated
- No prior history of smoking or COPD, discontinue steroids
#2. Acute on chronic heart failure with reduced ejection fraction, LVEF 30 to 35%
- Ischemic cardiomyopathy with recent acute myocardial infarction in 01/2025.
- Echocardiogram reviewed, significant wall motion abnormality of LV along with mild to moderate aortic stenosis with mitral regurgitation
- Continue diuresis as tolerated
#3. Bilateral pleural effusions, R>L
- S/p IR guided thoracentesis on 02/11, 300 mL removed, pleural fluid protein less than 2.0, LDH 136, suggestive of transudate
- Suspect effusions are related to underlying congestive heart failure particularly with transudate fluid analysis and bilateral presence along with vascular congestion
- Follow-up on pleural fluid cytology and cultures
#4. ?Community-acquired pneumonia versus compressive atelectasis
- In view of bilateral pleural effusion, lower lobe atelectasis versus consolidation reported
- WBC count slightly elevated, procalcitonin will not be helpful considering abnormal creatinine
- Clinically favor volume overload and compressive atelectasis due to pleural effusion as primary etiology of pulmonary opacities rather than pneumonia
- Follow-up on pleural fluid cultures
- Will favor a short course of antibiotic, total 5 days should suffice
Other medical diagnoses:
- Acute kidney injury, suspect cardiorenal syndrome. Nephrology service on case
- Nocturnal hypoxemia with concern for sleep disordered breathing. On nocturnal supplemental oxygen. Intolerant to CPAP/BiPAP
- Nocturnal hypoxemia on room air continuous overnight oximetry 01/29/25-32 minutes less than 89% saturation, renae 82%
- Acute KS, s/p PCI, LAD, 01/27/2025
- Hypertension/hyperlipidemia
- BPH
Hypoxemia-multifactorial
CHF reduced EF
Pneumonia
REEMA
Leukocytosis
Vrbprl-ionyghgyoq-neognyujnn 10.8
Mild hyperglycemia
Mild elevation in troponin
Diagnostic data:
Chest x-ray 01/29/2025-extremely low lung volumes, right basilar discoid atelectasis
Echocardiogram 01/31/2025-EF 35%, akinesis of mid inferoseptal and inferior wall, apical septum and apex
[facility] 01/2025: 1. Left heart catheterization with coronary and single-plane left ventriculography
2. Successful stenting of ostial to mid LAD with a 2.5 x 38 mm Norris stent that was implanted at nominal pressures and postdilated with a 2.5 mm noncompliant balloon
- LVEDP 32
Subjective Data
-
Date of Service:
Date of Service: February 11, 2025
Chief Complaint: Pulmonary Follow Up and Dyspnea Follow Up
Subjective:
Comfortably lying in bed in no acute distress.
Review of Systems
Genitourinary: Other (No new symptoms reported)
Objective Data
Data Reviewed
Vital Signs / I&O / Oxygen:
Vital Signs
Temp Pulse Resp BP Pulse Ox
97.5 F 68 26 180/99 98
02/11/25 11:10 02/11/25 09:50 02/11/25 09:50 02/11/25 09:50 02/11/25 09:50
Intake and Output
02/10/25 02/11/25 02/12/25
06:59 06:59 06:59
Intake Total 580 / 580 500 / 500
Output Total 950 / 950 700 / 700
Balance -370 / -370 -200 / -200
SaO2 98
Nasal Cannula flow liters per 4
minute
Physical Exam
General: Respiratory Distress (n) and Comfortable
HEENT: Normocephalic, Anicteric and Moist Mucous Membranes
Cardiovascular: Regular Rhythm and Murmur
Respiratory: Wheeze (n), Crackles (Very faint, basilar), Rhonchi (n), Non-Labored Respirations, Accessory Resp Muscle Use (n) and Stridor
GI: Soft, Non Distended and Non Tender
Neurology: Awake, Alert and No Motor Deficits
Skin: Warm, Good Color, Cyanosis (n), Jaundice (n) and Rash (n)
Labs/Micro/Reports
Lab Data
02/10/25 03:24
02/11/25 04:58
Microbiology
02/08/25 09:43 Blood/Venous Blood Culture - Preliminary
No Growth in 72 hours- Final report to follow
02/08/25 09:28 Blood/Venous Blood Culture - Preliminary
No Growth in 72 hours- Final report to follow
02/08/25 15:54 Nose MRSA Screen - Final
No Methicillin Resistant Staphylococcus aureus isolated.
02/08/25 08:26 Nasal Swab Influenza Types A & B (GUS) - Final
Negative for Influenza A & B, NAAT
Negative results must be combined with clinical observations
and patient history.
Nucleic Acid Amplification test (NAAT)performed on the
[employer] platform.
--- NOTE | 2025-02-11 15:09 | PN.CDI ---
CDI
- -
CDI:
Physician Documentation Request
Admit Date: 02/08/25 11:[address] Hudson,
[facility] is using an adapted version of the 2016 Third International Consensus Definitions for Sepsis and Septic Shock (Sepsis-3) where sepsis is defined as life threatening organ dysfunction caused by a deregulated host response to infection.
Please reference the official [facility] Sepsis Recognition Tool for further information, which can be found on the Intranet under Infection Prevention.
Clinical Indicators Include:
Progress Notes: Documented in H&P and progress note 02/09,' Acute hypoxic respiratory failure...Likely secondary to combination of factors...CHF, pneumonia...'
Progress notes 02/10-02/11,' Acute hypoxic respiratory failure...Likely secondary to combination of factors, including bilateral moderate-sized pleural effusions, possible pneumonia...Community-acquired pneumonia..'
On Admission 02/08
RR:36
Labs:on admission 02/08
WBC: 14.3
Creatinine: 1.4 Nephrology consult 'baseline cr 1.1..'
Treatment: Zosyn and doxycycline.
Based on your medical judgment, can you further clarify the diagnosis being monitored/treated this admission?
� Sepsis due to pneumonia with organ dysfunction of Acute Hypoxic Respiratory Failure / REEMA
� Pneumonia only
� Other ( please specify)
Use of terms such as suspected, likely, concern for, or probable (associated with a specific diagnosis that is being evaluated, monitored, or treated as if it exists) are acceptable and can be coded in the inpatient setting when documented at the
time of discharge.
Please use your independent medical judgement in providing your response.
Thank you,
Cecilia Enamorado RN
CDI Specialist
[place] [employer]
--- NOTE | 2025-02-11 16:28 | CM ---
F/U: PT/OT still needs to evaluate the patient, but Hospital team working on respiratory status. PLAN: Home PT vs. SNF- watch for respiratory needs.
[2025-02-11] MEDS: LOVENOX 30 MG SC (17:19)
[2025-02-11] MEDS: LIPITOR 40 MG PO (17:19)
[2025-02-11] MEDS: ATIVAN 1 MG PO (19:31)
[2025-02-12] VITALS (17 sets, daily range): BP systolic 99–171; BP diastolic 52–113; PULSE 2–58; O2SAT 96; BMI 24.2
--- NOTE | 2025-02-12 02:48 | PTCARENOTE ---
Pt pleasant and cooperative. Able to ambulate to bathroom and back with minimal assistance. Wears 2L O2 at times. Episodes of desat to as low as 81% while sleeping, but with prompt return to >90%. Given HS dose of PRN ativan at pt request for
anxiety. Call rich within reach. Pt demonstrates appropriate use.
[2025-02-12 05:14] LABS: Hematocrit 38.2 % (39.0-52.0); Hemoglobin 12.1 g/dL (13.0-18.0); Mean Corp Hgb Conc. 31.7 g/dL (33.0-37.0); Mean Corpuscular Volume 94.1 fL (80.0-94.0); Nucleated Red Blood Cells % 0 % (-); Platelet Count 333 10^3/uL (130-400); Red Cell Dist. Width 15.0 % (11.5-14.5)
[2025-02-12 05:42] LABS: Blood Urea Nitrogen 48 mg/dl (9-20); Calcium 9.1 mg/dl (8.4-10.2); Carbon Dioxide 30 mmol/L (22-30); Chloride 103 mmol/L (98-107); Estimated Creatinine Clearance 28 ml/min; Glucose 109 mg/dl (70-99); Potassium 3.8 mmol/L (3.5-5.1); Sodium 141 mmol/L (135-145); eGFR 35.54
--- NOTE | 2025-02-12 06:24 | W.PN.UPDATE ---
Update Note
Progress Note Update
Patient is complaining of SOB, SPO2 96%. Afebrile. Diminished lung sounds on exam
-Lasix was on hold for rodney, cr is 1.8 this am, Dr. Zaragoza/ student worker personal injury paralegal agreed to give his morning dose of lasix now.
-duo neb PRN for sob
- Will repeat chest x-ray, result is pending.
[2025-02-12] MEDS: DUONEB 3 ML INH ×3 (07:37→19:46)
--- NOTE | 2025-02-12 08:01 | W.PN.HOSP.TC ---
Today's Communication/Plan
-
Resume Lasix
Monitor renal function
Assessment / Plan
Assessment / Plan
Gen-tachypneic, mild respiratory distress
HEENT-NC, AT, anicteric, clear oral mm
Neck-supple
CV-reg, no M, +S1/S2
Lungs-Rales bilaterally
Abd-soft, NT, ND
Ext-no edema
Musculoskeletal-no cyanosis, clubbing
Skin-warm and dry
Neuro-grossly non-focal
Psych-calm, cooperative
Acute hypoxic respiratory failure -requiring 5 L nasal cannula oxygen currently. Chest x-ray done today 02/12 shows pulmonary edema.
Likely secondary to combination of factors, including bilateral moderate-sized pleural effusions, acute heart failure. Agree with pulmonary that pneumonia seems less likely.
COVID, influenza neg
Speech consult noted, no evidence of overt aspiration. Cannot rule out silent aspiration. Recommendation for regular solids, thin liquids.
Pt also improved with steroids yesterday-unclear if he has a reactive airway component. Steroids discontinued by pulmonary. Patient needs PFTs as outpatient
Bilateral pleural effusions -appears transudative. Likely due to heart failure. Patient had right thoracentesis 02/11, 300 cc clear yellow pleural fluid removed.
Acute on chronic HFrEF -Lasix to resume this morning. Discussed with nursing.
Ischemic cardiomyopathy
BNP 07522
Intake output charting
Daily weights, weight is down 5 kg since admission.
Holding valsartan secondary to REEMA. Continue Coreg
Eventually may benefit from SGLT2 inhibitors
REEMA -REEMA possibly due to cardiorenal syndrome due to heart failure exacerbation. Difficult to tell volume status, may need right heart catheterization but will defer to cardiology. Plan to resume Lasix today. Creatinine 1.8 today.
Admission creatinine was 1.4.
Possible community-acquired pneumonia -clinically doubt sepsis.
Type unclear. Check sputum cultures if possible
Plan for 5 days of antibiotics per pulmonary. Currently on ceftriaxone and doxycycline.
Urinary Legionella and pneumococcal antigens negative. Blood cultures negative.
Leukocytosis today noted, 18.1k. Afebrile. Suspect steroid-induced leukocytosis.
Normocytic anemia -hemoglobin stable, 12.1 today.
Hyponatremia -present on admission. Resolved.
Recent STEMI with LAD stent
Continue aspirin Plavix statin, Coreg. Hold valsartan
Follow troponin
History of NSVT
Hyperlipidemia-continue statin
Enlarged prostate-continue finasteride
Lifelong non-smoker
DVT prophylaxis -switch to heparin.
Full code
Anticipated Discharge: > 48 hours
Subjective/Interval History
-
Date of Service: February 12, 2025
Patient seen and examined. Complaining of shortness of breath.
Objective Data
-
Labs:
Laboratory Results
02/12/25
04:44
WBC 18.1 H
Hgb 12.1 L
Hct 38.2 L
Plt Count 333
Sodium 141
Potassium 3.8
Chloride 103
Carbon Dioxide 30
BUN 48 H
Creatinine 1.8 H
Glucose 109 H
Calcium 9.1
Vital Signs:
Vital Signs
Temp Pulse Resp BP Pulse Ox
97.3 F 77 20 161/91 95
02/12/25 03:00 02/12/25 07:37 02/12/25 07:37 02/12/25 06:29 02/12/25 07:37
I&O
02/11/25 02/12/25 02/13/25
06:59 06:59 06:59
Intake Total 500 / 500
Output Total 700 / 700 350 / 350
Balance -200 / -200 -350 / -350
Review of Systems
-
History Source: Patient
All other systems: Reviewed and negative
[2025-02-12] MEDS: PROTONIX 40 MG PO (08:13)
[2025-02-12] MEDS: PLAVIX 75 MG PO (08:13)
[2025-02-12] MEDS: PEPCID 20 MG PO (08:13)
[2025-02-12] MEDS: LASIX 40 MG IV (08:13)
[2025-02-12] MEDS: LOW STRENGTH ASPIRIN 81 MG PO (08:13)
[2025-02-12] MEDS: COREG 6.25 MG PO ×2 (08:13→20:11)
[2025-02-12] MEDS: VIBRAMYCIN 100 MG PO ×2 (08:13→20:11)
[2025-02-12] MEDS: ROCEPHIN 1000 MG IV (09:41)
[2025-02-12] MEDS: STERILE WATER FOR INJECTION 10 ML IV (09:41)
[2025-02-12] MEDS: APRESOLINE 25 MG PO ×2 (09:41→16:04)
--- NOTE | 2025-02-12 10:24 | W.PN.CARDCBS ---
Addendum entered and electronically signed by Jarret Ruiz MD 02/12/25 12:07:
I saw and examined the patient.
The Food Services Coordinator's note was reviewed and I agree with the note.
Comment: Briefly, 89-year-old man with recent admission for anterior STEMI 01/27/2025 found to have moderately reduced left ventricular systolic function (EF 35%). He was readmitted 02/08/2025 with hypoxic respiratory failure which is in part due to
acute HFrEF.
Received IV diuretics which were subsequently held for rising creatinine
Thoracentesis yesterday which removed 300 cc of clear pleural fluid, but remains hypoxic requiring supplemental O2
proBNP is higher today at 20,000
Would favor continuing with IV diuretics and monitoring renal function closely going forward
Hold valsartan with elevated creatinine
Add hydralazine for afterload reduction in combination with Imdur
Continue Coreg 6.25 twice daily
Aspirin/Plavix and high intensity statin for treatment of CAD
Discussed with patient's son at bedside
Original Note:
Today's Communication / Plan
-
Check proBNP as add-on lab, orders placed by me
Patient was given Lasix 40 mg IV x 1 this morning and his standing dose of Lasix 40 mg IV BID remains on hold due to REEMA and nephrology is following
Prednisone stopped 02/11/2025
Impression / Plan
-
PCP: Dr. Self
Primary Area Intelligence Technician: Dr. Tere Lombardi
Impression:
Presentation with likely multifactorial dyspnea 02/08/2025
Acute hypoxic respiratory failure
Acute HFrEF
CAD
s/p acute anterior STEMI with peak troponin 326 01/27/2025
s/p 2.5 mm Red MERYL to the ostial to mid LAD, residual CHIEF ENVIRONMENTAL COMMITMENT OFFICER RCA and ALEXEY-3 flow in the Circ and LAD at end of case 01/27/2025
ICM EF 35-40% by v-gram 01/27/25, 35% by echo 01/29/25
Elevated troponin, peak 0.9 trending down (last troponin prior to discharge from last admission was 326)
REEMA
HTN
Hypercholesterolemia
Reported h/o valvular heart disease and evidence of MR at time of cath 01/27/25
Witnessed BARTOLOME without h/o BARTOLOME 01/2025
intolerant to attempts at CPAP and BiPAP 01/27/25 into 01/28/25
PNA
Pleural effusion
s/p successful right sided thoracentesis for 300 mL of clear yellow pleural fluid 02/11/2025
Residual small left-sided pleural effusion on CXR 02/11/2025
Echo 01/28/25: EF 35%, akinesis of the mid inferoseptum, apical septum and apex with hypokinesis of the mid inferior wall and severe hypokinesis of the mid anterior wall, mod eccentric MR, mild peak/mean 29/15 mmHg and mild to mod aortic
regurgitation, mild TR with PAP 58 mmHg
Limited echo 01/31/25: EF 35%, akinesis of mid inferoseptum and inferior wall, apical septum and apex, hypokinesis of distal anterior wall
Echo 02/09/2025: EF 30 to 35%,entire septum and apex are akinetic. The entire anterior wall, entire inferior wall, basal and mid anterolateral wall, and apical lateral segment are hypokinetic, mild to moderate peak/mean 28/14 mmHg, mild to
moderate MR with eccentric jet, mild to moderate TR with mild PHTN and PAP 53 mmHg, compared to echo 01/28/2025 and 01/31/2025 the findings are overall similar
Plan:
-Patient with admission for STEMI resulting in LAD PCI, ischemic CM and acute HF 01/27/25 until 02/02/2025, now presents back with worsening shortness of breath since discharge. Patient had initial improvement with Decadron, IV antibiotics and IV
diuresis, but noted to be more SOB especially in the nighttime. Prednisone stopped 02/11/2025 and Lasix was held for REEMA resulting in worsening respiratory status and increased oxygen demands 02/12/2025.
-Weight is down at least 6 lbs on my review of VS 02/12/2025
-Patient had a successful right-sided thoracentesis with 300 mL of clear yellow pleural fluid on 02/11/2025, on follow-up CXR there was only a small left-sided pleural effusion.
-Cre is 1.8 on my review of labs from 02/12/2025, there was computer operations specialist communication between nursing and nephrology and patient was given Lasix 40 mg IV x 1 just before 7 AM on 02/12/2025. Standing order for Lasix 40 mg IV BID is currently on
hold. Patient was taking Lasix 20 mg MWF just prior to admission
-EF is relatively stable at 30 to 35% by echo 02/09/2025
-Outpatient dose of Coreg 6.25 mg BID has been continued
-Outpatient dose of valsartan 160 mg daily is on hold due to REEMA. Appreciate the help of case management on checking the cost of Entresto last admission, it is not available at all with his prescription plan through his insurance, it is not an issue
of a prior authorization but rather it is not even offered through his insurance.
-Start hydralazine 25 mg TID for HTN and can also plan on starting Imdur ER if BP stable in a.m. as alternative to HORTENCIA/ARB therapy.
-Patient was not taking aldosterone antagonist prior to admission and will not add yet due to REEMA
-Patient has a $0 co-pay for Farxiga 10 mg daily, will add prior to discharge
-Initial troponin 0.947 and trending down thereafter which is consistent with overall downtrend from his peak troponin of 326 on 01/27/2025 at the time of his acute KS
-Outpatient doses of aspirin and Plavix have been continued.
-Outpatient dose of atorvastatin 40 mg daily has been continued, LDL was 105 last admission and the goal is less than 70
-Pulmonology note reviewed by me and there was evidence of PNA on CT chest which is being managed with ceftriaxone and doxycycline
-Patient was given Decadron IV initially and now transition to prednisone, but pulmonology is not sure if steroids truly helped as the patient seemed to improve very rapidly. WBC increased to 18 on my review of labs 02/12/2025, this could possibly
be due to steroids on admission, prednisone has been stopped. He is afebrile.
-Telemetry reviewed by me and patient remains in SR
-Case reviewed with patient's son at the bedside on 02/12/2025.
Progress Note - Area Intelligence Technician
Subjective
Date of Service: February 12, 2025
He was more SOB early this morning and was given Lasix 40 mg IV x 1
Objective
Labs:
02/12/25 04:44
02/12/25 04:44
Labs
Hgb 12.1 g/dL (13.0-18.0) L 02/12/25 04:44
Hct 38.2 % (39.0-52.0) L 02/12/25 04:44
Plt Count 333 10^3/uL (130-400) 02/12/25 04:44
PT 15.4 Sec (11.4-14.6) H 02/08/25 08:26
INR 1.19 02/08/25 08:26
APTT 31.0 Sec (23.4-35.0) 02/08/25 08:26
Sodium 141 mmol/L (135-145) 02/12/25 04:44
Potassium 3.8 mmol/L (3.5-5.1) 02/12/25 04:44
BUN 48 mg/dl (9-20) H 02/12/25 04:44
Creatinine 1.8 mg/dL (0.7-1.3) H 02/12/25 04:44
Glucose 109 mg/dl (70-99) H 02/12/25 04:44
Vital Signs and I&O:
Vital Signs
Temp Pulse Resp BP Pulse Ox
97.3 F 77 20 161/91 95
02/12/25 07:00 02/12/25 07:37 02/12/25 07:37 02/12/25 06:29 02/12/25 07:37
Vital Signs
Temp Pulse Resp BP Pulse Ox
97.3 F 77 20 161/91 95
02/12/25 07:00 02/12/25 07:37 02/12/25 07:37 02/12/25 06:29 02/12/25 07:37
Intake & Output
02/10/25 02/11/25 02/12/25 02/13/25
06:59 06:59 06:59 06:59
Intake Total 580 / 580 500 / 500
Output Total 950 / 950 700 / 700 350 / 350
Balance -370 / -370 -200 / -200 -350 / -350
Physical Exam
Physical Exam
GEN: NAD, AAO x 3
LUNGS: 5 L NC. No wheeze
CV: SR on telemetry.
EXT: No edema B/L LE
--- NOTE | 2025-02-12 11:05 | W.PN.NEPH.PH ---
Today's Communication / Plan
-
lasix and follow lab s
Assessment/Plan
-
IMP:
REEMA, possible CKD baseline cr 1.1
Acute hypoxic respiratory failure
Community-acquired pneumonia
Bilateral pleural effusions,. Thoracentesis right 300cc
Acute on chronic HFrEF 30-35%
Ischemic cardiomyopathy
Normocytic anemia
Recent STEMI with LAD stent 01/27/25
History of NSVT
Hyperlipidemia
Enlarged prostate
Plan:
recent STEMI LAD stent on 01/27 now a/w CHF flare
REEMA -cardiorenal, in setting of CHF and diuretics use
bland UA and bladder scan 102cc 02/10, low Fena and U PCR only 0.1gm/gm of cr, non acute renal US
now more sob with pulm edema on CXR agree with resuming lasix and increase dose to 80mg BID
IF cr cont to increase may need RHC
wean O2 as able
cont FR and diet restriction
BP high, monitor with coreg and hydralazine added per cards
reviewed with pt
abx per primary
dose meds renally
labs in am
-
-
Date of Service: February 12, 2025
CC / HPI / ROS
-
Chief Complaint:
REEMA
History of Present Illness:
cr slightly down to 1.8
BP increasing trend
sob this am, s/p lasix
CXR noted pulm edema, BNP [place] 56001
Review of Systems:
sob at rest on 5lit of O2
no cp
wt is down
Labs
-
Labs:
WBC 18.1 10^3/uL (4.8-10.8) H 02/12/25 04:44
RBC 4.06 10^6/uL (4.70-6.10) L 02/12/25 04:44
Hgb 12.1 g/dL (13.0-18.0) L 02/12/25 04:44
Hct 38.2 % (39.0-52.0) L 02/12/25 04:44
Plt Count 333 10^3/uL (130-400) 02/12/25 04:44
Sodium 141 mmol/L (135-145) 02/12/25 04:44
Potassium 3.8 mmol/L (3.5-5.1) 02/12/25 04:44
Chloride 103 mmol/L (98-107) 02/12/25 04:44
Carbon Dioxide 30 mmol/L (22-30) 02/12/25 04:44
BUN 48 mg/dl (9-20) H 02/12/25 04:44
Creatinine 1.8 mg/dL (0.7-1.3) H 02/12/25 04:44
eGFR 35.54 02/12/25 04:44
Glucose 109 mg/dl (70-99) H 02/12/25 04:44
Calcium 9.1 mg/dl (8.4-10.2) 02/12/25 04:44
Albumin 3.5 g/dl (3.5-5.0) 02/08/25 08:26
Physical Exam
-
Vital Signs:
Vital Signs
Temp Pulse Resp BP Pulse Ox
97.3 F 58 20 161/91 96
02/12/25 07:00 02/12/25 10:23 02/12/25 10:23 02/12/25 06:29 02/12/25 10:23
Cardiovascular:: Regular rate and rhythm
Respiratory:: Bilateral: Coarse
Lung Excursion:: Normal
Abdomen:: Nontender and Soft
Extremity Edema:: None: Bilateral:
Barros Catheter: No
--- NOTE | 2025-02-12 11:41 | W.PN.PUL3 ---
Today's Communication / Plan
-
- Resume IV diuresis
Assessment
-
89-year-old non-smoking male with a history of CAD, CHF, hypertension, hyperlipidemia, prediabetes who was recently discharged 02/02/2025 after STEMI found to have LAD occlusion treated with drug-eluting stent followed during that admission by
pulmonary for suspected sleep disordered breathing and was previously intolerant of CPAP and presented with increasing shortness of breath-pulmonary consulted for shortness of breath 02/09/2025.
#1. Acute hypoxic respiratory failure
- Suspect this is primarily related to pulmonary edema and decompensated congestive heart failure along with pleural effusions, with underlying pulmonary hypertension
- Diuresis was briefly held in view of REEMA, resume. Follow-up chest x-ray appears to be slightly more congested.
- No prior history of smoking or COPD, discontinued steroids
#2. Acute on chronic heart failure with reduced ejection fraction, LVEF 30 to 35%
- Ischemic cardiomyopathy with recent acute myocardial infarction in 01/2025.
- Echocardiogram reviewed, significant wall motion abnormality of LV along with mild to moderate aortic stenosis with mitral regurgitation
- Continue diuresis as tolerated
#3. Bilateral pleural effusions, R>L
- S/p IR guided thoracentesis on 02/11, 300 mL removed, pleural fluid protein less than 2.0, LDH 136, suggestive of transudate
- Suspect effusions are related to underlying congestive heart failure particularly with transudate fluid analysis and bilateral presence along with vascular congestion
- Follow-up on pleural fluid cytology and cultures
#4. ?Community-acquired pneumonia versus compressive atelectasis
- In view of bilateral pleural effusion, lower lobe atelectasis versus consolidation reported
- WBC count elevated (?related to steroids), procalcitonin will not be helpful considering abnormal creatinine
- Clinically favor volume overload and compressive atelectasis due to pleural effusion as primary etiology of pulmonary opacities rather than pneumonia
- Follow-up on pleural fluid cultures
- Will favor a short course of antibiotic, total 5 days should suffice
Other medical diagnoses:
- Acute kidney injury, suspect cardiorenal syndrome. Nephrology service on case
- Nocturnal hypoxemia with concern for sleep disordered breathing. On nocturnal supplemental oxygen. Intolerant to CPAP/BiPAP
- Nocturnal hypoxemia on room air continuous overnight oximetry 01/29/25-32 minutes less than 89% saturation, renae 82%
- Acute CO, s/p PCI, LAD, 01/27/2025
- Hypertension/hyperlipidemia
- BPH
Hypoxemia-multifactorial
CHF reduced EF
Pneumonia
REEMA
Leukocytosis
Gwztak-jpxlktmlsw-dbykuxlild 10.8
Mild hyperglycemia
Mild elevation in troponin
Diagnostic data:
Chest x-ray 01/29/2025-extremely low lung volumes, right basilar discoid atelectasis
Echocardiogram 01/31/2025-EF 35%, akinesis of mid inferoseptal and inferior wall, apical septum and apex
[facility] 01/2025: 1. Left heart catheterization with coronary and single-plane left ventriculography
2. Successful stenting of ostial to mid LAD with a 2.5 x 38 mm [place] stent that was implanted at nominal pressures and postdilated with a 2.5 mm noncompliant balloon
- LVEDP 32
Subjective Data
-
Date of Service:
Date of Service: February 12, 2025
Chief Complaint: Pulmonary Follow Up and Dyspnea Follow Up
Subjective:
Reported increased dyspnea overnight required Lasix, comfortably sitting in chair during my evaluation.
Review of Systems
Genitourinary: Other (No new symptoms reported except as stated above.)
Objective Data
Data Reviewed
Vital Signs / I&O / Oxygen:
Vital Signs
Temp Pulse Resp BP Pulse Ox
97.3 F 58 20 161/91 96
02/12/25 07:00 02/12/25 10:23 02/12/25 10:23 02/12/25 06:29 02/12/25 10:23
Intake and Output
02/11/25 02/12/2525
06:59 06:59 06:59
Intake Total 500 / 500
Output Total 700 / 700 350 / 350 200 / 200
Balance -200 / -200 -350 / -350 -200 / -200
SaO2 96
Nasal Cannula flow liters per 5
minute
Physical Exam
General: Respiratory Distress (n) and Comfortable
HEENT: Normocephalic, Anicteric and Moist Mucous Membranes
Cardiovascular: Regular Rhythm and Murmur
Respiratory: Wheeze (n), Crackles (Bibasilar crackles), Rhonchi (n), Non-Labored Respirations, Accessory Resp Muscle Use (n) and Stridor
GI: Soft, Non Distended and Non Tender
Neurology: Awake, Alert and No Motor Deficits
Skin: Warm, Good Color, Cyanosis (n), Jaundice (n) and Rash (n)
Labs/Micro/Reports
Lab Data
02/12/25 04:44
02/12/25 04:44
Microbiology
02/11/25 10:15 Pleural Fluid Body Fluid Culture - Preliminary
No Growth After 18-24 Hours
02/11/25 10:15 Pleural Fluid Gram Stain - Preliminary
02/08/25 09:43 Blood/Venous Blood Culture - Preliminary
No Growth in 4 days- Final report to follow
02/08/25 09:28 Blood/Venous Blood Culture - Preliminary
No Growth in 4 days- Final report to follow
02/11/25 15:08 Urine Legionella Urinary Antigen - Final
Negative for Legionella pneumophila Serogroup 1 antigen.
A negative result does not rule out the possiblity of
Legionella infection due to other serogroups or species of
Legionella. Clinical correlation is recommended.
02/11/25 15:08 Urine Streptococcus pneumoniae Antigen (M - Final
Negative for Streptococcus pneumoniae antigen.
A negative result does not exclude infection with
Streptococcus pneumoniae. Clinical correlation is
recommended.
02/08/25 15:54 Nose MRSA Screen - Final
No Methicillin Resistant Staphylococcus aureus isolated.
[2025-02-12] MEDS: IMDUR (EXTENDED RELEASE) 30 MG PO (13:45)
[2025-02-12] MEDS: LASIX 80 MG IV (16:03)
[2025-02-12] MEDS: HEPARIN 5000 UNITS SC (16:04)
[2025-02-12] MEDS: LIPITOR 40 MG PO (16:04)
[2025-02-12] MEDS: ROBITUSSIN DM 10 ML PO (18:04)
--- NOTE | 2025-02-12 19:31 | PTCARENOTE ---
day shift note. pt c/o shortness of breath most of shift. neb given x 2 .iv lasix administered as ordered. pt voided approx 1000 mls clear yellow urine. resp therapist attempted to place bipap to help with shortness of breath but pt unab;e to
tolerate. 2nd dose lasix given this afternoon. family currently at bedside. pt reports feeling less sob/more comfortable. see nursing assessmemt and flowsheet.
[2025-02-12] MEDS: ATIVAN 1 MG PO (21:45)
[2025-02-12] MEDS: APRESOLINE PO (21:45)
[2025-02-13] VITALS (13 sets, daily range): BP systolic 113–162; BP diastolic 44–94; PULSE 74; O2SAT 95; BMI 24.1
[2025-02-13] MEDS: HEPARIN 5000 UNITS SC ×4 (00:46→23:19)
--- NOTE | 2025-02-13 05:36 | PTCARENOTE ---
Pt intermittently c/o SOB, O2 sat remains >90% on 2L. PRN ativan given for anxiety. Denies additional complaints at this time. Able to ambulate to bathroom to void. Call rich within reach. Care ongoing.
[2025-02-13 06:35] LABS: Hematocrit 34.4 % (39.0-52.0); Hemoglobin 11.0 g/dL (13.0-18.0); Mean Corp Hgb Conc. 32.0 g/dL (33.0-37.0); Mean Corpuscular Volume 91.2 fL (80.0-94.0); Nucleated Red Blood Cells % 0 % (-); Platelet Count 252 10^3/uL (130-400); Red Cell Dist. Width 15.2 % (11.5-14.5)
[2025-02-13 06:48] LABS: Blood Urea Nitrogen 45 mg/dl (9-20); Calcium 8.5 mg/dl (8.4-10.2); Carbon Dioxide 32 mmol/L (22-30); Chloride 104 mmol/L (98-107); Estimated Creatinine Clearance 29 ml/min; Glucose 94 mg/dl (70-99); Potassium 3.5 mmol/L (3.5-5.1); Sodium 141 mmol/L (135-145); eGFR 38.06
[2025-02-13] MEDS: IMDUR (EXTENDED RELEASE) 30 MG PO (08:34)
[2025-02-13] MEDS: LOW STRENGTH ASPIRIN 81 MG PO (08:34)
[2025-02-13] MEDS: COREG 6.25 MG PO ×2 (08:35→19:35)
[2025-02-13] MEDS: PLAVIX 75 MG PO (08:37)
[2025-02-13] MEDS: PROTONIX 40 MG PO (08:37)
[2025-02-13] MEDS: PROSCAR 5 MG PO (08:37)
[2025-02-13] MEDS: LASIX 80 MG IV ×2 (08:38→16:49)
[2025-02-13] MEDS: APRESOLINE 25 MG PO ×3 (09:08→19:35)
[2025-02-13] MEDS: ROBITUSSIN DM 10 ML PO (09:09)
[2025-02-13] MEDS: STERILE WATER FOR INJECTION IV (09:20)
[2025-02-13] MEDS: APRESOLINE PO (09:20)
--- NOTE | 2025-02-13 09:20 | VNURNOTE ---
Addendum entered by Emilia Caldwell RN 02/19/25 12:09:
[facility] liaison spoke w/patient's son. Confirmed that pt DC'ing to son's house in [place]. Confirmed that son would like to resume [facility] services and is aware we will call prior to visits. Resumption referral accepted.
Original Note:
Chart reviewed. [facility] Resumption referral placed in [facility].
--- NOTE | 2025-02-13 09:26 | PTCARENOTE ---
Pt AAOx3 , Son at bedside. Took meds without incident. Pt wants to use O2 as it masked him not feel SOB. P ambulated to BR andusing urinal.
--- NOTE | 2025-02-13 11:10 | W.PN.PUL3 ---
Today's Communication / Plan
-
- D/c antibiotics
- Continue Diuresis, f/u CXR improving
- Possibly RHC if dyspnea persists despite continued diuresis.
Assessment
-
89-year-old non-smoking male with a history of CAD, CHF, hypertension, hyperlipidemia, prediabetes who was recently discharged 02/02/2025 after STEMI found to have LAD occlusion treated with drug-eluting stent followed during that admission by
pulmonary for suspected sleep disordered breathing and was previously intolerant of CPAP and presented with increasing shortness of breath-pulmonary consulted for shortness of breath 02/09/2025.
#1. Acute hypoxic respiratory failure
- Suspect this is primarily related to pulmonary edema and decompensated congestive heart failure along with pleural effusions, with underlying pulmonary hypertension
- Diuresis was briefly held in view of REEMA, resumed now.
- 02/13. after Lasix increased to 80 mg IV bid, f/u CXR improving.
- No prior history of smoking or COPD, discontinued steroids
- Despite improving CXR, patient continues to complain of dyspnea. Pulmonary HTN noted on ECHO. ?RHC if symptoms persist.
#2. Acute on chronic heart failure with reduced ejection fraction, LVEF 30 to 35%
- Ischemic cardiomyopathy with recent acute myocardial infarction in 01/2025.
- Echocardiogram reviewed, significant wall motion abnormality of LV along with mild to moderate aortic stenosis with mitral regurgitation
- Continue diuresis, currently on 80 mg IV bid. f/u CXR improving.
- Might need RHC if dyspnea persists.
#3. Bilateral pleural effusions, R>L
- S/p IR guided thoracentesis on 02/11, 300 mL removed, pleural fluid protein less than 2.0, LDH 136, suggestive of transudate
- Suspect effusions are related to underlying congestive heart failure particularly with transudate fluid analysis and bilateral presence along with vascular congestion
- Follow-up on pleural fluid cytology and cultures
#4. ?Community-acquired pneumonia versus compressive atelectasis
- In view of bilateral pleural effusion, lower lobe atelectasis versus consolidation reported
- WBC count elevated (?related to steroids), procalcitonin will not be helpful considering abnormal creatinine
- Clinically favor volume overload and compressive atelectasis due to pleural effusion as primary etiology of pulmonary opacities rather than pneumonia
- Follow-up on pleural fluid cultures
- Completed 5 days of antibiotics. f/u CXR 02/13 without any consolidation.
Other medical diagnoses:
- Acute kidney injury, suspect cardiorenal syndrome. Nephrology service on case. Tolerating lasix well.
- Nocturnal hypoxemia with concern for sleep disordered breathing. On nocturnal supplemental oxygen. Intolerant to CPAP/BiPAP
- Nocturnal hypoxemia on room air continuous overnight oximetry 01/29/25-32 minutes less than 89% saturation, renae 82%
- Acute MS, s/p PCI, LAD, 01/27/2025
- Hypertension/hyperlipidemia
- BPH
Hypoxemia-multifactorial
CHF reduced EF
Pneumonia
REEMA
Leukocytosis
Odsxba-ayysokscyt-dpsuxzcpee 10.8
Mild hyperglycemia
Mild elevation in troponin
Diagnostic data:
Chest x-ray 01/29/2025-extremely low lung volumes, right basilar discoid atelectasis
Echocardiogram 01/31/2025-EF 35%, akinesis of mid inferoseptal and inferior wall, apical septum and apex
[facility] 01/2025: 1. Left heart catheterization with coronary and single-plane left ventriculography
2. Successful stenting of ostial to mid LAD with a 2.5 x 38 mm Red stent that was implanted at nominal pressures and postdilated with a 2.5 mm noncompliant balloon
- LVEDP 32
Subjective Data
-
Date of Service:
Date of Service: February 13, 2025
Chief Complaint: Pulmonary Follow Up and Dyspnea Follow Up
Subjective:
Comfortably lying in bed, on room air, improving but still states dyspnea.
Review of Systems
Genitourinary: Other (No new complaints. )
Objective Data
Data Reviewed
Vital Signs / I&O / Oxygen:
Vital Signs
Temp Pulse Resp BP Pulse Ox
99.0 F 64 21 162/86 96
02/13/25 07:50 02/13/25 09:24 02/13/25 08:53 02/13/25 09:24 02/13/25 08:53
Intake and Output
02/12/25 02/13/25 02/14/25
06:59 06:59 06:59
Output Total 350 / 350 2400 / 2400 300 / 300
Balance -350 / -350 -2400 / -2400 -300 / -300
SaO2 96
Nasal Cannula flow liters per 2
minute
Physical Exam
General: Respiratory Distress (n) and Comfortable
HEENT: Normocephalic, Anicteric and Moist Mucous Membranes
Cardiovascular: Regular Rhythm and Murmur
Respiratory: Wheeze (n), Crackles (Sugnificant improvement in tales ), Rhonchi (n), Non-Labored Respirations, Accessory Resp Muscle Use (n) and Stridor
GI: Soft, Non Distended and Non Tender
Neurology: Awake, Alert and No Motor Deficits
Skin: Warm, Good Color, Cyanosis (n), Jaundice (n) and Rash (n)
Labs/Micro/Reports
Lab Data
02/13/25 05:32
02/13/25 05:32
Microbiology
02/08/25 09:43 Blood/Venous Blood Culture - Final
No Growth - Final Report
02/08/25 09:28 Blood/Venous Blood Culture - Final
No Growth - Final Report
02/11/25 10:15 Pleural Fluid Body Fluid Culture - Preliminary
No Growth After 18-24 Hours
02/11/25 10:15 Pleural Fluid Gram Stain - Preliminary
02/11/25 15:08 Urine Legionella Urinary Antigen - Final
Negative for Legionella pneumophila Serogroup 1 antigen.
A negative result does not rule out the possiblity of
Legionella infection due to other serogroups or species of
Legionella. Clinical correlation is recommended.
02/11/25 15:08 Urine Streptococcus pneumoniae Antigen (M - Final
Negative for Streptococcus pneumoniae antigen.
A negative result does not exclude infection with
Streptococcus pneumoniae. Clinical correlation is
recommended.
02/08/25 15:54 Nose MRSA Screen - Final
No Methicillin Resistant Staphylococcus aureus isolated.
--- NOTE | 2025-02-13 11:46 | W.PN.HOSP.TC ---
Today's Communication/Plan
-
Continue diuresis
Assessment / Plan
Assessment / Plan
Gen-awake, alert, oriented, NAD
HEENT-NC, AT, anicteric, clear oral mm
Neck-supple
CV-reg, no M, +S1/S2
Lungs-Rales bilaterally
Abd-soft, NT, ND
Ext-no edema
Musculoskeletal-no cyanosis, clubbing
Skin-warm and dry
Neuro-grossly non-focal
Psych-calm, cooperative
Acute hypoxic respiratory failure -oxygenation improved, currently 95% on room air. Chest x-ray done today 02/13 shows improvement of pulmonary edema.
Agree with pulmonary that heart failure seems to be the primary diagnosis.
COVID, influenza neg
Speech consult noted, no evidence of overt aspiration. Cannot rule out silent aspiration. Recommendation for regular solids, thin liquids.
Pt also improved with steroids yesterday-unclear if he has a reactive airway component. Steroids discontinued by pulmonary. Patient needs PFTs as outpatient
Bilateral pleural effusions -appears transudative. Likely due to heart failure. Patient had right thoracentesis 02/11, 300 cc clear yellow pleural fluid removed.
Acute on chronic HFrEF -continue IV Lasix. Clinically improving.
Ischemic cardiomyopathy
BNP 58755
Intake output charting
Daily weights, weight is down 6 kg since admission.
Holding valsartan secondary to REEMA. Continue Coreg
Eventually may benefit from SGLT2 inhibitors
REEMA -REEMA possibly due to cardiorenal syndrome due to heart failure exacerbation. Difficult to tell volume status, may need right heart catheterization but will defer to cardiology. Plan to resume Lasix today. Creatinine 1.7 today.
Admission creatinine was 1.4.
Possible community-acquired pneumonia -pneumonia unlikely. Antibiotics discontinued by pulmonary.
Normocytic anemia -hemoglobin stable.
Hyponatremia -present on admission. Resolved.
Recent STEMI with LAD stent
Continue aspirin Plavix statin, Coreg. Hold valsartan
Follow troponin
History of NSVT
Hyperlipidemia-continue statin
Enlarged prostate-continue finasteride
Lifelong non-smoker
DVT prophylaxis - heparin.
Full code
Anticipated Discharge: > 48 hours
Subjective/Interval History
-
Date of Service: February 13, 2025
Patient seen and examined, states he is still short of breath but looks more comfortable.
Objective Data
-
Labs:
Laboratory Results
02/13/25
05:32
WBC 13.5 H
Hgb 11.0 L
Hct 34.4 L
Plt Count 252 D
Sodium 141
Potassium 3.5
Chloride 104
Carbon Dioxide 32 H
BUN 45 H
Creatinine 1.7 H
Glucose 94
Calcium 8.5
Vital Signs:
Vital Signs
Temp Pulse Resp BP Pulse Ox
99.0 F 64 21 162/86 96
02/13/25 07:50 02/13/25 09:24 02/13/25 08:53 02/13/25 09:24 02/13/25 08:53
I&O
02/12/25 02/13/25 02/14/25
06:59 06:59 06:59
Output Total 350 / 350 2400 / 2400 300 / 300
Balance -350 / -350 -2400 / -2400 -300 / -300
Review of Systems
-
History Source: Patient
All other systems: Reviewed and negative
--- NOTE | 2025-02-13 12:08 | W.PN.NEPH.PH ---
Today's Communication / Plan
-
Continue IV diuretics/suggest right heart cath
Assessment/Plan
-
IMP:
REEMA, possible CKD baseline cr 1.1
Acute hypoxic respiratory failure
Community-acquired pneumonia
Bilateral pleural effusions,. Thoracentesis right 300cc
Acute on chronic HFrEF 30-35%
Ischemic cardiomyopathy
Normocytic anemia
Recent STEMI with LAD stent 01/27/25
History of NSVT
Hyperlipidemia
Enlarged prostate
Plan:
recent STEMI LAD stent on 01/27 now a/w CHF flare
REEMA -cardiorenal, in setting of CHF and diuretics use
bland UA and bladder scan 102cc 02/10, low Fena and U PCR only 0.1gm/gm of cr, non acute renal US
cont FR and diet restriction
Patient is lungs are clear on exam though continues to be short of breath on IV Lasix 80 twice daily
Agree with right heart cath as discussed with cardiology
Discussed with his daughter Nurys on the phone in the presence of the patient and discussed the possibilities of right heart catheterization
abx per primary
dose meds renally
labs in am

Critical care time spent 33
-
-
Date of Service: February 13, 2025
CC / HPI / ROS
-
Chief Complaint:
REEMA
History of Present Illness:
cr slightly down to 1.8
BP increasing trend
sob this am, s/p lasix
CXR noted pulm edema, BNP high
Review of Systems:
sob improved
no cp
wt is down
Labs
-
Labs:
WBC 13.5 10^3/uL (4.8-10.8) H 02/13/25 05:32
RBC 3.77 10^6/uL (4.70-6.10) L 02/13/25 05:32
Hgb 11.0 g/dL (13.0-18.0) L 02/13/25 05:32
Hct 34.4 % (39.0-52.0) L 02/13/25 05:32
Plt Count 252 10^3/uL (130-400) D 02/13/25 05:32
Sodium 141 mmol/L (135-145) 02/13/25 05:32
Potassium 3.5 mmol/L (3.5-5.1) 02/13/25 05:32
Chloride 104 mmol/L (98-107) 02/13/25 05:32
Carbon Dioxide 32 mmol/L (22-30) H 02/13/25 05:32
BUN 45 mg/dl (9-20) H 02/13/25 05:32
Creatinine 1.7 mg/dL (0.7-1.3) H 02/13/25 05:32
eGFR 38.06 02/13/25 05:32
Glucose 94 mg/dl (70-99) 02/13/25 05:32
Calcium 8.5 mg/dl (8.4-10.2) 02/13/25 05:32
Gns-R-Ra[place]owlegd Pept 36460 pg/ml 02/12/25 04:44
Albumin 3.5 g/dl (3.5-5.0) 02/08/25 08:26
Physical Exam
-
Vital Signs:
Vital Signs
Temp Pulse Resp BP Pulse Ox
99.0 F 64 21 162/86 96
02/13/25 07:50 02/13/25 09:24 02/13/25 08:53 02/13/25 09:24 02/13/25 08:53
Cardiovascular:: Regular rate and rhythm
Respiratory:: Bilateral: Coarse
Lung Excursion:: Normal
Abdomen:: Nontender and Soft
Extremity Edema:: None: Bilateral:
Barros Catheter: No
[2025-02-13] MEDS: KCL 40 MEQ PO (12:41)
--- NOTE | 2025-02-13 13:27 | W.PN.CARDCBS ---
Today's Communication / Plan
-
Antibiotics and steroids stopped
Ongoing IV diuresis and if Cre increases, but remains hypoxic with a concern for volume overload then would check RHC
Impression / Plan
-
PCP: Dr. Self
Primary Orderly: Dr. Tere Lombardi
Impression:
Presentation with likely multifactorial dyspnea 02/08/2025
Acute hypoxic respiratory failure
Acute HFrEF
CAD
s/p acute anterior STEMI with peak troponin 326 01/27/2025
s/p 2.5 mm Red MERYL to the ostial to mid LAD, residual [employer] [address] RCA and ALEXEY-3 flow in the Circ and LAD at end of case 01/27/2025
ICM EF 35-40% by v-gram 01/27/25, 35% by echo 01/29/25
Elevated troponin, peak 0.9 trending down (last troponin prior to discharge from last admission was 326)
REEMA
HTN
Hypercholesterolemia
Reported h/o valvular heart disease and evidence of MR at time of cath 01/27/25
Witnessed BARTOLOME without h/o BARTOLOME 01/2025
intolerant to attempts at CPAP and BiPAP 01/27/25 into 01/28/25
PNA
Pleural effusion
s/p successful right sided thoracentesis for 300 mL of clear yellow pleural fluid 02/11/2025
Residual small left-sided pleural effusion on CXR 02/11/2025
Echo 01/28/25: EF 35%, akinesis of the mid inferoseptum, apical septum and apex with hypokinesis of the mid inferior wall and severe hypokinesis of the mid anterior wall, mod eccentric MR, mild peak/mean 29/15 mmHg and mild to mod aortic
regurgitation, mild TR with PAP 58 mmHg
Limited echo 01/31/25: EF 35%, akinesis of mid inferoseptum and inferior wall, apical septum and apex, hypokinesis of distal anterior wall
Echo 02/09/2025: EF 30 to 35%,entire septum and apex are akinetic. The entire anterior wall, entire inferior wall, basal and mid anterolateral wall, and apical lateral segment are hypokinetic, mild to moderate peak/mean 28/14 mmHg, mild to
moderate MR with eccentric jet, mild to moderate TR with mild PHTN and PAP 53 mmHg, compared to echo 01/28/2025 and 01/31/2025 the findings are overall similar
Plan:
-Patient with admission for STEMI resulting in LAD PCI, ischemic CM and acute HF 01/27/25 until 02/02/2025, now presents back with worsening shortness of breath since discharge. Patient had initial improvement with Decadron, IV antibiotics and IV
diuresis, but noted to be more SOB especially in the nighttime. Prednisone stopped 02/11/2025 and Lasix was held for REEMA resulting in worsening respiratory status and increased oxygen demands 02/12/2025.
-Overnight and can reconditioner events reviewed for 02/13/2025, patient continues with intermittent SOB that seems to improve with Ativan. Symptoms of SOB do not necessarily correlate with hypoxia on VS reviewed by me 02/13/2025.
-Weight is down at least 7 lbs on my review of VS 02/13/2025
-Patient had a successful right-sided thoracentesis with 300 mL of clear yellow pleural fluid on 02/11/2025, on follow-up CXR there was only a small left-sided pleural effusion, but no obvious symptomatic improvement.
-Cre is 1.7 on my review of labs from 02/13/2025 and Lasix 80 mg IV BID is ordered. There was an attempt to diurese with Lasix 40 mg IV BID earlier this admission, but dose then increased. Patient was taking Lasix 20 mg MWF just prior to admission
-Nephrology note reviewed by me on 02/13/2025, consideration for RHC noted.
-We will continue to diurese and if Cre increases and patient continues with hypoxia with concern for volume overload then would proceed with RHC at that time
-EF is relatively stable at 30 to 35% by echo 02/09/2025
-Outpatient dose of Coreg 6.25 mg BID has been continued
-Outpatient dose of valsartan 160 mg daily is on hold due to REEMA. Appreciate the help of case management on checking the cost of Entresto last admission, it is not available at all with his prescription plan through his insurance, it is not an issue
of a prior authorization but rather it is not even offered through his insurance.
-New to hydralazine this admission and dose decreased to 25 mg BID on 02/13/2025 due to intermittent hypotension.
-New to Imdur ER 30 mg daily starting 02/12/2025
-Patient was not taking aldosterone antagonist prior to admission and will not add yet due to REEMA
-Patient has a $0 co-pay for Farxiga 10 mg daily, will add prior to discharge
-Initial troponin 0.947 and trending down thereafter which is consistent with overall downtrend from his peak troponin of 326 on 01/27/2025 at the time of his acute PR
-Outpatient doses of aspirin and Plavix have been continued.
-Outpatient dose of atorvastatin 40 mg daily has been continued, LDL was 105 last admission and the goal is less than 70
-Pulmonology note reviewed by me on 02/13/2025, antibiotics have been stopped for possible PNA
-Patient was given Decadron IV initially and then transitioned to prednisone, but pulmonology is not sure if steroids truly helped as the patient seemed to improve very rapidly. Prednisone has been stopped. He is afebrile.
-Telemetry reviewed by me and patient remains in SR 02/13/2025
Progress Note - Orderly
Subjective
Date of Service: February 13, 2025
He was very SOB early this morning, but felt better after Ativan
Objective
Labs:
02/13/25 05:32
02/13/25 05:32
Labs
Hgb 11.0 g/dL (13.0-18.0) L 02/13/25 05:32
Hct 34.4 % (39.0-52.0) L 02/13/25 05:32
Plt Count 252 10^3/uL (130-400) D 02/13/25 05:32
PT 15.4 Sec (11.4-14.6) H 02/08/25 08:26
INR 1.19 02/08/25 08:26
APTT 31.0 Sec (23.4-35.0) 02/08/25 08:26
Sodium 141 mmol/L (135-145) 02/13/25 05:32
Potassium 3.5 mmol/L (3.5-5.1) 02/13/25 05:32
BUN 45 mg/dl (9-20) H 02/13/25 05:32
Creatinine 1.7 mg/dL (0.7-1.3) H 02/13/25 05:32
Glucose 94 mg/dl (70-99) 02/13/25 05:32
Vital Signs and I&O:
Vital Signs
Temp Pulse Resp BP Pulse Ox
99.0 F 68 16 134/68 94
02/13/25 07:50 02/13/25 12:00 02/13/25 12:00 02/13/25 10:00 02/13/25 12:00
Vital Signs
Temp Pulse Resp BP Pulse Ox
99.0 F 68 16 134/68 94
02/13/25 07:50 02/13/25 12:00 02/13/25 12:00 02/13/25 10:00 02/13/25 12:00
Intake & Output
02/11/25 02/12/25 02/13/25 02/14/25
06:59 06:59 06:59 06:59
Intake Total 500 / 500
Output Total 700 / 700 350 / 350 2400 / 2400 450 / 450
Balance -200 / -200 -350 / -350 -2400 / -2400 -450 / -450
Physical Exam
Physical Exam
GEN: NAD, AAO x 3
LUNGS: RA. No wheeze
CV: SR on telemetry.
EXT: No edema B/L LE
--- NOTE | 2025-02-13 13:32 | CM ---
Diuresing, IV/Lasix. Discharge POC: Therapy rec for HH vs no needs. Will need HH RN. HH has accepted. Will need to determine if needs PT/OT on next therapy eval.
--- NOTE | 2025-02-13 13:50 | W.PN.CARDCBS ---
Today's Communication / Plan
-
Continue IV Lasix today and wean oxygen as able
Monitor renal function�if creatinine worsens would consider right heart catheterization
Impression / Plan
-
PCP: Dr. Self
Primary Toll Relief Operator: Dr. Tere Lombardi
Impression:
Presentation with likely multifactorial dyspnea 02/08/2025
Acute hypoxic respiratory failure
Acute HFrEF
CAD
s/p acute anterior STEMI with peak troponin 326 01/27/2025
s/p 2.5 mm Veteran MERYL to the ostial to mid LAD, residual [employer] RCA and ALEXEY-3 flow in the Circ and LAD at end of case 01/27/2025
ICM EF 35-40% by v-gram 01/27/25, 35% by echo 01/29/25
Elevated troponin, peak 0.9 trending down (last troponin prior to discharge from last admission was 326)
REEMA
HTN
Hypercholesterolemia
Reported h/o valvular heart disease and evidence of MR at time of cath 01/27/25
Witnessed BARTOLOME without h/o BARTOLOME 01/2025
intolerant to attempts at CPAP and BiPAP 01/27/25 into 01/28/25
PNA
Pleural effusion
s/p successful right sided thoracentesis for 300 mL of clear yellow pleural fluid 02/11/2025
Residual small left-sided pleural effusion on CXR 02/11/2025
Echo 01/28/25: EF 35%, akinesis of the mid inferoseptum, apical septum and apex with hypokinesis of the mid inferior wall and severe hypokinesis of the mid anterior wall, mod eccentric MR, mild peak/mean 29/15 mmHg and mild to mod aortic
regurgitation, mild TR with PAP 58 mmHg
Limited echo 01/31/25: EF 35%, akinesis of mid inferoseptum and inferior wall, apical septum and apex, hypokinesis of distal anterior wall
Echo 02/09/2025: EF 30 to 35%,entire septum and apex are akinetic. The entire anterior wall, entire inferior wall, basal and mid anterolateral wall, and apical lateral segment are hypokinetic, mild to moderate peak/mean 28/14 mmHg, mild to
moderate MR with eccentric jet, mild to moderate TR with mild PHTN and PAP 53 mmHg, compared to echo 01/28/2025 and 01/31/2025 the findings are overall similar
Plan:
-Patient with admission for STEMI resulting in LAD PCI, ischemic CM and acute HF 01/27/25 until 02/02/2025, now presents back with worsening shortness of breath since discharge. Patient had initial improvement with Decadron, IV antibiotics and IV
diuresis, but noted to be more SOB especially in the nighttime. Prednisone stopped 02/11/2025 and Lasix was held for REEMA resulting in worsening respiratory status and increased oxygen demands 02/12/2025. Had a successful right-sided thoracentesis
with 300 mL of clear yellow pleural fluid on 02/11/2025, on follow-up CXR there was only a small left-sided pleural effusion.
-Continues to have episodes of what sounds like paroxysmal nocturnal dyspnea and remains on supplemental oxygen via nasal cannula
-Most recent proBNP 21,000
-Suspect that he would benefit from additional diuresis. Would continue with current dose of Lasix 80 mg twice daily and monitor response.
-If creatinine worsens or his respiratory status fails to improve we should consider right heart catheterization for more definitive assessment of his filling pressures
-With newly reduced LV systolic function would continue Coreg
-Outpatient dose of valsartan 160 mg daily is on hold due to REEMA. Appreciate the help of case management on checking the cost of Entresto last admission, it is not available at all with his prescription plan through his insurance, it is not an issue
of a prior authorization but rather it is not even offered through his insurance.
-Continue hydralazine for afterload reduction in combination with Imdur
-Patient was not taking aldosterone antagonist prior to admission and will not add yet due to REEMA
-Patient has a $0 co-pay for Farxiga 10 mg daily, will add prior to discharge when renal function normalizes
-Initial troponin 0.947 and trending down thereafter which is consistent with overall downtrend from his peak troponin of 326 on 01/27/2025 at the time of his acute [place]
-Outpatient doses of aspirin and Plavix have been continued.
-Outpatient dose of atorvastatin 40 mg daily has been continued, LDL was 105 last admission and the goal is less than 70
-Pulmonology note reviewed by me and there was evidence of PNA on CT chest which is being managed with ceftriaxone and doxycycline
-Patient was given Decadron IV initially
-Case reviewed with patient's son at the bedside on 02/12/2025.
Progress Note - Toll Relief Operator
Subjective
Date of Service: February 13, 2025
They tell me his breathing is better today but did have an additional episode of shortness of breath overnight. No chest pain or pressure. Still with dry cough.
Objective
Labs:
02/13/25 05:32
02/13/25 05:32
Labs
Hgb 11.0 g/dL (13.0-18.0) L 02/13/25 05:32
Hct 34.4 % (39.0-52.0) L 02/13/25 05:32
Plt Count 252 10^3/uL (130-400) D 02/13/25 05:32
PT 15.4 Sec (11.4-14.6) H 02/08/25 08:26
INR 1.19 02/08/25 08:26
APTT 31.0 Sec (23.4-35.0) 02/08/25 08:26
Sodium 141 mmol/L (135-145) 02/13/25 05:32
Potassium 3.5 mmol/L (3.5-5.1) 02/13/25 05:32
BUN 45 mg/dl (9-20) H 02/13/25 05:32
Creatinine 1.7 mg/dL (0.7-1.3) H 02/13/25 05:32
Glucose 94 mg/dl (70-99) 02/13/25 05:32
Vital Signs and I&O:
Vital Signs
Temp Pulse Resp BP Pulse Ox
97.6 F 68 16 134/68 94
02/13/25 11:37 02/13/25 12:00 02/13/25 12:00 02/13/25 10:00 02/13/25 12:00
Vital Signs
Temp Pulse Resp BP Pulse Ox
97.6 F 68 16 134/68 94
02/13/25 11:37 02/13/25 12:00 02/13/25 12:00 02/13/25 10:00 02/13/25 12:00
Intake & Output
02/11/25 02/12/25 02/13/25 02/14/25
06:59 06:59 06:59 06:59
Intake Total 500 / 500
Output Total 700 / 700 350 / 350 2400 / 2400 450 / 450
Balance -200 / -200 -350 / -350 -2400 / -2400 -450 / -450
Physical Exam
Physical Exam
Gen: NAD, AAOx3
HEENT: NC/AT, sclera anicteric
Neck: No JVD
CV: RRR, NL s1/s2
Lungs: CTAB on 2L NC
Abd: S/ND
Ext: No LE edema
Skin: Warm, dry
Neuro: Non-focal
[2025-02-13] MEDS: LIPITOR 40 MG PO (17:13)
[2025-02-13] MEDS: ATIVAN 1 MG PO (21:51)
--- NOTE | 2025-02-13 23:42 | PTCARENOTE ---
assumed care of patient. pt is AAOx3, able to make needs known. VSS. a-fib on the monitor. no complaints of pain. on 2L NC 99%. some SOB on exertion noted. pt able to walk to bathroom with minimal assist or using urinal at bedside. PRN ativan given
at HS per MAR. care ongoing.
[2025-02-14] VITALS (14 sets, daily range): BP systolic 93–149; BP diastolic 55–83; PULSE 64; BMI 23.4
--- NOTE | 2025-02-14 04:16 | PTCARENOTE ---
pt had 14 beat run of v-tach, pt asymptomatic, sleeping in bed. BP 127/74 P-50s. notified covering SERVICE AND REPAIR SUPERVISOR, mag level added to AM labs.
[2025-02-14 05:05] LABS: Hematocrit 34.5 % (39.0-52.0); Hemoglobin 11.6 g/dL (13.0-18.0); Mean Corp Hgb Conc. 33.6 g/dL (33.0-37.0); Mean Corpuscular Volume 88.9 fL (80.0-94.0); Nucleated Red Blood Cells % 0 % (-); Platelet Count 259 10^3/uL (130-400); Red Cell Dist. Width 14.8 % (11.5-14.5)
[2025-02-14 05:19] LABS: Blood Urea Nitrogen 39 mg/dl (9-20); Calcium 8.6 mg/dl (8.4-10.2); Carbon Dioxide 31 mmol/L (22-30); Chloride 102 mmol/L (98-107); Estimated Creatinine Clearance 36 ml/min; Glucose 107 mg/dl (70-99); Magnesium 2.0 mg/dl (1.6-2.3); Potassium 3.3 mmol/L (3.5-5.1); Sodium 137 mmol/L (135-145); eGFR 48.04
--- NOTE | 2025-02-14 08:21 | W.PN.HOSP.TC ---
Today's Communication/Plan
-
Continue current care
Assessment / Plan
Assessment / Plan
Gen-awake, alert, oriented, NAD
HEENT-NC, AT, anicteric, clear oral mm
Neck-supple
CV-reg, no M, +S1/S2
Lungs-clear bilaterally
Abd-soft, NT, ND
Ext-no edema
Musculoskeletal-no cyanosis, clubbing
Skin-warm and dry
Neuro-grossly non-focal
Psych-calm, cooperative
Acute hypoxic respiratory failure -oxygenation improved, currently 95% on room air. Chest x-ray done today 02/13 shows improvement of pulmonary edema.
Agree with pulmonary that heart failure seems to be the primary diagnosis.
COVID, influenza neg
Speech consult noted, no evidence of overt aspiration. Cannot rule out silent aspiration. Recommendation for regular solids, thin liquids.
Pt also improved with steroids yesterday-unclear if he has a reactive airway component. Steroids discontinued by pulmonary. Patient needs PFTs as outpatient
Bilateral pleural effusions -appears transudative. Likely due to heart failure. Patient had right thoracentesis 02/11, 300 cc clear yellow pleural fluid removed.
Acute on chronic HFrEF -continue IV Lasix. Clinically improving.
Ischemic cardiomyopathy
BNP 67319
Intake output charting
Daily weights, weight is down 9 kg since admission.
Holding valsartan secondary to REEMA. Continue Coreg
Eventually may benefit from SGLT2 inhibitors
REEMA -REEMA possibly due to cardiorenal syndrome due to heart failure exacerbation. Difficult to tell volume status, may need right heart catheterization but will defer to cardiology. Plan to resume Lasix today. Creatinine now back to baseline, 1.4.
Possible community-acquired pneumonia -pneumonia unlikely. Antibiotics discontinued by pulmonary.
Essential hypertension -blood pressure now running high. Has been off valsartan for REEMA.
Currently on carvedilol, hydralazine, isosorbide mononitrate. Will defer to cardiology further changes.
Hypokalemia -3.3. Will increase potassium supplements. Magnesium is 2.0.
Normocytic anemia -hemoglobin stable.
Hyponatremia -present on admission. Resolved.
Recent STEMI with LAD stent
Continue aspirin Plavix statin, Coreg. Hold valsartan
Follow troponin
History of NSVT
Hyperlipidemia-continue statin
Enlarged prostate-continue finasteride
Lifelong non-smoker
DVT prophylaxis - heparin.
Full code
Son updated at the bedside.
Anticipated Discharge: > 48 hours
Subjective/Interval History
-
Date of Service: February 14, 2025
Patient seen and examined. Overall feeling better, less short of breath.
Objective Data
-
Labs:
Laboratory Results
02/14/25
04:48
WBC 14.6 H
Hgb 11.6 L
Hct 34.5 L
Plt Count 259
Sodium 137
Potassium 3.3 L
Chloride 102
Carbon Dioxide 31 H
BUN 39 H
Creatinine 1.4 H
Glucose 107 H
Calcium 8.6
Vital Signs:
Vital Signs
Temp Pulse Resp BP Pulse Ox
97.5 F 54 19 144/55 99
02/14/25 07:20 02/14/25 06:00 02/14/25 06:00 02/14/25 06:00 02/13/25 20:25
I&O
02/13/25 02/14/25 02/15/25
06:59 06:59 06:59
Output Total 2400 / 2400 2300 / 2300
Balance -2400 / -2400 -2300 / -2300
Review of Systems
-
History Source: Patient
All other systems: Reviewed and negative
--- NOTE | 2025-02-14 08:32 | W.PN.CARDCBS ---
Today's Communication / Plan
-
IV lasix
Consider RHC tomorrow
Impression / Plan
-
.
PCP: Dr. Self
Primary Capper Machine Operator: Dr. Tere Lombardi
Impression:
Presentation with likely multifactorial dyspnea 02/08/2025
Acute hypoxic respiratory failure
Acute HFrEF
CAD
s/p acute anterior STEMI with peak troponin 326 01/27/2025
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
ICM EF 35-40% by v-gram 01/27/25, 35% by echo 01/29/25
Elevated troponin, peak 0.9 trending down (last troponin prior to discharge from last admission was 326)
REEMA
HTN
Hypercholesterolemia
Reported h/o valvular heart disease and evidence of MR at time of cath 01/27/25
Witnessed BARTOLOME without h/o BARTOLOME 01/2025
intolerant to attempts at CPAP and BiPAP 01/27/25 into 01/28/25
PNA
Pleural effusion
s/p successful right sided thoracentesis for 300 mL of clear yellow pleural fluid 02/11/2025
Residual small left-sided pleural effusion on CXR 02/11/2025
Echo 01/28/25: EF 35%, akinesis of the mid inferoseptum, apical septum and apex with hypokinesis of the mid inferior wall and severe hypokinesis of the mid anterior wall, mod eccentric MR, mild peak/mean 29/15 mmHg and mild to mod aortic
regurgitation, mild TR with PAP 58 mmHg
Limited echo 01/31/25: EF 35%, akinesis of mid inferoseptum and inferior wall, apical septum and apex, hypokinesis of distal anterior wall
Echo 02/09/2025: EF 30 to 35%,entire septum and apex are akinetic. The entire anterior wall, entire inferior wall, basal and mid anterolateral wall, and apical lateral segment are hypokinetic,NL RV size and fxn, mild to moderate peak/mean 28/14
mmHg, mild to moderate MR with eccentric jet, mild to moderate TR with mild PHTN and PAP 53 mmHg, compared to echo 01/28/2025 and 01/31/2025 the findings are overall similar
Plan:
Patient with admission for STEMI resulting in LAD PCI 01/27 - 02/02/2025, ischemic CM, presented back with worsening shortness of breath since last discharge
Continue IV lasix diuresis with 80 mg IV BID
Cr continues to improve
Is and Os remain negative, -2300 last 24 hrs
Wt continues to come down and is down at least 12 lbs since admit
Despite diuresis, he continues to have paroxysms of dyspnea and hypoxia, will consider right heart cath Feb 15 pending clinical course.
[place] [address] on Feb 12
s/p right thoracentesis for 300 cc Feb 11
Appreciate pulm input. No longer receiving abx or steroids
Bilateral venous ultrasound negative for DVT February 09, 2025
Continue medical therapy of likely non-CO troponin, peak 0.9 trended down (last troponin prior to discharge from last admission was 240)
Cont DAPT with aspirin and Plavix given recent PCI, he was initially on Brilinta but transition due to shortness of breath to Plavix
Cont statin and recheck lipids as outpt, LDL goal <70
Cont high intensity statin therapy
GDMT of cardiomyopathy as able:
Continue Coreg
Cont to hold Losartan with RI; also Entresto is not covered by patient's insurance
Consider addition of Farxiga, which has $0 co-pay, but hold off for now with increased cr
Hold off Aldactone for now with RF
Cont Hydralazine and Imdur for afterload reduction in setting of renal insufficiency.
Discussed with patient's son at bedside and nursing
Progress Note - Capper Machine Operator
Subjective
Date of Service: February 14, 2025
Pt seen and examined. Feels tired. No chest pain.
Objective
Labs:
02/14/25 04:48
02/14/25 04:48
Labs
Hgb 11.6 g/dL (13.0-18.0) L 02/14/25 04:48
Hct 34.5 % (39.0-52.0) L 02/14/25 04:48
Plt Count 259 10^3/uL (130-400) 02/14/25 04:48
PT 15.4 Sec (11.4-14.6) H 02/08/25 08:26
INR 1.19 02/08/25 08:26
APTT 31.0 Sec (23.4-35.0) 02/08/25 08:26
Sodium 137 mmol/L (135-145) 02/14/25 04:48
Potassium 3.3 mmol/L (3.5-5.1) L 02/14/25 04:48
BUN 39 mg/dl (9-20) H 02/14/25 04:48
Creatinine 1.4 mg/dL (0.7-1.3) H 02/14/25 04:48
Glucose 107 mg/dl (70-99) H 02/14/25 04:48
Vital Signs and I&O:
Vital Signs
Temp Pulse Resp BP Pulse Ox
97.5 F 54 19 144/55 99
02/14/25 07:20 02/14/25 06:00 02/14/25 06:00 02/14/25 06:00 02/13/25 20:25
Vital Signs
Temp Pulse Resp BP Pulse Ox
97.5 F 54 19 144/55 99
02/14/25 07:20 02/14/25 06:00 02/14/25 06:00 02/14/25 06:00 02/13/25 20:25
Intake & Output
02/12/25 02/13/25 02/14/25 02/15/25
06:59 06:59 06:59 06:59
Output Total 350 / 350 2400 / 2400 2300 / 2300
Balance -350 / -350 -2400 / -2400 -2300 / -2300
Physical Exam
Physical Exam
General: No acute distress, AAOX3
Neck: Negative JVD
Heart: Regular, Negative S3 positive S1/S2, Negative S4, No murmur
Lungs: CTA b/l, negative wheezes/rales/rhonchi
Abd: Positive BS, NT/ND, neg rebound/rigidity/guarding
Ext: Negative cyanosis/clubbing/edema
Neuro: nonfocal
[2025-02-14] MEDS: PROTONIX 40 MG PO (08:34)
[2025-02-14] MEDS: PEPCID 20 MG PO (08:34)
[2025-02-14] MEDS: IMDUR (EXTENDED RELEASE) 30 MG PO (08:34)
[2025-02-14] MEDS: PLAVIX 75 MG PO (08:34)
[2025-02-14] MEDS: LOW STRENGTH ASPIRIN 81 MG PO (08:35)
[2025-02-14] MEDS: HEPARIN 5000 UNITS SC ×2 (08:35→16:55)
[2025-02-14] MEDS: APRESOLINE 25 MG PO ×2 (08:35→20:48)
[2025-02-14] MEDS: COREG 6.25 MG PO ×2 (08:35→20:49)
[2025-02-14] MEDS: KCL 40 MEQ PO (08:35)
[2025-02-14] MEDS: LASIX 80 MG IV ×2 (08:36→16:55)
[2025-02-14] MEDS: STERILE WATER FOR INJECTION IV (08:36)
--- NOTE | 2025-02-14 09:56 | W.PN.PUL3 ---
Today's Communication / Plan
-
- Continue to monitor off Steroids and Antibiotics
- Diuresis and RHC per cardiology service
- Pulmonary team will sign off, please call as needed.
Assessment
-
89-year-old non-smoking male with a history of CAD, CHF, hypertension, hyperlipidemia, prediabetes who was recently discharged 02/02/2025 after STEMI found to have LAD occlusion treated with drug-eluting stent followed during that admission by
pulmonary for suspected sleep disordered breathing and was previously intolerant of CPAP and presented with increasing shortness of breath-pulmonary consulted for shortness of breath 02/09/2025.
#1. Acute hypoxic respiratory failure
- Suspect this is primarily related to pulmonary edema and decompensated congestive heart failure along with pleural effusions, with underlying pulmonary hypertension
- Diuresis was briefly held in view of REEMA, resumed now.
- 02/13. after Lasix increased to 80 mg IV bid, f/u CXR improving.
- No prior history of smoking or COPD, discontinued steroids
- Despite improving CXR, patient continues to complain of dyspnea. Pulmonary HTN noted on ECHO. Cardiology correspondence reviewed, right heart cath in AM.
#2. Acute on chronic heart failure with reduced ejection fraction, LVEF 30 to 35%
- Ischemic cardiomyopathy with recent acute myocardial infarction in 01/2025.
- Echocardiogram reviewed, significant wall motion abnormality of LV along with mild to moderate aortic stenosis with mitral regurgitation
- Continue diuresis, currently on 80 mg IV bid. f/u CXR improving.
- RHC in AM.
#3. Bilateral pleural effusions, R>L
- S/p IR guided thoracentesis on 02/11, 300 mL removed, pleural fluid protein less than 2.0, LDH 136, suggestive of transudate
- Suspect effusions are related to underlying congestive heart failure particularly with transudate fluid analysis and bilateral presence along with vascular congestion
- Follow-up pleural fluid cytology and cultures unremarkable.
#4. ?Community-acquired pneumonia versus compressive atelectasis
- In view of bilateral pleural effusion, lower lobe atelectasis versus consolidation reported
- WBC count elevated (?related to steroids), procalcitonin will not be helpful considering abnormal creatinine
- Clinically favor volume overload and compressive atelectasis due to pleural effusion as primary etiology of pulmonary opacities rather than pneumonia
- Follow-up on pleural fluid cultures
- Completed 5 days of antibiotics. f/u CXR 02/13 without any consolidation.
- Continue to monitor off steroids and off antibiotics.
Other medical diagnoses:
- Acute kidney injury, suspect cardiorenal syndrome. Nephrology service on case. Tolerating lasix well. Creatinine improving with aggressive diuresis.
- Nocturnal hypoxemia with concern for sleep disordered breathing. On nocturnal supplemental oxygen. Intolerant to CPAP/BiPAP
- Nocturnal hypoxemia on room air continuous overnight oximetry 01/29/25-32 minutes less than 89% saturation, renae 82%
- Acute [place], s/p PCI, LAD, 01/27/2025
- Hypertension/hyperlipidemia
- BPH
Hypoxemia-multifactorial
CHF reduced EF
Pneumonia
REEMA
Leukocytosis
Iytobj-wybjsgvcpu-jedkaxyshq 10.8
Mild hyperglycemia
Mild elevation in troponin
Total time spent on this consultation/encounter __45__ minutes which includes review of history, physical exam, medications, laboratory data, personal review of imaging, extensive review of outpatient records, discussion with care team and
respiratory therapy.
Discussed with primary hospitalist team.
Diagnostic data:
Chest x-ray 01/29/2025-extremely low lung volumes, right basilar discoid atelectasis
Echocardiogram 01/31/2025-EF 35%, akinesis of mid inferoseptal and inferior wall, apical septum and apex
LHC 01/2025: 1. Left heart catheterization with coronary and single-plane left ventriculography
2. Successful stenting of ostial to mid LAD with a 2.5 x 38 mm Floyd stent that was implanted at nominal pressures and postdilated with a 2.5 mm noncompliant balloon
- LVEDP 32
Subjective Data
-
Date of Service:
Date of Service: February 14, 2025
Chief Complaint: Pulmonary Follow Up and Dyspnea Follow Up
Subjective:
Comfortably sitting in bed on room air. Reports intermittent ongoing dyspnea.
Review of Systems
Genitourinary: Other (All 14 systems reviewed and negative except as stated above in the history of present illness.)
Objective Data
Data Reviewed
Vital Signs / I&O / Oxygen:
Vital Signs
Temp Pulse Resp BP Pulse Ox
97.5 F 65 19 149/81 99
02/14/25 07:20 02/14/25 08:36 02/14/25 06:00 02/14/25 08:36 02/13/25 20:25
Intake and Output
02/13/25 02/14/25 02/15/25
06:59 06:59 06:59
Output Total 2400 / 2400 2300 / 2300
Balance -2400 / -2400 -2300 / -2300
SaO2 99
Nasal Cannula flow liters per 2
minute
Physical Exam
General: Respiratory Distress (n) and Comfortable
HEENT: Normocephalic, Anicteric and Moist Mucous Membranes
Cardiovascular: Regular Rhythm and Murmur
Respiratory: Wheeze (n), Crackles (No residual crackles, clear exam), Rhonchi (n), Non-Labored Respirations, Accessory Resp Muscle Use (n) and Stridor
GI: Soft, Non Distended and Non Tender
Neurology: Awake, Alert and No Motor Deficits
Skin: Warm, Good Color, Cyanosis (n), Jaundice (n) and Rash (n)
Labs/Micro/Reports
Lab Data
02/14/25 04:48
02/14/25 04:48
Microbiology
02/11/25 10:15 Pleural Fluid Body Fluid Culture - Final
No Growth After 72 Hours
02/11/25 10:15 Pleural Fluid Gram Stain - Final
02/08/25 09:43 Blood/Venous Blood Culture - Final
No Growth - Final Report
02/08/25 09:28 Blood/Venous Blood Culture - Final
No Growth - Final Report
02/11/25 15:08 Urine Legionella Urinary Antigen - Final
Negative for Legionella pneumophila Serogroup 1 antigen.
A negative result does not rule out the possiblity of
Legionella infection due to other serogroups or species of
Legionella. Clinical correlation is recommended.
02/11/25 15:08 Urine Streptococcus pneumoniae Antigen (M - Final
Negative for Streptococcus pneumoniae antigen.
A negative result does not exclude infection with
Streptococcus pneumoniae. Clinical correlation is
recommended.
--- NOTE | 2025-02-14 10:28 | PTCARENOTE ---
Assumed care of patient this morning. He is aaox3, pleasant. Pt given all morning medications including Lasix 80 mg IV. On monitor, pt in SR with PACs. BP stable. Patient ate full breakfast and was sitting in chair but back to bed following for a
nap. Pt is c/o shortness of breath with trying to take a nap late this morning. Patient took off his oxygen, I encouraged him to put it back on if feeling short of breath but patient states 'it does nothing.' Pt's son at bedside this morning and
updated. Pt's daughter also called and was updated. Assessment, care and VS as charted.
--- NOTE | 2025-02-14 11:07 | W.PN.NEPH.PH ---
Today's Communication / Plan
-
Continue IV Lasix
Assessment/Plan
-
IMP:
REEMA, possible CKD baseline cr 1.1
Acute hypoxic respiratory failure
Community-acquired pneumonia
Bilateral pleural effusions,. Thoracentesis right 300cc
Acute on chronic HFrEF 30-35%
Ischemic cardiomyopathy
Normocytic anemia
Recent STEMI with LAD stent 01/27/25
History of NSVT
Hyperlipidemia
Enlarged prostate
Plan:
recent STEMI LAD stent on 01/27 now a/w CHF flare
REEMA -cardiorenal, in setting of CHF and diuretics use
bland UA and bladder scan 102cc 02/10, low Fena and U PCR only 0.1gm/gm of cr, non acute renal US
cont FR and diet restriction
Patient is lungs are clear on exam though continues to be short of breath on IV Lasix 80 twice daily
Agree with right heart cath as discussed with cardiology
Discussed with his daughter Nurys on the phone in the presence of the patient and discussed the possibilities of right heart catheterization
abx per primary
dose meds renally
labs in am
Weight is down 2 kg

Critical care time spent 33
-
-
Date of Service: February 14, 2025
CC / HPI / ROS
-
Chief Complaint:
REEMA
History of Present Illness:
cr slightly down to 1.8
BP increasing trend
sob this am, s/p lasix
CXR noted pulm edema, BNP high
Review of Systems:
sob improved
no cp
wt is down
Labs
-
Labs:
WBC 14.6 10^3/uL (4.8-10.8) H 02/14/25 04:48
RBC 3.88 10^6/uL (4.70-6.10) L 02/14/25 04:48
Hgb 11.6 g/dL (13.0-18.0) L 02/14/25 04:48
Hct 34.5 % (39.0-52.0) L 02/14/25 04:48
Plt Count 259 10^3/uL (130-400) 02/14/25 04:48
Sodium 137 mmol/L (135-145) 02/14/25 04:48
Potassium 3.3 mmol/L (3.5-5.1) L 02/14/25 04:48
Chloride 102 mmol/L (98-107) 02/14/25 04:48
Carbon Dioxide 31 mmol/L (22-30) H 02/14/25 04:48
BUN 39 mg/dl (9-20) H 02/14/25 04:48
Creatinine 1.4 mg/dL (0.7-1.3) H 02/14/25 04:48
eGFR 48.04 02/14/25 04:48
Glucose 107 mg/dl (70-99) H 02/14/25 04:48
Calcium 8.6 mg/dl (8.4-10.2) 02/14/25 04:48
Rvq-L-Mqzlygxocvb Pept 13527 pg/ml 02/12/25 04:44
Albumin 3.5 g/dl (3.5-5.0) 02/08/25 08:26
Physical Exam
-
Vital Signs:
Vital Signs
Temp Pulse Resp BP Pulse Ox
97.5 F 77 22 138/77 95
02/14/25 07:20 02/14/25 10:00 02/14/25 10:00 02/14/25 10:00 02/14/25 10:19
Cardiovascular:: Regular rate and rhythm
Respiratory:: Bilateral: CTA
Lung Excursion:: Normal
Abdomen:: Nontender and Soft
Extremity Edema:: None: Bilateral:
Barros Catheter: No
[2025-02-14] MEDS: DUONEB 3 ML INH (13:09)
--- NOTE | 2025-02-14 16:13 | CM ---
F/U: Patient is off O2 now, Pulmonary signed off, other consults service signed off, and PT/OT state that patient could go home with or without PT, but has not decided ultimately so will be up to the patient. Patient doing well. PLAN: Anticipate
Home No Needs.
[2025-02-14] MEDS: LIPITOR 40 MG PO (16:56)
--- NOTE | 2025-02-14 16:57 | CM ---
F/U: Patient is off O2 now, Pulmonary signed off, other consults service signed off, and PT/OT state that patient could go home with or without PT, but has not decided ultimately so will be up to the patient. Patient doing well and linked already to
[facility]. PLAN: Anticipate Home w/ [facility].
[2025-02-14] MEDS: ATIVAN 1 MG PO (20:48)
[2025-02-14] MEDS: KCL 20 MEQ PO (20:48)
--- NOTE | 2025-02-14 23:29 | PTCARENOTE ---
[facility] Patient aaox3. Pt c/o anxiety and requested PRN Ativan, medication administered (see MAR). Sinus arrhythmia on the monitor with occasional PACs, hr 50-80s. 96% on 3L NC. Attempt was made for patient to wear
CPAP this evening, but he only tolerated it for 15 minutes before he requested to take it off. Patient placed back on 3L NC. VS and assessment as documented. Patient resting in bed with call rich in reach.
[2025-02-15] VITALS (13 sets, daily range): BP systolic 108–149; BP diastolic 51–135; PULSE 59; O2SAT 96; BMI 23.4
[2025-02-15] MEDS: HEPARIN 5000 UNITS SC ×3 (00:01→16:28)
[2025-02-15 05:24] LABS: Blood Urea Nitrogen 39 mg/dl (9-20); Calcium 8.9 mg/dl (8.4-10.2); Carbon Dioxide 34 mmol/L (22-30); Chloride 100 mmol/L (98-107); Estimated Creatinine Clearance 29 ml/min; Glucose 113 mg/dl (70-99); Potassium 4.0 mmol/L (3.5-5.1); Sodium 140 mmol/L (135-145); eGFR 38.06
--- NOTE | 2025-02-15 07:55 | W.PN.HOSP.TC ---
Today's Communication/Plan
-
Await right heart catheterization
Assessment / Plan
Assessment / Plan
Gen-awake, alert, oriented, NAD
HEENT-NC, AT, anicteric, clear oral mm
Neck-supple
CV-reg, no M, +S1/S2
Lungs-clear bilaterally
Abd-soft, NT, ND
Ext-no edema
Musculoskeletal-no cyanosis, clubbing
Skin-warm and dry
Neuro-grossly non-focal
Psych-calm, cooperative
Acute hypoxic respiratory failure -oxygenation improved, currently on 3 L nasal cannula. Chest x-ray done today 02/13 shows improvement of pulmonary edema.
Agree with pulmonary that heart failure seems to be the primary diagnosis.
COVID, influenza neg
Speech consult noted, no evidence of overt aspiration. Cannot rule out silent aspiration. Recommendation for regular solids, thin liquids.
Pt also improved with steroids yesterday-unclear if he has a reactive airway component. Steroids discontinued by pulmonary. Patient needs PFTs as outpatient
Bilateral pleural effusions -appears transudative. Likely due to heart failure. Patient had right thoracentesis 02/11, 300 cc clear yellow pleural fluid removed.
Acute on chronic HFrEF -currently on IV Lasix. Clinically improving.
Ischemic cardiomyopathy
BNP 71731
Intake output charting
Daily weights, weight is down 9 kg since admission.
Holding valsartan secondary to REEMA. Continue Coreg
Eventually may benefit from SGLT2 inhibitors
REEMA -REEMA possibly due to cardiorenal syndrome due to heart failure exacerbation. Cardiology plans on right heart catheterization today.
Developing contraction alkalosis with rising bicarbonate, 34.
Possible community-acquired pneumonia -pneumonia unlikely. Antibiotics discontinued by pulmonary.
Essential hypertension -labile blood pressures noted. Has been off valsartan for REEMA. Last night he was 93/62, this morning 147/135. Will check pressures on both arms and monitor. Discussed with nursing.
Currently on carvedilol, hydralazine, isosorbide mononitrate. Will defer to cardiology further changes.
Hypokalemia - resolved.
Normocytic anemia -hemoglobin stable.
Hyponatremia -present on admission. Resolved.
Recent STEMI with LAD stent
Continue aspirin Plavix statin, Coreg. Hold valsartan
Follow troponin
History of NSVT
Hyperlipidemia-continue statin
Enlarged prostate-continue finasteride
Lifelong non-smoker
DVT prophylaxis - heparin.
Full code
Anticipated Discharge: > 48 hours
Subjective/Interval History
-
Date of Service: February 15, 2025
Patient seen and examined, denies shortness of breath. No complaints.
Objective Data
-
Labs:
Laboratory Results
02/15/25
04:40
Sodium 140
Potassium 4.0
Chloride 100
Carbon Dioxide 34 H
BUN 39 H
Creatinine 1.7 H
Glucose 113 H
Calcium 8.9
Vital Signs:
Vital Signs
Temp Pulse Resp BP Pulse Ox
98.7 F 67 22 147/135 95
02/14/25 22:28 02/15/25 04:01 02/15/25 04:01 02/15/25 04:01 02/15/25 04:00
I&O
02/14/25 02/15/25 02/16/25
06:59 06:59 06:59
Intake Total 1140 / 1140
Output Total 2300 / 2300 1250 / 1250
Balance -2300 / -2300 -110 / -110
Review of Systems
-
History Source: Patient
All other systems: Reviewed and negative
[2025-02-15] MEDS: LOW STRENGTH ASPIRIN 81 MG PO (08:54)
[2025-02-15] MEDS: IMDUR (EXTENDED RELEASE) 30 MG PO (08:54)
[2025-02-15] MEDS: COREG 6.25 MG PO ×2 (08:54→20:30)
[2025-02-15] MEDS: APRESOLINE 25 MG PO ×2 (08:54→20:30)
[2025-02-15] MEDS: PROSCAR 5 MG PO (08:54)
[2025-02-15] MEDS: PLAVIX 75 MG PO (08:54)
[2025-02-15] MEDS: KCL 20 MEQ PO ×2 (08:55→20:30)
[2025-02-15] MEDS: PROTONIX 40 MG PO (08:55)
[2025-02-15] MEDS: LASIX 80 MG IV ×2 (08:55→16:28)
[2025-02-15] MEDS: STERILE WATER FOR INJECTION IV (08:56)
--- NOTE | 2025-02-15 10:58 | PTCARENOTE ---
Assumed care of patient this morning. He had on 3L of oxygen at start of shift. Patient then got up to use bathroom and took off the oxygen. Patient encouraged to put it back on if he feels short of breath but declined. SPO2 maintained within normal
limits. Pt was trying to take a nap and stated he keeps feeling anxious and wakes himself up. Patient asked for RN to sit with him for a few minutes. Pt did close eye and attempt to nap but then patient got a phone call. RN exited room. Pt to have
RHC today. confirmed with cardiology patient does not need to be NPO. Pt's son at bedside and was updated per RN ability. Assessment, care and VS as charted.
--- NOTE | 2025-02-15 12:24 | W.PN.NEPH.PH ---
Today's Communication / Plan
-
cont lasix, await RHC
labs in am
Assessment/Plan
-
IMP:
REEMA, possible CKD baseline cr 1.1
Acute hypoxic respiratory failure
Community-acquired pneumonia
Bilateral pleural effusions,. Thoracentesis right 300cc
Acute on chronic HFrEF 30-35%
Ischemic cardiomyopathy
Normocytic anemia
Recent STEMI with LAD stent 01/27/25
History of NSVT
Hyperlipidemia
Enlarged prostate
Plan:
recent STEMI LAD stent on 01/27 now a/w CHF flare
REEMA -cardiorenal, in setting of CHF and diuretics use
bland UA and bladder scan 102cc 02/10, low Fena and U PCR only 0.1gm/gm of cr, non acute renal US
cr is up at 1.7, non oliguric and stable wts with lasix
monitor evolving met alkalosis
await RHC
cont FR and diet restriction
abx per primary
dose meds renally
labs in am
-
-
Date of Service: February 15, 2025
CC / HPI / ROS
-
Chief Complaint:
REEMA
History of Present Illness:
cr slightly up at 1.7
BP stable
bicarb 34
Review of Systems:
sob improved
no cp
able to work wiht PT
no n/v
Labs
-
Labs:
WBC 14.6 10^3/uL (4.8-10.8) H 02/14/25 04:48
RBC 3.88 10^6/uL (4.70-6.10) L 02/14/25 04:48
Hgb 11.6 g/dL (13.0-18.0) L 02/14/25 04:48
Hct 34.5 % (39.0-52.0) L 02/14/25 04:48
Plt Count 259 10^3/uL (130-400) 02/14/25 04:48
Sodium 140 mmol/L (135-145) 02/15/25 04:40
Potassium 4.0 mmol/L (3.5-5.1) 02/15/25 04:40
Chloride 100 mmol/L (98-107) 02/15/25 04:40
Carbon Dioxide 34 mmol/L (22-30) H 02/15/25 04:40
BUN 39 mg/dl (9-20) H 02/15/25 04:40
Creatinine 1.7 mg/dL (0.7-1.3) H 02/15/25 04:40
eGFR 38.06 02/15/25 04:40
Glucose 113 mg/dl (70-99) H 02/15/25 04:40
Calcium 8.9 mg/dl (8.4-10.2) 02/15/25 04:40
Dsn-X-Hamysxjxuwm Pept 53920 pg/ml 02/12/25 04:44
Albumin 3.5 g/dl (3.5-5.0) 02/08/25 08:26
Physical Exam
-
Vital Signs:
Vital Signs
Temp Pulse Resp BP Pulse Ox
97.6 F 68 16 121/51 93
02/15/25 07:34 02/15/25 10:00 02/15/25 10:00 02/15/25 10:00 02/15/25 10:51
Cardiovascular:: Regular rate and rhythm
Respiratory:: Bilateral: CTA
Lung Excursion:: Normal
Abdomen:: Nontender and Soft
Extremity Edema:: None: Bilateral:
Barros Catheter: No
--- NOTE | 2025-02-15 12:54 | CM ---
F/U: Patient is awaiting a heart catheterization, but PT/OT is still recommending Home No Needs vs. Home PT so when patient is ready for discharge, Case Management can ask the patient/ family. PLAN: Home No Needs vs. PT.
--- NOTE | 2025-02-15 17:40 | PTCARENOTE ---
Patient taken to logging rafter laborer by 2 logging rafter laborer RN's. Son at bedside and was going to accompany him to procedural area.
--- NOTE | 2025-02-15 18:04 | ITS.CL.CATH ---
Hangar Attendant - Catheterization
Cardiac Catheterization
Procedure Report:
RIGHT HEART CATHETERIZATION
Date of Procedure: February 15, 2025
Referring: Dr. Makayla Vega
INDICATION: Ischemic cardiomyopathy with progressive renal insufficiency
Hemodynamics (mmHg):
RA (m) : 15
RV (s/d,m) : 50/8, 16
PA (s/d, m) : 48/24, 32
PCWP (m) : 28
Ao: 159 / 82, 100
Cardiac Output : 3.1 L/min and Cardiac Index : 1.7 L/min/m-2
Systemic vascular resistance: 27.4 Wood units or 2194 coinc-kxq-mi(-5)
Pulmonary vascular resistance: 1.29 Wood units or 103 tqpzv-xpd-ox(-5)
RADIATION SUMMARY: Fluoro Time (min): 2.3, Dose (mGy): 18.5, DAP (Gy.cm2) : 2.8
CONCLUSION:
1. Elevated left ventricular filling pressures and significantly reduced cardiac output/cardiac index
Copy to: Dr. Makayla Vega
[2025-02-15] MEDS: LIPITOR 40 MG PO (18:29)
[2025-02-15] MEDS: ATIVAN 1 MG PO (20:31)
[2025-02-16] VITALS (16 sets, daily range): BP systolic 84–164; BP diastolic 55–79; BMI 23.0
[2025-02-16] MEDS: HEPARIN SC (00:50)
[2025-02-16 06:19] LABS: Blood Urea Nitrogen 40 mg/dl (9-20); Calcium 8.8 mg/dl (8.4-10.2); Chloride 99 mmol/L (98-107); Estimated Creatinine Clearance 29 ml/min; Glucose 109 mg/dl (70-99); Potassium 4.0 mmol/L (3.5-5.1); Sodium 139 mmol/L (135-145); eGFR 38.06
[2025-02-16 06:27] LABS: Carbon Dioxide 33 mmol/L (22-30)
--- NOTE | 2025-02-16 07:45 | W.PN.HOSP.TC ---
Today's Communication/Plan
-
Continue IV Lasix
Transfer to telemetry
Assessment / Plan
Assessment / Plan
Gen-awake, alert, oriented, NAD
HEENT-NC, AT, anicteric, clear oral mm
Neck-supple
CV-reg, no M, +S1/S2
Lungs-clear bilaterally
Abd-soft, NT, ND
Ext-no edema
Musculoskeletal-no cyanosis, clubbing
Skin-warm and dry
Neuro-grossly non-focal
Psych-calm, cooperative
Acute hypoxic respiratory failure -oxygenation improved, and intermittently on nasal cannula oxygen, currently off. Chest x-ray done today 02/13 shows improvement of pulmonary edema.
Primary dedicated regional driver of respiratory failure is pulmonary edema related to acute heart failure exacerbation.
COVID, influenza neg
Speech consult noted, no evidence of overt aspiration. Cannot rule out silent aspiration. Recommendation for regular solids, thin liquids.
Pt also improved with steroids yesterday-unclear if he has a reactive airway component. Steroids discontinued by pulmonary. Patient needs PFTs as outpatient
Bilateral pleural effusions -appears transudative. Likely due to heart failure. Patient had right thoracentesis 02/11, 300 cc clear yellow pleural fluid removed.
Acute on chronic HFrEF -currently on IV Lasix. Clinically improving.
Ischemic cardiomyopathy
BNP 78961
Intake output charting
Daily weights, weight is down 10 kg since admission.
Holding valsartan secondary to REEMA. Continue Coreg
Eventually may benefit from SGLT2 inhibitors
Right heart catheterization done 02/15, PCWP 28, cardiac index 1.7.
REEMA -REEMA possibly due to cardiorenal syndrome due to heart failure exacerbation. Creatinine stable at 1.7. Monitor closely on IV Lasix.
Mild contraction alkalosis noted. Will monitor.
Essential hypertension -stable. Has been off valsartan for REEMA.
Currently on carvedilol, hydralazine, isosorbide mononitrate. Will defer to cardiology further changes.
Hypokalemia - resolved.
Normocytic anemia -hemoglobin stable.
Hyponatremia -present on admission. Resolved.
Recent STEMI with LAD stent
Continue aspirin Plavix statin, Coreg. Hold valsartan
Follow troponin
History of NSVT
Hyperlipidemia-continue statin
Enlarged prostate-continue finasteride
Lifelong non-smoker
DVT prophylaxis - heparin.
Full code
Anticipated Discharge: > 48 hours
Subjective/Interval History
-
Date of Service: February 16, 2025
Patient seen and examined, no complaints.
Objective Data
-
Labs:
Laboratory Results
02/16/25
05:31
Sodium 139
Potassium 4.0
Chloride 99
Carbon Dioxide 33 H
BUN 40 H
Creatinine 1.7 H
Glucose 109 H
Calcium 8.8
Vital Signs:
Vital Signs
Temp Pulse Resp BP Pulse Ox
98.5 F 61 12 124/67 94
02/16/25 03:00 02/16/25 06:00 02/16/25 06:00 02/16/25 06:00 02/16/25 06:00
I&O
02/15/25 02/16/25 02/17/25
06:59 06:59 06:59
Intake Total 1140 / 1140 240 / 240
Output Total 1650 / 1650 1400 / 1400
Balance -510 / -510 -1160 / -1160
Review of Systems
-
History Source: Patient
All other systems: Reviewed and negative
--- NOTE | 2025-02-16 08:20 | PTCARENOTE ---
Received patient following change of shift. Patient is status post RHC and remains on bedrest with site checks every four hours. AAOx3.VSS. Pt resting comfortably in bed with the call rich within reach.
[2025-02-16] MEDS: PEPCID 20 MG PO (08:21)
[2025-02-16] MEDS: APRESOLINE 25 MG PO ×2 (08:21→19:46)
[2025-02-16] MEDS: LOW STRENGTH ASPIRIN 81 MG PO (08:23)
[2025-02-16] MEDS: PLAVIX 75 MG PO (08:23)
[2025-02-16] MEDS: KCL 20 MEQ PO ×2 (08:23→19:44)
[2025-02-16] MEDS: PROTONIX 40 MG PO (08:23)
[2025-02-16] MEDS: IMDUR (EXTENDED RELEASE) 30 MG PO (08:23)
[2025-02-16] MEDS: COREG 6.25 MG PO ×2 (08:23→19:45)
[2025-02-16] MEDS: LASIX 80 MG IV ×2 (08:24→15:22)
[2025-02-16] MEDS: HEPARIN 5000 UNITS SC ×2 (08:24→15:22)
[2025-02-16] MEDS: STERILE WATER FOR INJECTION IV (11:13)
--- NOTE | 2025-02-16 11:27 | W.PN.NEPH.PH ---
Addendum entered and electronically signed by Suha Zaragoza MD 02/16/25 12:58:
reviewed with daughter on phone in detail
Original Note:
Today's Communication / Plan
-
cont lasix and follow labs
Assessment/Plan
-
IMP:
REEMA, possible CKD baseline cr 1.1
Acute hypoxic respiratory failure
Community-acquired pneumonia
Bilateral pleural effusions,. Thoracentesis right 300cc
Acute on chronic HFrEF 30-35%
Ischemic cardiomyopathy
Normocytic anemia
Recent STEMI with LAD stent 01/27/25
History of NSVT
Hyperlipidemia
Enlarged prostate
Plan:
recent STEMI LAD stent on 01/27 now a/w CHF flare
REEMA -cardiorenal, in setting of CHF and diuretics use
bland UA and bladder scan 102cc 02/10, low Fena and U PCR only 0.1gm/gm of cr, non acute renal US
cr stable at 1.7, non oliguric and improving wts with lasix
s/p RHC 02/15 with elevated PCWP of 28
monitor evolving met alkalosis
cont FR and diet restriction
abx per primary
dose meds renally
labs in am
-
-
Date of Service: February 16, 2025
CC / HPI / ROS
-
Chief Complaint:
REEMA
History of Present Illness:
cr slightly up at 1.7
BP stable
bicarb 33
wt decreasing
Review of Systems:
sob improved
no cp
no n/v
Labs
-
Labs:
WBC 14.6 10^3/uL (4.8-10.8) H 02/14/25 04:48
RBC 3.88 10^6/uL (4.70-6.10) L 02/14/25 04:48
Hgb 11.6 g/dL (13.0-18.0) L 02/14/25 04:48
Hct 34.5 % (39.0-52.0) L 02/14/25 04:48
Plt Count 259 10^3/uL (130-400) 02/14/25 04:48
Sodium 139 mmol/L (135-145) 02/16/25 05:31
Potassium 4.0 mmol/L (3.5-5.1) 02/16/25 05:31
Chloride 99 mmol/L (98-107) 02/16/25 05:31
Carbon Dioxide 33 mmol/L (22-30) H 02/16/25 05:31
BUN 40 mg/dl (9-20) H 02/16/25 05:31
Creatinine 1.7 mg/dL (0.7-1.3) H 02/16/25 05:31
eGFR 38.06 02/16/25 05:31
Glucose 109 mg/dl (70-99) H 02/16/25 05:31
Calcium 8.8 mg/dl (8.4-10.2) 02/16/25 05:31
Kpw-L-Gpovsqecijp Pept 47182 pg/ml 02/12/25 04:44
Albumin 3.5 g/dl (3.5-5.0) 02/08/25 08:26
Physical Exam
-
Vital Signs:
Vital Signs
Temp Pulse Resp BP Pulse Ox
97.8 F 69 12 151/73 96
02/16/25 11:00 02/16/25 08:24 02/16/25 06:00 02/16/25 08:24 02/16/25 08:00
Cardiovascular:: Regular rate and rhythm
Respiratory:: Bilateral: CTA
Lung Excursion:: Normal
Abdomen:: Nontender and Soft
Extremity Edema:: None: Bilateral:
Barros Catheter: No
--- NOTE | 2025-02-16 15:42 | W.PN.CARDCBS ---
Today's Communication / Plan
-
Continue efforts for diuresis and optimization of goal-directed medical therapy for ongoing heart failure with reduced ejection fraction after large anterior ME
Pending his response the next 24 hours can consider addition of inotropes
Impression / Plan
-
.
PCP: Dr. Self
Primary Supervisor Hand Silvering: Dr. Tere Lombardi
Impression:
Presentation with likely multifactorial dyspnea 02/08/2025
Acute hypoxic respiratory failure
Acute HFrEF
CAD
s/p acute anterior STEMI with peak troponin 326 01/27/2025
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
ICM EF 35-40% by v-gram 01/27/25, 35% by echo 01/29/25
Elevated troponin, peak 0.9 trending down (last troponin prior to discharge from last admission was 326)
REEMA
HTN
Hypercholesterolemia
Reported h/o valvular heart disease and evidence of MR at time of cath 01/27/25
Witnessed BARTOLOME without h/o BARTOLOME 01/2025
intolerant to attempts at CPAP and BiPAP 01/27/25 into 01/28/25
PNA
Pleural effusion
s/p successful right sided thoracentesis for 300 mL of clear yellow pleural fluid 02/11/2025
Residual small left-sided pleural effusion on CXR 02/11/2025
Echo 01/28/25: EF 35%, akinesis of the mid inferoseptum, apical septum and apex with hypokinesis of the mid inferior wall and severe hypokinesis of the mid anterior wall, mod eccentric MR, mild peak/mean 29/15 mmHg and mild to mod aortic
regurgitation, mild TR with PAP 58 mmHg
Limited echo 01/31/25: EF 35%, akinesis of mid inferoseptum and inferior wall, apical septum and apex, hypokinesis of distal anterior wall
Echo 02/09/2025: EF 30 to 35%,entire septum and apex are akinetic. The entire anterior wall, entire inferior wall, basal and mid anterolateral wall, and apical lateral segment are hypokinetic,NL RV size and fxn, mild to moderate peak/mean 28/14
mmHg, mild to moderate MR with eccentric jet, mild to moderate TR with mild PHTN and PAP 53 mmHg, compared to echo 01/28/2025 and 01/31/2025 the findings are overall similar
Plan:
Medically complex to 89-year-old gentleman with recent admission for large anterior STEMI [peak troponin 326] with resultant ischemic cardiomyopathy EF 30-35%, status post LAD PCI on 01/27/2025 who presents back with acute on chronic HFrEF
- Right heart catheterization February 15, 2025 with evidence for elevated LV filling pressures, RA 15, PA 48/24 with a mean of 32 and a wedge pressure of 28. Reduced cardiac output/cardiac index, 3.1 L/min and 1.7 L/minute/m-2 with increased
SVR, 2194
-He is making slow improvements with IV diuresis with an additional 3 pound weight loss overnight and overall 9 pound weight loss this admission.
-Continue IV Lasix and monitor electrolytes/renal function closely. Patient is evolving and metabolic alkalosis
-May need to consider inotropes, Milrinone pending response over the next 24 hours
- s/p right thoracentesis for 300 cc Feb 11; Repeat chest x-ray February 13 with trace bilateral pleural effusion
-Goal-directed medical therapy limited by renal insufficiency and borderline blood pressure: Continue carvedilol 6.25 mg twice daily, hydralazine 25 mg twice daily, Imdur 30 mg twice daily.
-If renal function continues to improve and blood pressure allows would add Farxiga, 0 co-pay. Patient had previously been on losartan which was discontinued secondary to renal insufficiency; Entresto was not covered by patient's insurance.
-Will need outpatient repeat echocardiogram 3 months after revascularization and on goal-directed medical therapy to reassess EF. If EF remains less than 35% consider ICD.
Recent large anterior STEMI status post PCI to the LAD
-No chest pain or angina.
-Continue uninterrupted aspirin and Plavix
-Continue statin.
Renal insufficiency/Cardiorenal Syndrome
-Monitor renal function closely.
-Appreciate nephrology input
Witnessed BARTOLOME without h/o BARTOLOME 01/2025
-intolerant to attempts at CPAP and BiPAP 01/27/25 into 01/28/25
Continue efforts of PT/OT/cardiac rehab
Progress Note - Supervisor Hand Silvering
Subjective
Date of Service: February 16, 2025
Patient seen and examined. Offers no new complaints except for fatigue and ongoing dyspnea on exertion with minimal activity such as ambulating to the restroom
Objective
Labs:
02/14/25 04:48
02/16/25 05:31
Labs
Hgb 11.6 g/dL (13.0-18.0) L 02/14/25 04:48
Hct 34.5 % (39.0-52.0) L 02/14/25 04:48
Plt Count 259 10^3/uL (130-400) 02/14/25 04:48
PT 15.4 Sec (11.4-14.6) H 02/08/25 08:26
INR 1.19 02/08/25 08:26
APTT 31.0 Sec (23.4-35.0) 02/08/25 08:26
Sodium 139 mmol/L (135-145) 02/16/25 05:31
Potassium 4.0 mmol/L (3.5-5.1) 02/16/25 05:31
BUN 40 mg/dl (9-20) H 02/16/25 05:31
Creatinine 1.7 mg/dL (0.7-1.3) H 02/16/25 05:31
Glucose 109 mg/dl (70-99) H 02/16/25 05:31
Vital Signs and I&O:
Vital Signs
Temp Pulse Resp BP Pulse Ox
97.8 F 64 21 118/72 93
02/16/25 11:00 02/16/25 15:22 02/16/25 10:05 02/16/25 15:22 02/16/25 08:00
Vital Signs
Temp Pulse Resp BP Pulse Ox
97.8 F 64 21 118/72 93
02/16/25 11:00 02/16/25 15:22 02/16/25 10:05 02/16/25 15:22 02/16/25 08:00
Intake & Output
02/14/25 02/15/25 02/16/25 02/17/25
06:59 06:59 06:59 06:59
Intake Total 1140 / 1140 240 / 240
Output Total 2300 / 2300 1650 / 1650 1400 / 1400 425 / 425
Balance -2300 / -2300 -510 / -510 -1160 / -1160 -425 / -425
Physical Exam
Physical Exam
General: 89-year-old gentleman who looks chronically ill, no acute distress. Lying supine
Heart: Regular, positive S1-S2. 2/6 SM
Lungs: Bronchovesicular breath sounds with coarse rhonchi. Fine crackles right base.
Abd: Positive BS, NT/ND, neg rebound/rigidity/guarding
Ext: No edema. Warm distal extremities
[2025-02-16] MEDS: LIPITOR 40 MG PO (17:49)
[2025-02-16] MEDS: ATIVAN 1 MG PO (19:45)
[2025-02-17] VITALS (13 sets, daily range): BP systolic 99–144; BP diastolic 43–79; BMI 23.1
[2025-02-17] MEDS: HEPARIN 5000 UNITS SC ×3 (01:00→16:26)
[2025-02-17 04:06] LABS: Hematocrit 38.6 % (39.0-52.0); Hemoglobin 12.5 g/dL (13.0-18.0); Mean Corp Hgb Conc. 32.4 g/dL (33.0-37.0); Mean Corpuscular Volume 92.1 fL (80.0-94.0); Nucleated Red Blood Cells % 0 % (-); Platelet Count 254 10^3/uL (130-400); Red Cell Dist. Width 15.4 % (11.5-14.5)
[2025-02-17 04:29] LABS: Blood Urea Nitrogen 45 mg/dl (9-20); Calcium 8.8 mg/dl (8.4-10.2); Carbon Dioxide 33 mmol/L (22-30); Chloride 100 mmol/L (98-107); Estimated Creatinine Clearance 28 ml/min; Glucose 115 mg/dl (70-99); Potassium 4.1 mmol/L (3.5-5.1); Sodium 139 mmol/L (135-145); eGFR 35.54
--- NOTE | 2025-02-17 07:37 | PTCARENOTE ---
Assumed care of patient at 23:00. Pt aaox3, able to make needs known. NSR/sinus arrhythmia on monitor with PACs. Lungs clear on RA. Continent of bowel and bladder. Last BM 02/16. Skin intact. Assist x1 OOB. VSS. Care ongoing.
--- NOTE | 2025-02-17 07:51 | W.PN.HOSP.TC ---
Today's Communication/Plan
-
Continue diuresis
Assessment / Plan
Assessment / Plan
Gen-awake, alert, oriented, NAD
HEENT-NC, AT, anicteric, clear oral mm
Neck-supple
CV-reg, no M, +S1/S2
Lungs-clear bilaterally
Abd-soft, NT, ND
Ext-no edema
Musculoskeletal-no cyanosis, clubbing
Skin-warm and dry
Neuro-grossly non-focal
Psych-calm, cooperative
Acute hypoxic respiratory failure -oxygenation improved, now on room air.
Chest x-ray 02/13 shows improvement of pulmonary edema.
Primary driver recruiter of respiratory failure is pulmonary edema related to acute heart failure exacerbation.
COVID, influenza neg
Speech consult noted, no evidence of overt aspiration. Cannot rule out silent aspiration. Recommendation for regular solids, thin liquids.
Pt also improved with steroids yesterday-unclear if he has a reactive airway component. Steroids discontinued by pulmonary. Patient needs PFTs as outpatient
Bilateral pleural effusions -appears transudative. Likely due to heart failure. Patient had right thoracentesis 02/11, 300 cc clear yellow pleural fluid removed. Cytology negative.
Acute on chronic HFrEF -currently on IV Lasix. Clinically improving.
Echocardiogram shows LVEF 30 to 35% with regional wall motion abnormalities. Mild to moderate MR, moderate TR.
Ischemic cardiomyopathy
BNP 96591
Intake output charting
Weight is down 10 kg since admission.
Holding valsartan secondary to REEMA. Continue Coreg
Eventually may benefit from SGLT2 inhibitors
Right heart catheterization done 02/15, PCWP 28, cardiac index 1.7.
REEMA -REEMA possibly due to cardiorenal syndrome due to heart failure exacerbation. Creatinine stable at 1.8. Monitor closely on IV Lasix.
Mild contraction alkalosis noted. Will monitor.
Essential hypertension -stable. Has been off valsartan for REEMA.
Currently on carvedilol, hydralazine, isosorbide mononitrate. Will defer to cardiology further changes.
Hypokalemia - resolved.
Normocytic anemia -hemoglobin stable.
Hyponatremia -present on admission. Resolved.
Recent STEMI with LAD stent
Continue aspirin Plavix statin, Coreg. Hold valsartan
Follow troponin
History of NSVT
Hyperlipidemia-continue statin
Enlarged prostate-continue finasteride
Lifelong non-smoker
DVT prophylaxis - heparin.
Full code
Anticipated Discharge: > 48 hours
Subjective/Interval History
-
Date of Service: February 17, 2025
Patient seen and examined. No complaints.
Objective Data
-
Labs:
Laboratory Results
02/17/25
03:51
WBC 12.5 H
Hgb 12.5 L
Hct 38.6 L
Plt Count 254
Sodium 139
Potassium 4.1
Chloride 100
Carbon Dioxide 33 H
BUN 45 H
Creatinine 1.8 H
Glucose 115 H
Calcium 8.8
Vital Signs:
Vital Signs
Temp Pulse Resp BP Pulse Ox
97.6 F 57 17 131/59 94
02/17/25 07:41 02/17/25 04:00 02/17/25 04:00 02/17/25 04:00 02/17/25 00:00
I&O
02/16/25 02/17/25 02/18/25
06:59 06:59 06:59
Intake Total 240 / 240
Output Total 1400 / 1400 925 / 925
Balance -1160 / -1160 -925 / -925
Review of Systems
-
History Source: Patient
All other systems: Reviewed and negative
[2025-02-17] MEDS: LASIX 80 MG IV (08:56)
[2025-02-17] MEDS: COREG 6.25 MG PO ×2 (08:59→20:08)
[2025-02-17] MEDS: PROSCAR 5 MG PO (08:59)
[2025-02-17] MEDS: PLAVIX 75 MG PO (08:59)
[2025-02-17] MEDS: PROTONIX 40 MG PO (08:59)
[2025-02-17] MEDS: APRESOLINE 25 MG PO ×3 (08:59→21:43)
[2025-02-17] MEDS: IMDUR (EXTENDED RELEASE) 30 MG PO (08:59)
[2025-02-17] MEDS: LOW STRENGTH ASPIRIN 81 MG PO (08:59)
[2025-02-17] MEDS: KCL 20 MEQ PO (08:59)
--- NOTE | 2025-02-17 13:31 | W.PN.NEPH.PH ---
Today's Communication / Plan
-
follow labs
Assessment/Plan
-
IMP:
REEMA, possible CKD baseline cr 1.1
Acute hypoxic respiratory failure
Community-acquired pneumonia
Bilateral pleural effusions,. Thoracentesis right 300cc
Acute on chronic HFrEF 30-35%
Ischemic cardiomyopathy
Normocytic anemia
Recent STEMI with LAD stent 01/27/25
History of NSVT
Hyperlipidemia
Enlarged prostate
Plan:
recent STEMI LAD stent on 01/27 now a/w CHF flare
REEMA -cardiorenal, in setting of CHF and diuretics use
bland UA and bladder scan 102cc 02/10, low Fena and U PCR only 0.1gm/gm of cr, non acute renal US
cr slightly up at 1.8, non oliguric , lasix to be changed to po per cards
s/p RHC 02/15 with elevated PCWP of 28
monitor evolving met alkalosis
cont FR and diet restriction
abx per primary
dose meds renally
labs in am
d/w cards
-
-
Date of Service: February 17, 2025
CC / HPI / ROS
-
Chief Complaint:
REEMA
History of Present Illness:
cr slightly up at 1.8
BP stable
bicarb 33-unchanged
wt decreasing
Review of Systems:
sob improved
no cp
no n/v
Labs
-
Labs:
WBC 12.5 10^3/uL (4.8-10.8) H 02/17/25 03:51
RBC 4.19 10^6/uL (4.70-6.10) L 02/17/25 03:51
Hgb 12.5 g/dL (13.0-18.0) L 02/17/25 03:51
Hct 38.6 % (39.0-52.0) L 02/17/25 03:51
Plt Count 254 10^3/uL (130-400) 02/17/25 03:51
Sodium 139 mmol/L (135-145) 02/17/25 03:51
Potassium 4.1 mmol/L (3.5-5.1) 02/17/25 03:51
Chloride 100 mmol/L (98-107) 02/17/25 03:51
Carbon Dioxide 33 mmol/L (22-30) H 02/17/25 03:51
BUN 45 mg/dl (9-20) H 02/17/25 03:51
Creatinine 1.8 mg/dL (0.7-1.3) H 02/17/25 03:51
eGFR 35.54 02/17/25 03:51
Glucose 115 mg/dl (70-99) H 02/17/25 03:51
Calcium 8.8 mg/dl (8.4-10.2) 02/17/25 03:51
Gqh-K-Buxrknyvvmy Pept 31379 pg/ml 02/12/25 04:44
Albumin 3.5 g/dl (3.5-5.0) 02/08/25 08:26
Physical Exam
-
Vital Signs:
Vital Signs
Temp Pulse Resp BP Pulse Ox
97.7 F 57 17 131/59 95
02/17/25 11:50 02/17/25 04:00 02/17/25 04:00 02/17/25 04:00 02/17/25 08:33
Cardiovascular:: Regular rate and rhythm
Respiratory:: Bilateral: CTA
Lung Excursion:: Normal
Abdomen:: Nontender and Soft
Extremity Edema:: None: Bilateral:
Barros Catheter: No
--- NOTE | 2025-02-17 13:45 | W.PN.CARDCBS ---
Addendum entered and electronically signed by Makayla Vega DO 02/17/25 14:06:
Spoke with daughter Angie and provided update. She raised concerns about Ativan which she does not normally take at home which is might be causing some of his fatigue. Will hold off further lorazepam
Original Note:
Today's Communication / Plan
-
Increase hydralazine to TID and continue Imdur for afterload reduction
Transition to oral torsemide
Stable for transfer to IVU
Impression / Plan
-
.
PCP: Dr. Self
Primary Order Entry Technician: Dr. Tere Lombardi
Impression:
Presentation with likely multifactorial dyspnea 02/08/2025
Acute hypoxic respiratory failure
Acute HFrEF
CAD
s/p acute anterior STEMI with peak troponin 326 01/27/2025
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
ICM EF 35-40% by v-gram 01/27/25, 35% by echo 01/29/25
Elevated troponin, peak 0.9 trending down (last troponin prior to discharge from last admission was 326)
REEMA
HTN
Hypercholesterolemia
Reported h/o valvular heart disease and evidence of MR at time of cath 01/27/25
Witnessed BARTOLOME without h/o BARTOLOME 01/2025
intolerant to attempts at CPAP and BiPAP 01/27/25 into 01/28/25
PNA
Pleural effusion
s/p successful right sided thoracentesis for 300 mL of clear yellow pleural fluid 02/11/2025
Residual small left-sided pleural effusion on CXR 02/11/2025
Echo 01/28/25: EF 35%, akinesis of the mid inferoseptum, apical septum and apex with hypokinesis of the mid inferior wall and severe hypokinesis of the mid anterior wall, mod eccentric MR, mild peak/mean 29/15 mmHg and mild to mod aortic
regurgitation, mild TR with PAP 58 mmHg
Limited echo 01/31/25: EF 35%, akinesis of mid inferoseptum and inferior wall, apical septum and apex, hypokinesis of distal anterior wall
Echo 02/09/2025: EF 30 to 35%,entire septum and apex are akinetic. The entire anterior wall, entire inferior wall, basal and mid anterolateral wall, and apical lateral segment are hypokinetic,NL RV size and fxn, mild to moderate peak/mean 28/14
mmHg, mild to moderate MR with eccentric jet, mild to moderate TR with mild PHTN and PAP 53 mmHg, compared to echo 01/28/2025 and 01/31/2025 the findings are overall similar
Plan:
Medically complex to 89-year-old gentleman with recent admission for large anterior STEMI [peak troponin 326] with resultant ischemic cardiomyopathy EF 30-35%, status post LAD PCI on 01/27/2025 who presents back with acute on chronic HFrEF
- Right heart catheterization February 15, 2025 with evidence for elevated LV filling pressures, RA 15, PA 48/24 with a mean of 32 and a wedge pressure of 28. Reduced cardiac output/cardiac index, 3.1 L/min and 1.7 L/minute/m-2 with increased
SVR, 2194
- s/p right thoracentesis for 300 cc Feb 11; Repeat chest x-ray February 13 with trace bilateral pleural effusion
-He is making slow improvements with IV diuresis with evolving metabolic alkalosis and increased creatinine
-Patient was ambulated in the peng with nursing and walked without symptoms keeping heart rates in the 60s and 70s, blood pressure 129/68 mmHg and satting greater than 96% throughout.
-Given improved symptoms we will hold off inotropes
-Goal-directed medical therapy limited by renal insufficiency and borderline blood pressure: Continue carvedilol 6.25 mg twice daily,Imdur 30 mg twice daily.
-Increase hydralazine to 25 mg 3 times daily
-Discussed diuretics with nephrology. Will transition from IV Lasix to oral torsemide 20mg BID
-Would monitor the next 24-48 hours on oral diuretics
-Will need outpatient repeat echocardiogram 3 months after revascularization and on goal-directed medical therapy to reassess EF. If EF remains less than 35% consider ICD.
Recent large anterior STEMI status post PCI to the LAD
-No chest pain or angina.
-Continue uninterrupted aspirin and Plavix
-Continue statin.
Renal insufficiency/Cardiorenal Syndrome
-Monitor renal function closely.
-Appreciate nephrology input
Witnessed BARTOLOME without h/o BARTOLOME 01/2025
-intolerant to attempts at CPAP and BiPAP 01/27/25 into 01/28/25
Continue efforts of PT/OT/cardiac rehab
Okay to transfer to IVU
Progress Note - Order Entry Technician
Subjective
Date of Service: February 17, 2025
Seen and examined. Patient ambulating in room and later ambulated in unit with nursing with stable hemodynamics.
Objective
Labs:
02/17/25 03:51
02/17/25 03:51
Labs
Hgb 12.5 g/dL (13.0-18.0) L 02/17/25 03:51
Hct 38.6 % (39.0-52.0) L 02/17/25 03:51
Plt Count 254 10^3/uL (130-400) 02/17/25 03:51
PT 15.4 Sec (11.4-14.6) H 02/08/25 08:26
INR 1.19 02/08/25 08:26
APTT 31.0 Sec (23.4-35.0) 02/08/25 08:26
Sodium 139 mmol/L (135-145) 02/17/25 03:51
Potassium 4.1 mmol/L (3.5-5.1) 02/17/25 03:51
BUN 45 mg/dl (9-20) H 02/17/25 03:51
Creatinine 1.8 mg/dL (0.7-1.3) H 02/17/25 03:51
Glucose 115 mg/dl (70-99) H 02/17/25 03:51
Vital Signs and I&O:
Vital Signs
Temp Pulse Resp BP Pulse Ox
97.7 F 57 17 131/59 95
02/17/25 11:50 02/17/25 04:00 02/17/25 04:00 02/17/25 04:00 02/17/25 08:33
Vital Signs
Temp Pulse Resp BP Pulse Ox
97.7 F 57 17 131/59 95
02/17/25 11:50 02/17/25 04:00 02/17/25 04:00 02/17/25 04:00 02/17/25 08:33
Intake & Output
02/15/25 02/16/25 02/17/25 02/18/25
06:59 06:59 06:59 06:59
Intake Total 1140 / 1140 240 / 240
Output Total 1650 / 1650 1400 / 1400 925 / 925 125 / 125
Balance -510 / -510 -1160 / -1160 -925 / -925 -125 / -125
Physical Exam
Physical Exam
General: 89-year-old gentleman no acute distress. Lying supine
Heart: Regular, positive S1-S2. 2/6 SM
Lungs: Bronchovesicular breath sounds with coarse rhonchi. Fine crackles right base.
Abd: Positive BS, NT/ND, neg rebound/rigidity/guarding
Ext: No edema. Warm distal extremities
--- NOTE | 2025-02-17 16:19 | PTCARENOTE ---
Pt ambulated with nurse to end of hallway and back. SaO2 96% on room air. Denied palpitations of dyspnea. HR 60s - 70s. BP 129/68.
[2025-02-17] MEDS: DEMADEX 20 MG PO (16:26)
[2025-02-17] MEDS: LIPITOR 40 MG PO (16:26)
[2025-02-17] MEDS: DESYREL 12.5 MG PO (21:43)
[2025-02-17] MEDS: HEPARIN SC (23:29)
[2025-02-18] VITALS (12 sets, daily range): BP systolic 84–163; BP diastolic 46–83; O2SAT 97; BMI 22.8; BMI 23.2
[2025-02-18 05:10] LABS: Blood Urea Nitrogen 45 mg/dl (9-20); Calcium 9.3 mg/dl (8.4-10.2); Carbon Dioxide 35 mmol/L (22-30); Chloride 96 mmol/L (98-107); Estimated Creatinine Clearance 25 ml/min; Glucose 136 mg/dl (70-99); Potassium 4.0 mmol/L (3.5-5.1); Sodium 134 mmol/L (135-145); eGFR 31.31
[2025-02-18] MEDS: LOW STRENGTH ASPIRIN 81 MG PO (08:50)
[2025-02-18] MEDS: PROTONIX 40 MG PO (08:50)
[2025-02-18] MEDS: PLAVIX 75 MG PO (08:51)
[2025-02-18] MEDS: PEPCID 20 MG PO (08:51)
[2025-02-18] MEDS: DEMADEX 20 MG PO ×2 (08:51→15:50)
[2025-02-18] MEDS: IMDUR (EXTENDED RELEASE) 30 MG PO (08:51)
[2025-02-18] MEDS: APRESOLINE 25 MG PO ×3 (08:51→20:59)
[2025-02-18] MEDS: HEPARIN 5000 UNITS SC ×2 (08:51→15:52)
[2025-02-18] MEDS: COREG 6.25 MG PO ×2 (08:51→20:53)
[2025-02-18] MEDS: KCL 20 MEQ PO (08:51)
--- NOTE | 2025-02-18 09:25 | W.PN.CARDCBS ---
Today's Communication / Plan
-
Transition from IV diuresis to oral torsemide 20 mg BID.
Creatinine rising to 2.
Appreciate nephrology input; if creatinine continues to worsen, nephrology to consider checking for obstructive causes
As pt improved, did not receive inotropic therapy
Wt continues to come down
Cont Goal-directed medical therapy limited by renal insufficiency and borderline blood pressure: Continue carvedilol 6.25 mg twice daily,Imdur 30 mg twice daily, Hydralazine 25 mg TID
Will need outpatient repeat echocardiogram in next 3 months after revascularization and on goal-directed medical therapy to reassess EF. If EF remains less than 35% consider ICD.
Recent large anterior STEMI status post PCI to the LAD
Cont DAPT with ASA and Plavix (Transitioned off Brilinta last admit with dyspnea)
Cont statin, LDL goal <70
Impression / Plan
-
.
PCP: Dr. Self
Primary Ore Crushing Dust Collector: Dr. Tere Lombardi
Impression:
Presentation with likely multifactorial dyspnea 02/08/2025
Acute hypoxic respiratory failure
Acute HFrEF
Cardiorenal syndrome
CAD
s/p acute anterior STEMI with peak troponin 326 01/27/2025
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
ICM EF 35-40% by v-gram 01/27/25, 35% by echo 01/29/25
Elevated troponin, peak 0.9 trending down (last troponin prior to discharge from last admission was 326)
REEMA
HTN
Hypercholesterolemia
Reported h/o valvular heart disease and evidence of MR at time of cath 01/27/25
Witnessed BARTOLOME without h/o BARTOLOME 01/2025
intolerant to attempts at CPAP and BiPAP 01/27/25 into 01/28/25
PNA
Pleural effusion
s/p successful right sided thoracentesis for 300 mL of clear yellow pleural fluid 02/11/2025
Residual small left-sided pleural effusion on CXR 02/11/2025
Echo 01/28/25: EF 35%, akinesis of the mid inferoseptum, apical septum and apex with hypokinesis of the mid inferior wall and severe hypokinesis of the mid anterior wall, mod eccentric MR, mild peak/mean 29/15 mmHg and mild to mod aortic
regurgitation, mild TR with PAP 58 mmHg
Limited echo 01/31/25: EF 35%, akinesis of mid inferoseptum and inferior wall, apical septum and apex, hypokinesis of distal anterior wall
Echo 02/09/2025: EF 30 to 35%,entire septum and apex are akinetic. The entire anterior wall, entire inferior wall, basal and mid anterolateral wall, and apical lateral segment are hypokinetic,NL RV size and fxn, mild to moderate peak/mean 28/14
mmHg, mild to moderate MR with eccentric jet, mild to moderate TR with mild PHTN and PAP 53 mmHg, compared to echo 01/28/2025 and 01/31/2025 the findings are overall similar
Plan:
Medically complex to 89-year-old gentleman with recent admission for large anterior STEMI [peak troponin 326] with resultant ischemic cardiomyopathy EF 30-35%, status post LAD PCI on 01/27/2025 who presents back with acute on chronic HFrEF
Right heart cath Feb 15, 2025 with evidence for elevated LV filling pressures, RA 15, PA 48/24 with a mean of 32 and a wedge pressure of 28. Reduced cardiac output/cardiac index, 3.1 L/min and 1.7 L/minute/m-2 with increased SVR, 2194
s/p right thoracentesis for 300 cc Feb 11; Repeat chest x-ray February 13 with trace bilateral pleural effusion
Transition from IV diuresis to oral torsemide 20 mg BID.
Creatinine rising to 2.
Appreciate nephrology input; if creatinine continues to worsen, nephrology to consider checking for obstructive causes
As pt improved, did not receive inotropic therapy
Wt continues to come down
Cont Goal-directed medical therapy limited by renal insufficiency and borderline blood pressure: Continue carvedilol 6.25 mg twice daily,Imdur 30 mg twice daily, Hydralazine 25 mg TID
Will need outpatient repeat echocardiogram in next 3 months after revascularization and on goal-directed medical therapy to reassess EF. If EF remains less than 35% consider ICD.
Recent large anterior STEMI status post PCI to the LAD
Cont DAPT with ASA and Plavix (Transitioned off Brilinta last admit with dyspnea)
Cont statin, LDL goal <70
Witnessed BARTOLOME without h/o BARTOLOME 01/2025
Intolerant to attempts at CPAP and BiPAP 01/27/25 into 01/28/25
Continue efforts of PT/OT/cardiac rehab
Discussed with nephrology
Progress Note - Ore Crushing Dust Collector
Subjective
Date of Service: February 18, 2025
Patient seen and examined. No chest pain
Objective
Labs:
02/17/25 03:51
02/18/25 04:31
Labs
Hgb 12.5 g/dL (13.0-18.0) L 02/17/25 03:51
Hct 38.6 % (39.0-52.0) L 02/17/25 03:51
Plt Count 254 10^3/uL (130-400) 02/17/25 03:51
PT 15.4 Sec (11.4-14.6) H 02/08/25 08:26
INR 1.19 02/08/25 08:26
APTT 31.0 Sec (23.4-35.0) 02/08/25 08:26
Sodium 134 mmol/L (135-145) L 02/18/25 04:31
Potassium 4.0 mmol/L (3.5-5.1) 02/18/25 04:31
BUN 45 mg/dl (9-20) H 02/18/25 04:31
Creatinine 2.0 mg/dL (0.7-1.3) H 02/18/25 04:31
Glucose 136 mg/dl (70-99) H 02/18/25 04:31
Vital Signs and I&O:
Vital Signs
Temp Pulse Resp BP Pulse Ox
97.4 F 55 22 131/59 94
02/18/25 07:24 02/18/25 04:00 02/18/25 04:00 02/18/25 04:00 02/18/25 08:10
Vital Signs
Temp Pulse Resp BP Pulse Ox
97.4 F 55 22 131/59 94
02/18/25 07:24 02/18/25 04:00 02/18/25 04:00 02/18/25 04:00 02/18/25 08:10
Intake & Output
02/16/25 02/17/25 02/18/25 02/19/25
06:59 06:59 06:59 06:59
Intake Total 240 / 240
Output Total 1400 / 1400 925 / 925 675 / 675
Balance -1160 / -1160 -925 / -925 -675 / -675
Physical Exam
Physical Exam
General: No acute distress, flat affect, awake
Neck: Negative JVD
Heart: Regular, Negative S3 positive S1/S2, Negative S4, No murmur
Lungs: CTA b/l, negative wheezes/rales/rhonchi
Abd: Positive BS, NT/ND, neg rebound/rigidity/guarding
Ext: Negative cyanosis/clubbing/edema
Neuro: nonfocal
--- NOTE | 2025-02-18 09:50 | W.PN.NEPH.PH ---
Today's Communication / Plan
-
Now on oral torsemide
REEMA continues to worsen to 2, if this exacerbates we will check for obstructive cause
Assessment/Plan
-
IMP:
REEMA, possible CKD baseline cr 1.1
Acute hypoxic respiratory failure
Community-acquired pneumonia
Bilateral pleural effusions,. Thoracentesis right 300cc
Acute on chronic HFrEF 30-35%
Ischemic cardiomyopathy
Normocytic anemia
Recent STEMI with LAD stent 01/27/25
History of NSVT
Hyperlipidemia
Enlarged prostate
Plan:
recent STEMI LAD stent on 01/27 now a/w CHF flare
REEMA -cardiorenal, in setting of CHF and diuretics use
bland UA and bladder scan 102cc 02/10, low Fena and U PCR only 0.1gm/gm of cr, non acute renal US
cr slightly up at 2, non oliguric , lasix to be changed to po torsemide by cardiology
s/p RHC 02/15 with elevated PCWP of 28
monitor evolving met alkalosis
cont FR and diet restriction Re:hyponatremia/CHF
abx per primary
dose meds renally
labs in am
-
-
Date of Service: February 18, 2025
CC / HPI / ROS
-
Chief Complaint:
REEMA
History of Present Illness:
cr slightly up at 2
Hemodynamically stable at this
bicarb 35
wt decreasing
Review of Systems:
sob improved
no cp
no n/v
Weights down
Labs
-
Labs:
WBC 12.5 10^3/uL (4.8-10.8) H 02/17/25 03:51
RBC 4.19 10^6/uL (4.70-6.10) L 02/17/25 03:51
Hgb 12.5 g/dL (13.0-18.0) L 02/17/25 03:51
Hct 38.6 % (39.0-52.0) L 02/17/25 03:51
Plt Count 254 10^3/uL (130-400) 02/17/25 03:51
Sodium 134 mmol/L (135-145) L 02/18/25 04:31
Potassium 4.0 mmol/L (3.5-5.1) 02/18/25 04:31
Chloride 96 mmol/L (98-107) L 02/18/25 04:31
Carbon Dioxide 35 mmol/L (22-30) H 02/18/25 04:31
BUN 45 mg/dl (9-20) H 02/18/25 04:31
Creatinine 2.0 mg/dL (0.7-1.3) H 02/18/25 04:31
eGFR 31.31 02/18/25 04:31
Glucose 136 mg/dl (70-99) H 02/18/25 04:31
Calcium 9.3 mg/dl (8.4-10.2) 02/18/25 04:31
Tul-E-Tlzwciukbzw Pept 22924 pg/ml 02/12/25 04:44
Albumin 3.5 g/dl (3.5-5.0) 02/08/25 08:26
Physical Exam
-
Vital Signs:
Vital Signs
Temp Pulse Resp BP Pulse Ox
97.4 F 55 22 131/59 94
02/18/25 07:24 02/18/25 04:00 02/18/25 04:00 02/18/25 04:00 02/18/25 08:10
Cardiovascular:: Regular rate and rhythm
Respiratory:: Bilateral: CTA
Lung Excursion:: Normal
Abdomen:: Nontender and Soft
Extremity Edema:: None: Bilateral:
Barros Catheter: No
--- NOTE | 2025-02-18 11:21 | PTCARENOTE ---
Pt for transfer to [facility]. Report called to receiving RN. Belongings collected from room. Transferred via stretcher.
--- NOTE | 2025-02-18 14:39 | W.PN.HOSP.TC ---
Today's Communication/Plan
-
Transition to oral torsemide
Marginal BP
Creatinine rising at 2.0
Monitor hemodynamics and renal function over the next 24 hours
PT assessment
Assessment / Plan
Assessment / Plan
Acute hypoxic respiratory failure -oxygenation improved, now on room air.
Chest x-ray 02/13 shows improvement of pulmonary edema.
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
COVID, influenza neg
Speech consult noted, no evidence of overt aspiration. Cannot rule out silent aspiration. Recommendation for regular solids, thin liquids.
Pt also improved with steroids yesterday-unclear if he has a reactive airway component. Steroids discontinued by pulmonary. Patient needs PFTs as outpatient
Bilateral pleural effusions -appears transudative. Likely due to heart failure. Patient had right thoracentesis 02/11, 300 cc clear yellow pleural fluid removed. Cytology negative.
Acute on chronic HFrEF -currently on IV Lasix. Clinically improving.
Echocardiogram shows LVEF 30 to 35% with regional wall motion abnormalities. Mild to moderate MR, moderate TR.
Ischemic cardiomyopathy
BNP 23045
Intake output charting
Weight is down 10 kg since admission.
Holding valsartan secondary to REEMA. Continue Coreg
Eventually may benefit from SGLT2 inhibitors
Right heart catheterization done 02/15, PCWP 28, cardiac index 1.7.
REEMA -REEMA possibly due to cardiorenal syndrome due to heart failure exacerbation. Creatinine up to 2.0. Monitor closely while on diuretics
Mild contraction alkalosis noted. Will monitor.
Essential hypertension -stable. Has been off valsartan for REEMA.
Currently on carvedilol, hydralazine, isosorbide mononitrate. Will defer to cardiology further changes.
Hypokalemia - resolved.
Normocytic anemia -hemoglobin stable.
Hyponatremia -present on admission. Resolved.
Recent STEMI with LAD stent
Continue aspirin Plavix statin, Coreg. Hold valsartan
Follow troponin
History of NSVT
Hyperlipidemia-continue statin
Enlarged prostate-continue finasteride
Lifelong non-smoker
DVT prophylaxis - heparin.
Full code
Anticipated Discharge: 24 - 48 hours
Subjective/Interval History
-
Date of Service: February 18, 2025
Objective Data
-
Labs:
Laboratory Results
02/18/25
04:31
Sodium 134 L
Potassium 4.0
Chloride 96 L
Carbon Dioxide 35 H
BUN 45 H
Creatinine 2.0 H
Glucose 136 H
Calcium 9.3
Vital Signs:
Vital Signs
Temp Pulse Resp BP Pulse Ox
98.2 F 60 16 142/79 95
02/18/25 11:37 02/18/25 11:37 02/18/25 11:37 02/18/25 11:37 02/18/25 11:37
I&O
02/17/25 02/18/25 02/19/25
06:59 06:59 06:59
Output Total 925 / 925 675 / 675
Balance -925 / -925 -675 / -675
Physical Exam
-
General: Well Developed and No Apparent Distress
HEENT: Normocephalic, Atraumatic and Moist Mucous Membranes
Respiratory: Clear to Auscultation
Cardiac: Regular Rhythm and S1/S2; Negative Murmur, Rub or Gallop
GI: Soft, Nontender, Nondistended and Normal Bowel Sounds; Negative Organomegaly
Rectal: Deferred by Provider
Musculoskeletal: No Clubbing, No Cyanosis and No Edema
Skin: Negative Rash
Neuro: Nonfocal/Grossly Intact
[2025-02-18] MEDS: LIPITOR 40 MG PO (15:53)
[2025-02-18] MEDS: DESYREL 12.5 MG PO (20:53)
[2025-02-19] MEDS: HEPARIN 5000 UNITS SC ×2 (00:45→08:55)
[2025-02-19 03:34] VITALS: BP 138/74
[2025-02-19 06:00] VITALS: BMI 23.1
[2025-02-19 07:00] VITALS: BP 143/68
[2025-02-19 07:52] LABS: Blood Urea Nitrogen 51 mg/dl (9-20); Calcium 8.9 mg/dl (8.4-10.2); Chloride 96 mmol/L (98-107); Estimated Creatinine Clearance 23 ml/min; Glucose 113 mg/dl (70-99); Potassium 4.0 mmol/L (3.5-5.1); Sodium 138 mmol/L (135-145); eGFR 27.93
[2025-02-19 08:01] LABS: Carbon Dioxide 37 mmol/L (22-30)
[2025-02-19] MEDS: KCL 20 MEQ PO (08:54)
[2025-02-19] MEDS: PROTONIX 40 MG PO (08:54)
[2025-02-19] MEDS: APRESOLINE 25 MG PO (08:54)
[2025-02-19] MEDS: IMDUR (EXTENDED RELEASE) 30 MG PO (08:54)
[2025-02-19] MEDS: PROSCAR 5 MG PO (08:54)
[2025-02-19] MEDS: COREG 6.25 MG PO (08:55)
[2025-02-19] MEDS: LOW STRENGTH ASPIRIN 81 MG PO (08:55)
[2025-02-19] MEDS: PLAVIX 75 MG PO (08:55)
--- NOTE | 2025-02-19 08:57 | CM ---
F/U: Patient still having REEMA -REEMA possibly due to cardiorenal syndrome due to heart failure exacerbation so monitoring with diuretics. [facility] is following. PLAN: Home with [facility] for Heart Failure.
--- NOTE | 2025-02-19 09:05 | W.PN.CARDCBS ---
Today's Communication / Plan
-
His oral torsemide 20 mg BID was held by primary service with rising cr.
Creatinine rising to 2.2.
Appreciate nephrology input; if creatinine continues to worsen, nephrology to consider checking for obstructive causes vs new baseline. Will review with nephrology
As pt improved, did not receive inotropic therapy
Wt overall stable and down last 24 hrs
Cont Goal-directed medical therapy limited by renal insufficiency and borderline blood pressure: Continue carvedilol 6.25 mg twice daily,Imdur 30 mg twice daily, Hydralazine 25 mg TID
Will need outpatient repeat echocardiogram in next 3 months after revascularization and on goal-directed medical therapy to reassess EF. If EF remains less than 35% consider ICD.
Recent large anterior STEMI status post PCI to the LAD
Cont DAPT with ASA and Plavix (Transitioned off Brilinta last admit with dyspnea)
Cont statin, LDL goal <70
Impression / Plan
-
.
PCP: Dr. Self
Primary Insurance Sales Agent: Dr. Tere Lombardi
Impression:
Presentation with likely multifactorial dyspnea 02/08/2025
Acute hypoxic respiratory failure
Acute HFrEF
Cardiorenal syndrome
CAD
s/p acute anterior STEMI with peak troponin 326 01/27/2025
s/p 2.5 mm [place] MERYL to the ostial to mid LAD, residual [employer] ANCHOR RCA and ALEXEY-3 flow in the Circ and LAD at end of case 01/27/2025
ICM EF 35-40% by v-gram 01/27/25, 35% by echo 01/29/25
Elevated troponin, peak 0.9 trending down (last troponin prior to discharge from last admission was 326)
REEMA
HTN
Hypercholesterolemia
Reported h/o valvular heart disease and evidence of MR at time of cath 01/27/25
Witnessed BARTOLOME without h/o BARTOLOME 01/2025
intolerant to attempts at CPAP and BiPAP 01/27/25 into 01/28/25
PNA
Pleural effusion
s/p successful right sided thoracentesis for 300 mL of clear yellow pleural fluid 02/11/2025
Residual small left-sided pleural effusion on CXR 02/11/2025
Echo 01/28/25: EF 35%, akinesis of the mid inferoseptum, apical septum and apex with hypokinesis of the mid inferior wall and severe hypokinesis of the mid anterior wall, mod eccentric MR, mild peak/mean 29/15 mmHg and mild to mod aortic
regurgitation, mild TR with PAP 58 mmHg
Limited echo 01/31/25: EF 35%, akinesis of mid inferoseptum and inferior wall, apical septum and apex, hypokinesis of distal anterior wall
Echo 02/09/2025: EF 30 to 35%,entire septum and apex are akinetic. The entire anterior wall, entire inferior wall, basal and mid anterolateral wall, and apical lateral segment are hypokinetic,NL RV size and fxn, mild to moderate peak/mean 28/14
mmHg, mild to moderate MR with eccentric jet, mild to moderate TR with mild PHTN and PAP 53 mmHg, compared to echo 01/28/2025 and 01/31/2025 the findings are overall similar
Plan:
Medically complex to 89-year-old gentleman with recent admission for large anterior STEMI [peak troponin 326] with resultant ischemic cardiomyopathy EF 30-35%, status post LAD PCI on 01/27/2025 who presents back with acute on chronic HFrEF
Right heart cath Feb 15, 2025 with evidence for elevated LV filling pressures, RA 15, PA 48/24 with a mean of 32 and a wedge pressure of 28. Reduced cardiac output/cardiac index, 3.1 L/min and 1.7 L/minute/m-2 with increased SVR, 2194
s/p right thoracentesis for 300 cc Feb 11; Repeat chest x-ray February 13 with trace bilateral pleural effusion
His oral torsemide 20 mg BID was held by primary service with rising cr.
Creatinine rising to 2.2.
Appreciate nephrology input; if creatinine continues to worsen, nephrology to consider checking for obstructive causes vs new baseline. Will review with nephrology
As pt improved, did not receive inotropic therapy
Wt overall stable and down last 24 hrs
Cont Goal-directed medical therapy limited by renal insufficiency and borderline blood pressure: Continue carvedilol 6.25 mg twice daily,Imdur 30 mg twice daily, Hydralazine 25 mg TID
Will need outpatient repeat echocardiogram in next 3 months after revascularization and on goal-directed medical therapy to reassess EF. If EF remains less than 35% consider ICD.
Recent large anterior STEMI status post PCI to the LAD
Cont DAPT with ASA and Plavix (Transitioned off Brilinta last admit with dyspnea)
Cont statin, LDL goal <70
Witnessed BARTOLOME without h/o BARTOLOME 01/2025
Intolerant to attempts at CPAP and BiPAP 01/27/25 into 01/28/25
Continue efforts of PT/OT/cardiac rehab
Discussed with nursing
Progress Note - Insurance Sales Agent
Subjective
Date of Service: February 19, 2025
Pt seen and examined. No complaints. No chest pain or shortness of breath.
Objective
Labs:
02/17/25 03:51
02/19/25 07:01
Labs
Hgb 12.5 g/dL (13.0-18.0) L 02/17/25 03:51
Hct 38.6 % (39.0-52.0) L 02/17/25 03:51
Plt Count 254 10^3/uL (130-400) 02/17/25 03:51
PT 15.4 Sec (11.4-14.6) H 02/08/25 08:26
INR 1.19 02/08/25 08:26
APTT 31.0 Sec (23.4-35.0) 02/08/25 08:26
Sodium 138 mmol/L (135-145) 02/19/25 07:01
Potassium 4.0 mmol/L (3.5-5.1) 02/19/25 07:01
BUN 51 mg/dl (9-20) H 02/19/25 07:01
Creatinine 2.2 mg/dL (0.7-1.3) H 02/19/25 07:01
Glucose 113 mg/dl (70-99) H 02/19/25 07:01
Vital Signs and I&O:
Vital Signs
Temp Pulse Resp BP Pulse Ox
97.6 F 52 16 143/68 95
02/19/25 07:00 02/19/25 07:00 02/19/25 07:00 02/19/25 07:00 02/19/25 07:00
Vital Signs
Temp Pulse Resp BP Pulse Ox
97.6 F 52 16 143/68 95
02/19/25 07:00 02/19/25 07:00 02/19/25 07:00 02/19/25 07:00 02/19/25 07:00
Intake & Output
02/17/25 02/18/25 02/19/25 02/20/25
06:59 06:59 06:59 06:59
Intake Total 940 / 940
Output Total 925 / 925 675 / 675 450 / 450
Balance -925 / -925 -675 / -675 490 / 490
Physical Exam
Physical Exam
General: No acute distress, AAOX3
Neck: Negative JVD
Heart: Regular, Negative S3 positive S1/S2, Negative S4, No murmur
Lungs: CTA b/l, negative wheezes/rales/rhonchi
Abd: Positive BS, NT/ND, neg rebound/rigidity/guarding
Ext: Negative cyanosis/clubbing/edema
Neuro: nonfocal
--- NOTE | 2025-02-19 09:33 | CM ---
Spoke with Lakia, nurse from [facility], and updated her of the patient's status.
[2025-02-19] MEDS: DEMADEX PO (09:41)
[2025-02-19 11:00] VITALS: BP 108/59
--- NOTE | 2025-02-19 11:00 | W.DS.TRANS ---
DC Summary - Activities Director Scouting
-
Discharge Instructions:
Sleep Apnea Risk High
Discharge Diagnosis/Procedures Acute CHF
Ischemic CMP
CKD
Diet 2 Gram Sodium
Blood Work BMP in one week
Instructions: *DCA Heart Failure Instructions
Stand-Alone Forms:
Changes to Home Medications: Yes
Discharge Medications:
DC Medications w/original date entered in [employer]
finasteride 5 mg tablet 5 mg PO Q48H Urinary Issue 01/27/25
aspirin 81 mg chewable tablet 81 mg PO DAILY Heart disease/condition 90 days #90 tabs 02/01/25
atorvastatin 40 mg tablet 40 mg PO QPM High cholesterol #90 tabs 02/01/25
carvedilol 6.25 mg tablet 6.25 mg PO BID Heart disease/condition #180 tabs 02/01/25
clopidogrel 75 mg tablet 75 mg PO DAILY Heart disease/condition #90 tabs 02/01/25
nitroglycerin 0.4 mg sublingual tablet 0.4 mg sublingual [id number] PRN chest pain 02/08/25
pantoprazole 40 mg tablet,delayed release 40 mg PO DAILY Gastrointestinal Issue 02/08/25
hydralazine 25 mg tablet 25 mg PO TID #90 tabs 02/19/25
isosorbide mononitrate 30 mg tablet,extended release 24 hr 30 mg PO DAILY #30 tabs 02/19/25
potassium chloride 20 mEq tablet,extended release(part/cryst) (Klor-Con M) 20 meq PO DAILY #30 tabs 02/19/25
torsemide 20 mg tablet 20 mg PO BID@0800,1600 #60 tabs 02/19/25
trazodone 50 mg tablet 12.5 mg (1/4 x 50 mg) PO HS #30 tabs 02/19/25
Home Medication Changes
Imdur and Hydralazine replaced Valsartan
Torsemide replaced Furosemide
Torsemide initiated
Pending Results: No
--- NOTE | 2025-02-19 11:40 | CM ---
Pt discharged. He is going to stay with his son and receive [facility] there. [facility] updated on discharge status
Plan: DC to Son's home with [facility]
--- NOTE | 2025-02-19 12:52 | PTCARENOTE ---
Rn parts coordinator- Patients son called and reviewed dc instructions. 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
== END 2025-02-19 13:50 | disposition home health service (06) | DRG 280 ==
LOC: 4 EAST ACU 11:21
PROVIDERS: Hospitalist; Radiology Vascular & Interventional Radiology; ADMITTING PHYSICIAN Hospitalist; ATTENDING PHYSICIAN Internal Medicine; CONSULT PHYSICIAN Internal Medicine; EMERGENCY PHYSICIAN Student in an Organized Health Care Education/Training Program; FAMILY PHYSICIAN Internal Medicine; OTHER PHYSICIAN Internal Medicine Critical Care Medicine; OTHER PHYSICIAN Internal Medicine Interventional Cardiology
PROC: 0W993ZZ Drainage of Right Pleural Cavity, Percutaneous Approach (ICD-10-PCS; 2025-02-11)
PROC: 5A09357 Assistance with Respiratory Ventilation, Less than 24 Consecutive Hours, Continuous Positive Airway Pressure (ICD-10-PCS; 2025-02-12)
PROC: 4A023N6 Measurement of Cardiac Sampling and Pressure, Right Heart, Percutaneous Approach (ICD-10-PCS; 2025-02-15)
PROC: B2141ZZ Fluoroscopy of Right Heart using Low Osmolar Contrast (ICD-10-PCS; 2025-02-15)
DX: I13.0 Hypertensive heart and chronic kidney disease with heart failure and stage 1 through stage 4 chronic kidney disease, or unspecified chronic kidney disease (principal); I50.23 Acute on chronic systolic (congestive) heart failure; I21.09 ST elevation (STEMI) myocardial infarction involving other coronary artery of anterior wall; J96.01 Acute respiratory failure with hypoxia; J18.9 Pneumonia, unspecified organism; I47.20 Ventricular tachycardia, unspecified; N17.9 Acute kidney failure, unspecified; E87.1 Hypo-osmolality and hyponatremia; J90 Pleural effusion, not elsewhere classified; E78.00 Pure hypercholesterolemia, unspecified; I25.10 Atherosclerotic heart disease of native coronary artery without angina pectoris; I25.5 Ischemic cardiomyopathy; D64.9 Anemia, unspecified; R73.9 Hyperglycemia, unspecified; N18.9 Chronic kidney disease, unspecified; I21.21 ST elevation (STEMI) myocardial infarction involving left circumflex coronary artery; I27.20 Pulmonary hypertension, unspecified; N40.0 Benign prostatic hyperplasia without lower urinary tract symptoms; E87.6 Hypokalemia; F41.9 Anxiety disorder, unspecified; I35.1 Nonrheumatic aortic (valve) insufficiency; G47.33 Obstructive sleep apnea (adult) (pediatric); R73.03 Prediabetes; I34.0 Nonrheumatic mitral (valve) insufficiency; Z95.5 Presence of coronary angioplasty implant and graft; Z79.82 Long term (current) use of aspirin; Z79.02 Long term (current) use of antithrombotics/antiplatelets; Z79.899 Other long term (current) drug therapy
CPT/HCPCS: 32555; 71045; 71250; 76604; 76775; 80048; 80053; 81003; 81015; 82570; 82945; 83605; 83615; 83735; 83880; 83986; 84155; 84156; 84157; 84300; 84484; 85025; 85027; 85610; 85730; 87015; 87040; 87070; 87205; 87449; 87502; 87811; 87899; 88112; 88305; 89051; 92526; 92610; 93005; 93306; 93451; 93970; 94640; 94660; 96365; 96367; 96375; 97163; 97530; 99291; C1894

== ENCOUNTER → 2025-03-25 08:43 | Outpatient (REF) | payer OTHER, SELFPAY ==
[2025-03-25 11:00] LABS: Blood Urea Nitrogen 35 mg/dl (9-20); Calcium 9.1 mg/dl (8.4-10.2); Carbon Dioxide 29 mmol/L (22-30); Chloride 100 mmol/L (98-107); Glucose 128 mg/dl (70-99); Potassium 4.2 mmol/L (3.5-5.1); Sodium 138 mmol/L (135-145); eGFR 29.53
== END ==
LOC: REG 08:43
PROVIDERS: ATTENDING PHYSICIAN Physician Assistant; FAMILY PHYSICIAN Internal Medicine
DX: I50.20 Unspecified systolic (congestive) heart failure (principal)
CPT/HCPCS: 36415; 80048

== ENCOUNTER 2025-04-03 11:48 | Outpatient (RCR) | payer OTHER, SELFPAY | END 2025-04-03 23:59 | disposition home or self-care (01) | LOC: CRHB 11:48 | PROVIDERS: ATTENDING PHYSICIAN Internal Medicine Cardiovascular Disease | DX: I21.01 ST elevation (STEMI) myocardial infarction involving left main coronary artery (principal); I25.10 Atherosclerotic heart disease of native coronary artery without angina pectoris (principal); Z95.5 Presence of coronary angioplasty implant and graft; I25.2 Old myocardial infarction | CPT/HCPCS: G0422; G0423 ==